=== PATIENT | male | born 1940 | race Caucasian/White ===

== ENCOUNTER 2016-09-26 13:42 | Emergency (ER) | payer MEDICARE, OTHER ==
[~2016-09-26 13:42] MED LIST: /PANT40TA; /WARF25TA; AMLO10TA; ASPI325T; ASPI81TA63 PO; ATOR1TAB21 PO; ATORVASTATIN PO; AUGM250S13 PO; BENA25TA4 PO; BISO10TA PEG; CEFA1TAB; CEPH25SS PO; CHIL1CHW5 PEG; CHLORHEXIDINE; CHLORHEXIDINE GLUCON; DIGO0.12 PO; DUCOLAX; ELIQ5TAB PO; HYDR25TA6; HYDROCHLOROTHIAZIDE; LASI40TA PO; LOSA50TA20 PO; MAGO400T PO; NEUR100C; PLAV75TA2; POTA20LI2 PO; PRIN10TA; TOPR100T; TYLE325T5 PO; TYLENOL #3; VALT500T; ZEBE5TAB PO; ZOCO20TA; ZOCO40TA
--- NOTE | 2016-09-26 15:09 | EDDOCDS ---
Physician Documentation [facility] Name: Ruddy Parekh Age: 76 yrs Sex: Male : 1940 Arrival Date: 09/26/2016 Time: 13:42 Bed I9 / Private MD: Disposition: 09/26/16 15:00 Discharged to Home/Self Care. Impression: Feeding difficulties - G tube replaced. - Condition is Stable. - Medication Reconciliation, Local Pharmacy Hours form. - Follow up: Private Physician; When: 1 - 2 days. - Problem is new. - Symptoms have improved. - Notes: diagnosis - feeding tube replaced. follow up with your primary care physician. return if worsening symptoms Historical: - Allergies: no known allergies; - Home Meds: 1. Eliquis 5 mg oral tab 2 times per day 2. aspirin 81 mg Oral tab 1 tab once daily 3. Jevity 1.5 Xander 0.06 gram-1.5 kcal/mL oral liqd 6x's day 4. atorvastatin 20 mg oral tab 1 tab once daily 5. bisoprolol fumarate 10 mg oral tab 1 tab once daily 6. digoxin 125 mcg Oral tab 1 tab once daily 7. losartan 25 mg oral tab 1 tab once daily - PMHx: Stroke; Hypertension; Hypercholesterolemia; Atrial Fib; cancer, neck; - PSHx: Carotid surgery; Tonsillectomy; Splenectomy; Appendectomy; feeding tube placement; - Social history: Smoking status: Patient states former smoker of tobacco. No barriers to communication noted, The patient speaks fluent Cuban. - Family history: Not pertinent. - : The pt / caregiver states he / she is on anticoagulants: Eliquis Home medication list is obtained from patients' pharmacy. - Exposure Risk Screening:: None identified. Vital Signs: 09/26 13:43 BP 203 / 112 LA Sitting (auto/reg); Pulse 80; Resp 18; Temp 98.8(O); Pulse Ox 97% ; bnb Weight 63.5 kg / 139.99 lbs; Height 5 ft. 6 in. (167.64 cm); Pain 0/10; 13:55 BP 180 / 102 LA Sitting (man/reg); jjr 13:43 Body Mass Index 22.60 (63.50 kg, 167.64 cm) bnb MDM: 14:48 Financial registration complete. [facility] Signatures: Hannah Gao MD MD ml Barney, Michael B RN RN mlb1 Sherry HolguinRN RN ck1 Linda Funk RN RN Alicia Sam jls1 The chart was reviewed and I authenticate all verbal orders and agree with the evaluation and treatment provided.Corrections: (The following items were deleted from the chart) 14:10 13:58 Home Meds: Kinjody coffeen; gurinder jjr 14:10 13:58 PMHx: cancer, tongue; carmelojr jjpedro MTDD
--- NOTE | 2016-09-26 15:09 | EDDOCDS ---
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 Adult Sepsis Screening: The patient does not have new or worsening altered mentation. Patient's respiratory rate is less than 22. Systolic blood pressure is greater than 100. Patient has a qSOFA score of 0- Negative Sepsis Screen. Suicide/Homicide risk assessment- the patient denies having any suicidal and/or homicidal ideations and does not present with any other emotional, behavioral or mental health complaints. 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 Transition of care: patient was not received from another setting of care. 13:55 Acuity: MANDY Level 4 jjr 13:55 Method Of Arrival: Walkin/Carried/Asstd jjr Triage Assessment: 13:58 General: Appears in no apparent distress. Pain: Denies pain. jjr Historical: - Allergies: no known allergies; - Home Meds: 1. Eliquis 5 mg oral tab 2 times per day 2. aspirin 81 mg Oral tab 1 tab once daily 3. Jevity 1.5 Xander 0.06 gram-1.5 kcal/mL oral liqd 6x's day 4. atorvastatin 20 mg oral tab 1 tab once daily 5. bisoprolol fumarate 10 mg oral tab 1 tab once daily 6. digoxin 125 mcg Oral tab 1 tab once daily 7. losartan 25 mg oral tab 1 tab once daily - PMHx: Stroke; Hypertension; Hypercholesterolemia; Atrial Fib; cancer, neck; - PSHx: Carotid surgery; Tonsillectomy; Splenectomy; Appendectomy; feeding tube placement; - Social history: Smoking status: Patient states former smoker of tobacco. No barriers to communication noted, The patient speaks fluent Persian. - Family history: Not pertinent. - : The pt / caregiver states he / she is on anticoagulants: Eliquis Home medication list is obtained from patients' pharmacy. - Exposure Risk Screening:: None identified. Screenin:22 Screening information is obtained from the patient. Fall risk: No risks identified. ck1 Assistance ADL's: requires no assistance with activities of daily living. Abuse/DV Screen: The patient / caregiver reports he/she is: not in a situation that causes fear, pain or injury. Nutritional screening: No deficits noted. Advance Directives: Currently, there is no health care proxy. home support is adequate. Assessment: 14:52 General: Appears in no apparent distress, Behavior is appropriate for age, cooperative. mlb1 Pain: Denies pain. GI: PEG tube replace by Dr. Cary tolerated well. Derm: No deficits noted. Vital Signs: 13:43 BP 203 / 112 LA Sitting (auto/reg); Pulse 80; Resp 18; Temp 98.8(O); Pulse Ox 97% ; bnb Weight 63.5 kg; Height 5 ft. 6 in. (167.64 cm); Pain 0/10; 13:55 BP 180 / 102 LA Sitting (man/reg); jjr 13:43 Body Mass Index 22.60 (63.50 kg, 167.64 cm) b Vitals: 13:43 Log In Time: September 26, 2016 at 13:40. bnb 13:43 RN notified that patient meets Red Flag criteria. [facility] ED Course: 13:43 Patient visited by Kelsie Mcarthur PCA. bnb 13:43 Patient moved to Waiting bnb 13:56 Triage Initiated jjr 14:00 Patient moved to Pre RCE jjr 14:11 Patient moved to I9 / 22 jjr 14:12 Hannah Gao MD is Attending Physician. ml 14:12 Patient visited by Hannah Gao MD. ml 14:22 The patient / caregiver is instructed regarding the plan of care and ED course. ck1 14:53 No IV's were initiated during this patient's visit. No procedures done that require mlb1 assistance. Order Results: There are currently no results for this order. Outcome: 15:00 Discharge ordered by Provider. ml 15:06 Discharge Assessment: Patient awake, alert and oriented x 3. No cognitive and/or mlb1 functional deficits noted. Patient verbalized understanding of disposition instructions. patient administered narcotics - no. The following High Risk Discharge criteria are identified: None. Discharged to Pt left prior to receiving discharge instruction. Instructions given verbally by MD prior to being printed. Condition: good. No special radiology studies were completed. Property sent home with patient. 15:07 Patient left the ED. mlb1 Signatures: Hannah Gao MD MD ml Oliverio Polanco RN RN mlb1 Sherry HolguinRN RN ck1 Linda Funk RN RN jjr Kelsie Mcarthur, LEO TUBE CUTTER OPERATOR bnb Corrections: (The following items were deleted from the chart) 14:10 13:58 Home Meds: Lewis burgosn; jjpedro jjr 14:10 13:58 PMHx: cancer, tongue; jjr jjr MTDD
--- NOTE | 2016-09-28 16:08 | EDDOCDS ---
Physician Documentation [facility] Name: Ruddy Parekh Age: 76 yrs Sex: Male : 1940 Arrival Date: 09/26/2016 Time: 13:42 Bed I9 / Private MD: Disposition: 09/26/16 15:00 Discharged to Home/Self Care. Impression: Feeding difficulties - G tube replaced. - Condition is Stable. - Medication Reconciliation, Local Pharmacy Hours form. - Follow up: Private Physician; When: 1 - 2 days. - Problem is new. - Symptoms have improved. - Notes: diagnosis - feeding tube replaced. follow up with your primary care physician. return if worsening symptoms Historical: - Allergies: no known allergies; - Home Meds: 1. Eliquis 5 mg oral tab 2 times per day 2. aspirin 81 mg Oral tab 1 tab once daily 3. Jevity 1.5 Xander 0.06 gram-1.5 kcal/mL oral liqd 6x's day 4. atorvastatin 20 mg oral tab 1 tab once daily 5. bisoprolol fumarate 10 mg oral tab 1 tab once daily 6. digoxin 125 mcg Oral tab 1 tab once daily 7. losartan 25 mg oral tab 1 tab once daily - PMHx: Stroke; Hypertension; Hypercholesterolemia; Atrial Fib; cancer, neck; - PSHx: Carotid surgery; Tonsillectomy; Splenectomy; Appendectomy; feeding tube placement; - Social history: Smoking status: Patient states former smoker of tobacco. No barriers to communication noted, The patient speaks fluent Slovak. - Family history: Not pertinent. - : The pt / caregiver states he / she is on anticoagulants: Eliquis Home medication list is obtained from patients' pharmacy. - Exposure Risk Screening:: None identified. Vital Signs: 09/26 13:43 BP 203 / 112 LA Sitting (auto/reg); Pulse 80; Resp 18; Temp 98.8(O); Pulse Ox 97% ; bnb Weight 63.5 kg / 139.99 lbs; Height 5 ft. 6 in. (167.64 cm); Pain 0/10; 13:55 BP 180 / 102 LA Sitting (man/reg); jjr 13:43 Body Mass Index 22.60 (63.50 kg, 167.64 cm) bnb MDM: 14:48 Financial registration complete. jls1 15:16 [facility] Payment Agreement was scanned into [employer] and attached to record. jl 19:50 T-Sheet-- Draft Copy was scanned into [employer] and attached to record. klr Signatures: Hannah Gao MD MD ml Barney, Michael B RN RN mlb1 Sherry Holguin RN RN ck1 Linda Funk RN RN jjAlicia Brooks jls1 Melodie Bowen The chart was reviewed and I authenticate all verbal orders and agree with the evaluation and treatment provided.Corrections: (The following items were deleted from the chart) 14:10 13:58 Home Meds: Kinjody coffeen; gurinder jjr 14:10 13:58 PMHx: cancer, tongue; jjpedro jjpedro Attachments: 15:16 [facility] Payment Agreement [facility] 19:50 T-Sheet-- Draft Copy klr Chart Complete MTDD
--- NOTE | 2016-09-28 16:08 | EDDOCDS ---
Physician Documentation [facility] Name: Ruddy Parekh Age: 76 yrs Sex: Male : 1940 Arrival Date: 09/26/2016 Time: 13:42 Bed I9 / Private MD: Disposition: 09/26/16 15:00 Discharged to Home/Self Care. Impression: Feeding difficulties - G tube replaced. - Condition is Stable. - Medication Reconciliation, Local Pharmacy Hours form. - Follow up: Private Physician; When: 1 - 2 days. - Problem is new. - Symptoms have improved. - Notes: diagnosis - feeding tube replaced. follow up with your primary care physician. return if worsening symptoms Historical: - Allergies: no known allergies; - Home Meds: 1. Eliquis 5 mg oral tab 2 times per day 2. aspirin 81 mg Oral tab 1 tab once daily 3. Jevity 1.5 Xander 0.06 gram-1.5 kcal/mL oral liqd 6x's day 4. atorvastatin 20 mg oral tab 1 tab once daily 5. bisoprolol fumarate 10 mg oral tab 1 tab once daily 6. digoxin 125 mcg Oral tab 1 tab once daily 7. losartan 25 mg oral tab 1 tab once daily - PMHx: Stroke; Hypertension; Hypercholesterolemia; Atrial Fib; cancer, neck; - PSHx: Carotid surgery; Tonsillectomy; Splenectomy; Appendectomy; feeding tube placement; - Social history: Smoking status: Patient states former smoker of tobacco. No barriers to communication noted, The patient speaks fluent Tanzanian. - Family history: Not pertinent. - : The pt / caregiver states he / she is on anticoagulants: Eliquis Home medication list is obtained from patients' pharmacy. - Exposure Risk Screening:: None identified. Vital Signs: 09/26 13:43 BP 203 / 112 LA Sitting (auto/reg); Pulse 80; Resp 18; Temp 98.8(O); Pulse Ox 97% ; bnb Weight 63.5 kg / 139.99 lbs; Height 5 ft. 6 in. (167.64 cm); Pain 0/10; 13:55 BP 180 / 102 LA Sitting (man/reg); jjr 13:43 Body Mass Index 22.60 (63.50 kg, 167.64 cm) bnb MDM: 14:48 Financial registration complete. jls1 15:16 [facility] Payment Agreement was scanned into [employer] and attached to record. jl 19:50 T-Sheet-- Draft Copy was scanned into [employer] and attached to record. klr Signatures: Hannah Gao MD MD ml Barney, Michael B RN RN mlb1 Sherry Holguin RN RN ck1 Linda Funk RN RN jjAlicia Brooks jls1 Melodie Bowen The chart was reviewed and I authenticate all verbal orders and agree with the evaluation and treatment provided.Corrections: (The following items were deleted from the chart) 14:10 13:58 Home Meds: Kinjody coffeen; gurinder jjr 14:10 13:58 PMHx: cancer, tongue; jjpedro jjpedro Attachments: 15:16 [facility] Payment Agreement [facility] 19:50 T-Sheet-- Draft Copy klr Chart Complete MTDD
--- NOTE | 2016-09-28 16:08 | EDDOCDS ---
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 Adult Sepsis Screening: The patient does not have new or worsening altered mentation. Patient's respiratory rate is less than 22. Systolic blood pressure is greater than 100. Patient has a qSOFA score of 0- Negative Sepsis Screen. Suicide/Homicide risk assessment- the patient denies having any suicidal and/or homicidal ideations and does not present with any other emotional, behavioral or mental health complaints. Status: Patient is not a service worker helper or dependent. Transition of care: patient was not received from another setting of care. 13:55 Acuity: MANDY Level 4 jjr 13:55 Method Of Arrival: Walkin/Carried/Asstd jjr Triage Assessment: 13:58 General: Appears in no apparent distress. Pain: Denies pain. jjr Historical: - Allergies: no known allergies; - Home Meds: 1. Eliquis 5 mg oral tab 2 times per day 2. aspirin 81 mg Oral tab 1 tab once daily 3. Jevity 1.5 Xander 0.06 gram-1.5 kcal/mL oral liqd 6x's day 4. atorvastatin 20 mg oral tab 1 tab once daily 5. bisoprolol fumarate 10 mg oral tab 1 tab once daily 6. digoxin 125 mcg Oral tab 1 tab once daily 7. losartan 25 mg oral tab 1 tab once daily - PMHx: Stroke; Hypertension; Hypercholesterolemia; Atrial Fib; cancer, neck; - PSHx: Carotid surgery; Tonsillectomy; Splenectomy; Appendectomy; feeding tube placement; - Social history: Smoking status: Patient states former smoker of tobacco. No barriers to communication noted, The patient speaks fluent Bermudian. - Family history: Not pertinent. - : The pt / caregiver states he / she is on anticoagulants: Eliquis Home medication list is obtained from patients' pharmacy. - Exposure Risk Screening:: None identified. Screenin:22 Screening information is obtained from the patient. Fall risk: No risks identified. ck1 Assistance ADL's: requires no assistance with activities of daily living. Abuse/DV Screen: The patient / caregiver reports he/she is: not in a situation that causes fear, pain or injury. Nutritional screening: No deficits noted. Advance Directives: Currently, there is no health care proxy. home support is adequate. Assessment: 14:52 General: Appears in no apparent distress, Behavior is appropriate for age, cooperative. mlb1 Pain: Denies pain. GI: PEG tube replace by Dr. Cary tolerated well. Derm: No deficits noted. Vital Signs: 13:43 BP 203 / 112 LA Sitting (auto/reg); Pulse 80; Resp 18; Temp 98.8(O); Pulse Ox 97% ; bnb Weight 63.5 kg; Height 5 ft. 6 in. (167.64 cm); Pain 0/10; 13:55 BP 180 / 102 LA Sitting (man/reg); jjr 13:43 Body Mass Index 22.60 (63.50 kg, 167.64 cm) b Vitals: 13:43 Log In Time: September 26, 2016 at 13:40. bnb 13:43 RN notified that patient meets Red Flag criteria. b ED Course: 13:43 Patient visited by Kelsie Mcarthur PCA. bnb 13:43 Patient moved to Waiting bnb 13:56 Triage Initiated jjr 14:00 Patient moved to Pre RCE jjr 14:11 Patient moved to I9 / 22 jjr 14:12 Hannah Gao MD is Attending Physician. ml 14:12 Patient visited by Hannah Gao MD. ml 14:22 The patient / caregiver is instructed regarding the plan of care and ED course. ck1 14:53 No IV's were initiated during this patient's visit. No procedures done that require mlb1 assistance. 15:16 [facility] Payment Agreement was scanned into [employer] and attached to record. jls1 19:50 T-Sheet-- Draft Copy was scanned into [employer] and attached to record. klr Order Results: There are currently no results for this order. Outcome: 15:00 Discharge ordered by Provider. ml 15:06 Discharge Assessment: Patient awake, alert and oriented x 3. No cognitive and/or mlb1 functional deficits noted. Patient verbalized understanding of disposition instructions. patient administered narcotics - no. The following High Risk Discharge criteria are identified: None. Discharged to Pt left prior to receiving discharge instruction. Instructions given verbally by MD prior to being printed. Condition: good. No special radiology studies were completed. Property sent home with patient. 15:07 Patient left the ED. mlb1 Signatures: Hannah Gao MD MD ml Oliverio Polanco RN RN mlb1 Sherry Holguin RN RN ck1 Linda Funk RN RN Alicia Sam jls1 Melodie Bowen Brittney, LEO HOTEL OPERATION MANAGER bnb Corrections: (The following items were deleted from the chart) 14:10 13:58 Home Meds: Lewis brandon; gurinder jjr 14:10 13:58 PMHx: cancer, tongue; gurinder jjr Chart Complete MTDD
== END 2016-09-26 15:07 | disposition home or self-care (01) ==
LOC: M ED 13:42
DX: R63.3 Feeding difficulties (principal); Z96.89 Presence of other specified functional implants; I63.9 Cerebral infarction, unspecified; I10 Essential (primary) hypertension; E78.00 Pure hypercholesterolemia, unspecified; I48.91 Unspecified atrial fibrillation; Z85.9 Personal history of malignant neoplasm, unspecified; Z87.891 Personal history of nicotine dependence; Z79.01 Long term (current) use of anticoagulants; Z79.82 Long term (current) use of aspirin; Z79.899 Other long term (current) drug therapy

== ENCOUNTER 2017-01-22 10:53 | Emergency (ER) | payer MEDICARE, OTHER ==
[~2017-01-22] VITALS: Ht 167.6 cm; Wt 64.4 kg
[2017-01-22] MEDS ORDERED: NYST50SS SS (11:06)
[2017-01-22] MEDS ORDERED: ALBUTEROL SULFATE 2.5 MG/0.5 ML INH NEB SOLN NEB ONE (12:00)
--- NOTE | 2017-01-22 12:03 | REP ---
PA and lateral chest: There are parous is 01/10/2015. Lung cesar are clear. Cardiac size is borderline enlarged, unchanged. The magalis, mediastinum, and bony thorax are unremarkable. There are surgical clips in the soft tissues of the neck on the left, unchanged. Impression: No acute cardiopulmonary findings. Chronic borderline cardiac size. Signed by Todd Herrera MD 01/22/2017 11:55 A
[2017-01-22] MEDS ORDERED: AVEL400T PEG (12:46)
[2017-01-22] MEDS ORDERED: ALBU17IN2 INH (12:47)
[2017-01-22 12:58] VITALS: BP 148/78
== END 2017-01-22 13:01 | disposition home or self-care (01) ==
LOC: M ED 11:24
DX: J20.9 Acute bronchitis, unspecified (principal); J45.901 Unspecified asthma with (acute) exacerbation; I25.10 Atherosclerotic heart disease of native coronary artery without angina pectoris; I10 Essential (primary) hypertension; E78.00 Pure hypercholesterolemia, unspecified; Z86.73 Personal history of transient ischemic attack (TIA), and cerebral infarction without residual deficits; Z95.5 Presence of coronary angioplasty implant and graft; Z90.89 Acquired absence of other organs; Z85.810 Personal history of malignant neoplasm of tongue; Z79.01 Long term (current) use of anticoagulants; Z79.899 Other long term (current) drug therapy; Z87.891 Personal history of nicotine dependence; Z93.1 Gastrostomy status

== ENCOUNTER 2017-05-24 09:18 | Inpatient (IN) | payer MEDICARE, OTHER ==
[~2017-05-24] VITALS: Ht 167.6 cm; Wt 62.6 kg
[~2017-05-24 09:18] MED LIST changes: +ALBU17IN2 INH; +ATOR1TAB21 PEG; -ATOR1TAB21 PO; +AVEL400T PEG; +BISOPROLOL FUMARATE 10 MG TAB PEG SCH; -CHIL1CHW5 PEG; +CHIL81CH2 PEG; +DIGO0.12 PEG; -DIGO0.12 PO; +NYST50SS SS
[2017-05-24] MEDS ORDERED: JEVILIQ10 PEG (09:32)
[2017-05-24] MEDS ORDERED: methylPREDNISolone INJ 125 MG/2 ML VIAL (J2930) IV ONE (09:45)
[2017-05-24] MEDS: IPRATROPIUM 0.5MG/ALBUTEROL 2.5MG INH SOL UD 3ML (DUONEB)(J7620) NEB PRN ×3 (09:46→10:04)
[2017-05-24 10:03] LABS: BASO # 0.1 10^3/uL (0.0-0.2); BASO % 0.2 % (0.0-1.0); IMMATURE GRANULOCYTE % 0.8 % (0-0); LYMPH # 0.9 10^3/uL (1.5-4.5); LYMPH % 3.1 % (24.0-44.0); MEAN CORPUSCULAR HGB CONC 33.5 g/dl (32.0-36.5); MEAN CORPUSCULAR VOLUME 98.3 fl (80.0-96.0); MONO % 3.4 % (0.0-5.0); NEUTROPHILS % 92.5 % (36.0-66.0); PLATELET COUNT, AUTOMATED 225 10^3/uL (150-450); RED CELL DISTRIBUTION WIDTH 13.2 % (11.5-14.5); WHITE BLOOD COUNT 29.9 10^3/uL (4.0-10.0)
[2017-05-24 10:12] LABS: ANION GAP 11 MEQ/L (8-16); BLOOD UREA NITROGEN 19 MG/DL (7-18); CALCIUM LEVEL 9.5 MG/DL (8.8-10.2); CARBON DIOXIDE LEVEL 25 MEQ/L (21-32); CHLORIDE LEVEL 102 MEQ/L (98-107); CREATININE FOR GFR 1.12 MG/DL (0.70-1.30); GLOMERULAR FILTRATION RATE > 60.0 (>42); GLUCOSE, FASTING 174 MG/DL (83-110); SODIUM LEVEL 138 MEQ/L (136-145)
[2017-05-24 10:13] LABS: NEUTROPHILS # 27.7 10^3/uL (1.8-7.7)
[2017-05-24 10:22] LABS: DIGOXIN LEVEL 0.7 NG/ML (0.5-2.0)
[2017-05-24 10:36] VITALS: O2SAT 92
[2017-05-24] MEDS ORDERED: FUROSEMIDE 40 MG/4 ML VIAL (J1940) IV ONE (10:45)
--- NOTE | 2017-05-24 10:52 | REP ---
Chest x-ray: Two views. History: Dyspnea and cough. Comparison chest x-ray January 22, 2017. Findings: The lungs are symmetrically aerated and free of infiltrate. Pleural angles are sharp. Heart size is normal. There are surgical clips in the supraclavicular soft tissues on the left again noted. The aorta is calcific. There are degenerative changes in the thoracic spine. Impression: No active disease. Signed by Drew Zacarias MD 05/24/2017 05:27 P
[2017-05-24] MEDS ORDERED: ONDANSETRON 4 MG TAB (S0181) PO PRN (11:30)
[2017-05-24] MEDS ORDERED: ACETAMINOPHEN TAB 650MG DOSE (2X325MG) PO PRN (11:30)
[2017-05-24] MEDS ORDERED: ONDANSETRON 4MG/2ML VIAL (J2405) IV PRN (11:30)
[2017-05-24] MEDS ORDERED: PERCOCET 5MG/325MG TAB PO PRN (11:30)
[2017-05-24] MEDS ORDERED: LOSA25TA8 PEG (11:40)
[2017-05-24] MEDS ORDERED: BISO10TA PEG (11:40)
[2017-05-24] MEDS ORDERED: LevoFLOXacin IV 750 MG in APPROPRIATE DILUENT 1 EA IV SCH (12:00)
[2017-05-24] MEDS ORDERED: CLINDAMYCIN 300 MG in APPROPRIATE DILUENT 1 EA IV SCH (12:00)
[2017-05-24] MEDS ORDERED: IPRATROPIUM 0.5MG/ALBUTEROL 2.5MG INH SOL UD 3ML (DUONEB)(J7620) NEB SCH (14:00)
[2017-05-24 15:00] VITALS: BP 132/68
--- NOTE | 2017-05-24 15:17 | REP ---
CT study of the chest without contrast: History: Cough. History of carcinoma the neck. Possible aspiration. Leukocytosis. Comparison chest CT study: April 28, 2015. Comparison is made with chest x-ray from today. CT findings: The lungs show no evidence of infiltrate. No pulmonary nodule or mass lesion is observed. There is fairly extensive vascular calcification. Fluid is seen throughout the thoracic esophagus without esophageal dilation consistent with reflux. Fluid filled stomach is noted. Gastrostomy tube is noted in place within the stomach. There is a faint calcification in the dependent portion the gallbladder consistent with cholelithiasis. Left renal cyst is noted. There is a left hepatic cyst. No hilar mass lesion is seen. There is subcarinal lymph node enlargement. This is unchanged from the comparison CT study in 2014. Stable precarinal lymph nodes are seen. No adrenal lesion is observed. Impression: No evidence of infiltrate, pleural effusion or pulmonary edema. Vascular calcification noted. Left renal and the left lobe hepatic cysts. Evidence of gastroesophageal reflux. G tube in place. Signed by Drew Zacarias MD 05/24/2017 05:28 P
--- NOTE | 2017-05-24 17:13 | HPEPDOC ---
[facility] Medical History & Physical Date of Admission May 24, 2017 History and Physical HISTORY AND PHYSICAL Date of admission: 05/24/2017 PCP: Dr. Bri Buenrostro Chief complaint: Cough with associated chest pain HPI: 77-year-old male with hypertension, hyperlipidemia, history of CVA 2, atrial fibrillation, head and neck cancer status post surgical excision as well as chemotherapy and radiation, chronic dysphasia secondary to cancer treatment with PEG tube feeds who presented to the emergency department with cough and associated chest pain. He states that he started coughing more than usual approximately 2-3 days ago, and was even up all night from the cough. Yesterday , he started having chest pain that occurred when he coughed, and he was concerned that maybe he was having a heart attack, so he came to the emergency department. He states that the chest pain only occurs when he coughs. He also states that because he was coughing so much, he vomited last night and today. He denies any fevers, and states that he does not usually use oxygen at home. In the emergency department, there is concern that he was fluid overloaded, so he received a dose of Lasix. There is also concern that he was having a COPD exacerbation, although, the patient tells me that he has never been diagnosed with COPD. He received Solu-Medrol in the emergency department, but the patient denies any other recent steroids. He tells me that he knows he is not supposed to lay flat, but he does anyways. Past medical history: hypertension, hyperlipidemia, history of CVA 2, atrial fibrillation, head and neck cancer status post surgical excision as well as chemotherapy and radiation, chronic dysphasia secondary to cancer treatment with PEG tube feeds Past surgical history: PEG tube placement, left tonsillectomy, splenectomy, appendectomy, left carotid surgery secondary to neck cancer excision, cardiac stent Family history: Alcoholism and Alzheimer's Social history: The patient states that he quit smoking approximately 35 years ago. He states that he puts vodka in his PEG tube on occasion, but this does not even occur on a regular weekly basis. He denies any current or prior drug use. Allergies: Contrast media, iodine Review of systems: General: Negative for fever and chills Eyes: Negative for vision changes and ocular discharge ENT: Positive for sore throat, negative for nose bleed Cardiovascular: Positive for chest pain, negative for palpitations Respiratory: Positive for cough and shortness of breath GI: Negative for nausea, diarrhea, constipation, positive for vomiting Musculoskeletal: Negative for neck and back pain Skin: Negative for rash Neuro: Negative for headache, dizziness, numbness, tingling Psych: Negative for depression and suicidal ideation Endocrine: Positive for polyuria : Negative for dysuria Heme: Positive for streaks of blood in his sputum Home meds: See below Physical exam: Vital signs: Vital Sign - Last 24 Hours 05/24/17 05/24/17 05/24/17 05/24/17 09:18 09:37 09:44 09:48 Temp 97.8 Pulse 110 92 Resp 16 B/P (MAP) 179/87 (117) 143/96 (112) Pulse Ox 96 93 O2 Delivery Room Air Room Air 05/24/17 05/24/17 05/24/17 05/24/17 10:03 10:18 10:30 10:33 Pulse 126 146 138 B/P (MAP) 200/102 (134) Pulse Ox 100 98 95 05/24/17 05/24/17 05/24/17 05/24/17 10:36 10:48 10:52 11:03 Pulse 128 126 B/P (MAP) 148/76 (100) Pulse Ox 92 95 94 O2 Delivery Nasal Cannula O2 Flow Rate 2.0 05/24/17 05/24/17 05/24/17 05/24/17 11:12 11:18 11:18 11:33 Pulse 122 122 B/P (MAP) 123/77 (92) 154/73 (100) Pulse Ox 95 05/24/17 05/24/17 05/24/17 05/24/17 11:48 12:03 12:18 12:33 Pulse 116 112 110 B/P (MAP) 163/110 (127) 114/70 (85) Pulse Ox 93 93 93 05/24/17 05/24/17 05/24/17 05/24/17 12:48 13:03 13:18 13:33 Pulse 110 110 120 B/P (MAP) 131/75 (93) 133/66 (88) Pulse Ox 94 94 98 O2 Flow Rate 2.0 05/24/17 05/24/17 05/24/17 05/24/17 13:48 13:50 14:03 14:18 Temp 98.2 Pulse 116 112 114 Resp 18 B/P (MAP) 92/54 (67) 100/59 (73) Pulse Ox 93 95 93 05/24/17 05/24/17 05/24/17 14:33 15:00 15:00 Temp 99.0 Pulse 114 100 Resp 18 B/P (MAP) 132/68 (89) Pulse Ox 93 96 O2 Delivery Nasal Cannula Nasal Cannula O2 Flow Rate 2.0 2.0 Gen.: awake, alert, no acute distress Eyes: Extraocular movements intact, normal sclera ENT: Moist mucous membranes Cardiovascular: Irregularly irregular Lungs: clear to auscultation bilaterally, no rales, rhonchi, or wheeze Abdomen: Soft, NT/ND, normal BS Extremities: No peripheral edema Neuro: alert and oriented 3, at baseline the patient has a hoarse voice, no focal deficits Psych: Normal mood with congruent affect Labs and radiology: See below WBC 29.9 Initial troponin negative Pro BNP greater than 9000 Digoxin level in BMP within normal limits Chest x-ray negative for acute findings UA negative for infection Blood cultures pending CT of the chest negative for acute findings EKG shows rate-controlled A. fib Assessment and plan: 77-year-old male with hypertension, hyperlipidemia, history of CVA 2, atrial fibrillation, head and neck cancer status post surgical excision as well as chemotherapy and radiation, chronic dysphagnpoia secondary to cancer treatment with PEG tube feeds who presented to the emergency department with cough and associated chest pain. He is admitted with concern for aspiration pneumonia. 1. Chest pain: I suspect this is secondary to his cough as it only occurs when he coughs. Initial EKG does not show acute infarct or ischemia and initial troponin is negative. We'll continue to trend troponins and monitor him on telemetry. 2. Aspiration pneumonia: The patient is afebrile, but he has a significantly elevated white count of 29.9. Although his chest imaging is currently negative for acute findings, I suspect that when he vomited last night and this morning, he potentially aspirated, and it is simply too soon for us to be able to see any changes on his chest imaging. At this time, we will presumptively treat him for aspiration pneumonia with Unasyn. We will check a sputum culture and follow up his blood cultures. He is nothing by mouth, and we will request a speech swallow evaluation. He also is not evidently on any PPIs chronically, so we will start a PPI, as well as some Reglan. Given his significantly elevated white count, and no clear source of infection at this time, we will also check a UA and urine culture. 3. Elevated proBNP: At this time, the patient clinically does not appear volume overloaded, and his chest imaging does not show evidence of overload. He did receive 1 dose of Lasix in the emergency department. At this time, we will hold off on any further Lasix, but we will check an echocardiogram. We'll also follow I's and O's and daily weights. 4. Chronic atrial fibrillation: Patient is currently rate controlled. We will monitor him on telemetry and continue his home digoxin, beta flores, and eliquis. 5. Hypertension: Continue home beta flores and ARB. 6. History of CVA 2, hyperlipidemia: Continue home aspirin, statin, and blood pressure control. 7. Chronic dysphagia: Continue home tube feeds; Per the patient, he uses Jevity 1.5 one can 5 times a day. He is unsure of how much free water flush he does after each feed, but a prior dietary note mentions that he should do 100 mL, which we will continue here. 8. Possible reactive airway: In the emergency department, they initially thought the patient had COPD, and even gave him steroids as they felt he was wheezing. The patient states he has never been diagnosed with COPD. Although he may have some component of reactive airway, I suspect that this is secondary to his chronic dysphagia and likely GERD, which is causing him to cough. We will continue with some steroids, but we will wean them quickly. The patient will also have breathing treatments as needed. DVT prophylaxis: home eliquis Dispo: admit as inpatient to the service of Dr. Vasquez CODE STATUS: DNR/DNI as per the patient's expressed wishes Vital Signs Vital Signs Date Time Temp Pulse Resp B/P (MAP) Pulse Ox O2 Delivery O2 Flow Rate FiO2 05/24/17 15:00 99.0 100 18 132/68 (89) 96 Nasal Cannula 2.0 Laboratory Data Labs 24H Laboratory Tests 2 05/24/17 09:35: Immature Granulocyte % (Auto) 0.8H, White Blood Count 29.9H, Red Blood Count 4.73, Hemoglobin 15.6, Hematocrit 46.5, Mean Corpuscular Volume 98.3H, Mean Corpuscular Hemoglobin 33.0, Mean Corpuscular Hemoglobin Concent 33.5, Red Cell Distribution Width 13.2, Platelet Count 225, Neutrophils (%) (Auto) 92.5H, Lymphocytes (%) (Auto) 3.1L, Monocytes (%) (Auto) 3.4, Eosinophils (%) (Auto) 0.0, Basophils (%) (Auto) 0.2, Neutrophils # (Auto) 27.7H, Lymphocytes # (Auto) 0.9L, Monocytes # (Auto) 1.0H, Eosinophils # (Auto) 0.0, Basophils # (Auto) 0.1 , Immature Granulocyte # (Auto) 0.2H, Nucleated Red Blood Cells % (auto) 0.0, Anion Gap 11, Glomerular Filtration Rate > 60.0, Blood Urea Nitrogen 19H, Creatinine 1.12, Sodium Level 138, Potassium Level 4.0, Chloride Level 102, Carbon Dioxide Level 25, Calcium Level 9.5, Total Creatine Kinase 124, Creatine Kinase MB 2.8, Creatine Kinase MB Relative Index 2.25, Troponin I 0.03, NT-Pro-B -Type Natriuretic Peptide 9237H, Digoxin Level 0.7 05/24/17 11:38: Urine Appearance CLEAR, Urine Color YELLOW, Urine pH 5.0, Urine Specific [place] 1.012, Urine Protein 1+H, Urine Glucose (UA) 1+H, Urine Ketones TRACEH, Urine Urobilinogen 0.2, Urine Bilirubin NEGATIVE, Urine Leukocyte Esterase NEGATIVE, Urine Blood NEGATIVE, Urine Nitrite NEGATIVE, Urine WBC (Auto) 1, Urine RBC (Auto) 4H, Urine Hyaline Casts (Auto) 0, Urine Bacteria (Auto) 1+H, Urine Squamous Epithelial Cells 0, Urine Mucus (Auto) SMALL, Urine Sperm (Auto) 05/24/17 15:59: Total Creatine Kinase 197, Creatine Kinase MB 4.5H, Creatine Kinase MB Relative Index 2.28, Troponin I 0.06# CBC/BMP Laboratory Tests 05/24/17 09:35 Red Blood Count 4.73, Mean Corpuscular Volume 98.3 H, Mean Corpuscular Hemoglobin 33.0, Mean Corpuscular Hemoglobin Concent 33.5, Red Cell Distribution Width 13.2, Neutrophils (%) (Auto) 92.5 H, Lymphocytes (%) (Auto) 3.1 L, Monocytes (%) (Auto) 3.4, Eosinophils (%) (Auto) 0.0, Basophils (%) (Auto ) 0.2, Neutrophils # (Auto) 27.7 H, Lymphocytes # (Auto) 0.9 L, Monocytes # ( Auto) 1.0 H, Eosinophils # (Auto) 0.0, Basophils # (Auto) 0.1, Calcium Level 9.5 , Total Creatine Kinase 124 Microbiology Microbiology 05/24/17 Blood Culture, Received Pending 05/24/17 Blood Culture, Received Pending 05/24/17 Urine Culture, Received Pending Home Medications Scheduled (Jevity 1.5 Xander) 1 Liq Liq, 1 LIQ PEG 6XD Apixaban Base (Eliquis) 5 Mg Tab, 5 MG PO BID Aspirin (Childrens Aspirin) 81 Mg Chew, 81 MG PEG DAILY Atorvastatin Calcium (Atorvastatin Calcium) 20 Mg Tab, 20 MG PEG QHS Bisoprolol Fumarate (Zebeta) 10 Mg Tab, 10 MG PEG DAILY Digoxin (Digoxin) 0.125 Mg Tab, 0.125 MG PEG DAILY Losartan Potassium (Losartan Potassium) 25 Mg Tab, 25 MG PEG DAILY Scheduled PRN Albuterol Sulfate (Proventil Hfa) 167 Puff/6.7 Gm Aers, 2 PUFFS INH Q4HP PRN for WHEEZING Allergies Coded Allergies: Contrast Media (Verified Allergy, Mild, RASH, 06/17/14) Iodine (Verified Allergy, Unknown, 06/17/14) LEE VASQUEZ May 24, 2017 17:13
[2017-05-24] MEDS ORDERED: methylPREDNISolone INJ 40 MG/1 ML VIAL (J2920) IV SCH (18:00)
[2017-05-24] MEDS: methylPREDNISolone INJ 40 MG/1 ML VIAL (J2920) IV SCH (18:02)
[2017-05-24] MEDS: AMPICILLIN SOD/SULBACTAM SOD 1.5 GM in D5W 50 ML IV SCH ×2 (18:03→23:43)
[2017-05-24] MEDS: METOCLOPRAMIDE HCL LIQUID 10 MG/10 ML UDC PEG SCH ×2 (18:19→22:16)
[2017-05-24] MEDS: LOSARTAN 25 MG TAB PEG SCH (18:20)
[2017-05-24] MEDS: DIGOXIN 0.125 MG TAB PEG SCH (18:20)
[2017-05-24] MEDS: PANTOPRAZOLE SODIUM 40 MG in D5W 50 ML IV SCH ×2 (19:42→23:42)
[2017-05-24 20:00] VITALS: BP 140/77
--- NOTE | 2017-05-24 20:33 | ECGEPIP ---
Stationary ECG Study [facility] - ED Test Date: 2017-05-24 Pat Name: AALIYAH LAYTON Department: Room: - Gender: M Scheduling Assistant: yaya : [id number] Requested By: Leo Nation Order Number: [id number] Reading MD: Dyan Hopkins Measurements Intervals [place] Rate: 91 P: CT: 0 QRS: 27 QRSD: 90 T: -10 QT: 363 QTc: 447 Interpretive Statements ATRIAL FIBRILLATION NONSPECIFIC ST & T-WAVE ABNORMALITY ABNORMAL RHYTHM ECG DECREASED RATE 03/05/15 Electronically Signed On 05-24-2017 20:33:13 EDT by Dyan Hopkins
[2017-05-24] MEDS: ATORVASTATIN 20 MG TAB PEG SCH (21:00)
[2017-05-24] MEDS ORDERED: LANSOPRAZOLE SUSPENSION 30 MG/10 ML ORAL SYRINGE (FIRST-LANSOPRAZOLE) PO SCH (21:00)
[2017-05-24 23:38] VITALS: BP 116/56
[2017-05-25] VITALS (10 sets, daily range): BP systolic 112–160; BP diastolic 64–96
[2017-05-25] MEDS: IPRATROPIUM 0.5MG/ALBUTEROL 2.5MG INH SOL UD 3ML (DUONEB)(J7620) NEB PRN ×2 (00:04→03:50)
[2017-05-25] MEDS: methylPREDNISolone INJ 40 MG/1 ML VIAL (J2920) IV SCH ×3 (02:44→21:03)
[2017-05-25] MEDS: METOCLOPRAMIDE HCL LIQUID 10 MG/10 ML UDC PEG SCH ×3 (02:53→17:55)
[2017-05-25] MEDS ORDERED: METOPROLOL 5 MG/5 ML VIAL IV STA (04:38)
[2017-05-25] MEDS: PANTOPRAZOLE SODIUM 40 MG in D5W 50 ML IV SCH ×3 (05:01→17:08)
[2017-05-25] MEDS: AMPICILLIN SOD/SULBACTAM SOD 1.5 GM in D5W 50 ML IV SCH ×3 (05:01→17:55)
[2017-05-25 06:33] LABS: BASO % 0.1 % (0.0-1.0); IMMATURE GRANULOCYTE % 1.3 % (0-0); LYMPH # 0.9 10^3/uL (1.5-4.5); LYMPH % 2.9 % (24.0-44.0); MEAN CORPUSCULAR HEMOGLOBIN 33.5 pg (27.0-33.0); MEAN CORPUSCULAR HGB CONC 34.7 g/dl (32.0-36.5); MEAN CORPUSCULAR VOLUME 96.5 fl (80.0-96.0); MONO # 0.6 10^3/uL (0.0-0.8); MONO % 2.1 % (0.0-5.0); PLATELET COUNT, AUTOMATED 214 10^3/uL (150-450); RED CELL DISTRIBUTION WIDTH 13.5 % (11.5-14.5); WHITE BLOOD COUNT 29.9 10^3/uL (4.0-10.0)
[2017-05-25 06:48] LABS: NEUTROPHILS # 27.9 10^3/uL (1.8-7.7)
[2017-05-25 06:56] LABS: ANION GAP 7 MEQ/L (8-16); CALCIUM LEVEL 9.1 MG/DL (8.8-10.2); CARBON DIOXIDE LEVEL 27 MEQ/L (21-32); CHLORIDE LEVEL 103 MEQ/L (98-107); CREATININE FOR GFR 0.98 MG/DL (0.70-1.30); GLOMERULAR FILTRATION RATE > 60.0 (>42); GLUCOSE, FASTING 156 MG/DL (83-110); MAGNESIUM LEVEL 2.2 MG/DL (1.8-2.4); POTASSIUM SERUM 3.5 MEQ/L (3.5-5.1); SODIUM LEVEL 137 MEQ/L (136-145)
[2017-05-25 07:16] LABS: BLOOD UREA NITROGEN 39 MG/DL (7-18)
[2017-05-25 07:24] LABS: NEUTROPHILS % 93.6 % (36.0-66.0)
[2017-05-25] MEDS ORDERED: ASPIRIN 81 MG CHEW TABLET PEG SCH (09:00)
[2017-05-25] MEDS: DIGOXIN 0.125 MG TAB PEG SCH (10:09)
[2017-05-25] MEDS: BISOPROLOL FUMARATE 10 MG TAB PEG SCH ×2 (10:10→21:03)
[2017-05-25] MEDS: LOSARTAN 25 MG TAB PEG SCH (10:11)
[2017-05-25] MEDS: NS 1,000 ML IV SCH (15:37)
--- NOTE | 2017-05-25 15:41 | IPNPDOC ---
Date Seen The patient was seen on 05/25/17. Progress Note Hospitalist Progress Note Subjective: Patient states that his breathing is better Objective: Physical Exam: Vitals: Vital Sign - Last 24 Hours 05/24/17 05/24/17 05/24/17 05/24/17 18:20 18:20 18:21 19:59 Pulse 100 100 B/P (MAP) 132/68 132/68 O2 Delivery Nasal Cannula O2 Flow Rate 2.0 05/24/17 05/24/17 05/25/17 05/25/17 20:00 23:38 04:00 04:33 Temp 98.0 98.3 98.1 Pulse 105 102 113 140 Resp 18 18 20 B/P (MAP) 140/77 (98) 116/56 (76) 160/90 (113) 156/74 (101) Pulse Ox 93 92 92 O2 Delivery Nasal Cannula Nasal Cannula Nasal Cannula O2 Flow Rate 2.0 2.0 2.0 05/25/17 05/25/17 05/25/17 05/25/17 05:01 05:07 05:09 05:11 Pulse 139 118 B/P (MAP) 130/70 124/70 (88) 116/68 (84) 112/70 (84) 05/25/17 05/25/17 05/25/17 05/25/17 05:54 08:00 10:09 10:10 Temp 98.1 Pulse 115 103 103 103 Resp 18 B/P (MAP) 118/72 (87) 123/64 (83) 123/64 Pulse Ox 92 90 O2 Delivery Nasal Cannula Nasal Cannula O2 Flow Rate 2.0 2.0 05/25/17 05/25/17 10:11 12:00 Temp 98.0 Pulse 96 Resp 18 B/P (MAP) 123/64 125/68 (87) Pulse Ox 92 O2 Delivery Nasal Cannula O2 Flow Rate 2.0 General: Awake, alert, no acute distress HEENT: Normocephalic, atraumatic, extraocular movements intact CV: Irregularly irregular Lungs: Scattered rhonchi but moving good air Abd: Soft, nontender, nondistended Extremities: No edema Neuro: Alert and oriented 3, hoarse voice Psych: Normal mood and affect Labs and Imaging: Laboratory Tests 05/25/17 06:12 Red Blood Count 4.33, Mean Corpuscular Volume 96.5 H, Mean Corpuscular Hemoglobin 33.5 H, Mean Corpuscular Hemoglobin Concent 34.7, Red Cell Distribution Width 13.5, Neutrophils (%) (Auto) 93.6 H, Lymphocytes (%) (Auto) 2.9 L, Monocytes (%) (Auto) 2.1, Eosinophils (%) (Auto) 0.0, Basophils (%) (Auto ) 0.1, Neutrophils # (Auto) 27.9 H, Lymphocytes # (Auto) 0.9 L, Monocytes # ( Auto) 0.6, Eosinophils # (Auto) 0.0, Basophils # (Auto) 0.0, Calcium Level 9.1 Assessment and Plan: 77-year-old male with hypertension, hyperlipidemia, history of CVA 2, atrial fibrillation, head and neck cancer status post surgical excision as well as chemotherapy and radiation, chronic dysphagnpoia secondary to cancer treatment with PEG tube feeds who presented to the emergency department with cough and associated chest pain. He is admitted with concern for aspiration pneumonia. Overnight, there was concern for coffee grounds coming out of his PEG. 1. Chest pain: I suspect this is secondary to his cough as it only occurs when he coughs. Initial EKG does not show acute infarct or ischemia and serial troponins are negative. 2. Aspiration pneumonia: The patient is afebrile, but he has a significantly elevated white count of 29.9. Although his chest imaging is currently negative for acute findings, I suspect that when he vomited the night prior to and the morning of admission, he potentially aspirated, and it is simply too soon for us to be able to see any changes on his chest imaging. At this time, we are presumptively treating him for aspiration pneumonia with Unasyn. We will follow up a sputum culture and follow up his blood cultures. He is nothing by mouth. He also is not evidently on any PPIs chronically, so we started a PPI, as well as some Reglan. Given his significantly elevated white count, and no definitive source of infection at this time, we checked a UA, which was unremarkable for infection. We will get a manual diff with his CBC tomorrow. 3. Elevated proBNP: At this time, the patient clinically does not appear volume overloaded, and his chest imaging does not show evidence of overload. He did receive 1 dose of Lasix in the emergency department. At this time, we will hold off on any further Lasix, but we will follow up an echocardiogram. We'll also follow I's and O's and daily weights. 4. Chronic atrial fibrillation: Patient became tachycardic overnight and required one dose of IV metoprolol. We will monitor him on telemetry and continue his home digoxin. His home beta flores has been doubled from 10mg daily to 10mg BID. Home eliquis is on hold given possible GI bleed. 5. Hypertension: Continue home beta flores and ARB. 6. History of CVA 2, hyperlipidemia: Continue home statin and blood pressure control. Home ASA is on hold given possible GI bleed. 7. Chronic dysphagia: Given possible GI bleed, currently holding home tube feeds ; Per the patient, he uses Jevity 1.5 one can 5 times a day. He is unsure of how much free water flush he does after each feed, but a prior dietary note mentions that he should do 100 mL, which we will continue here. 8. Possible reactive airway: In the emergency department, they initially thought the patient had COPD, and even gave him steroids as they felt he was wheezing. The patient states he has never been diagnosed with COPD. Although he may have some component of reactive airway, I suspect that this is secondary to his chronic dysphagia and likely GERD, which is causing him to cough. We will continue with some steroids, but we are weaning them quickly. The patient will also have breathing treatments as needed. 9. Coffee grounds from PEG: Patient and nursing report that last night there was a discharge from his PEG looked like coffee grounds. At that time, his tube feeds were stopped, and he was started on an PPI drip. We attempted to collect some of this to send for occult blood, but the staff was unable to obtain any. We are still attempting to obtain some today. In the meantime, the patient will be on IV fluids and we are holding his home aspirin and eliquis. His hemoglobin was 15.6 yesterday, it is 14.5 today. He has had no further discharge like this. We will follow-up his hemoglobin tomorrow morning, and if there is no further concern for GI bleed, then we will resume his home feeds and home meds. DVT prophylaxis: SCDs Dispo: pending potential GI bleed, as well as adequate treatment of aspiration pneumonia and improvement in leukocytosis VS, I&O, [facility] Vital Signs/I&O Vital Signs Date Time Temp Pulse Resp B/P (MAP) Pulse Ox O2 Delivery O2 Flow Rate FiO2 05/25/17 12:00 98.0 96 18 125/68 (87) 92 Nasal Cannula 2.0 I&O- Last 24 Hours up to 6 AM 05/26/17 06:00 Intake Total 260 ml Output Total 0 ml Balance 260 ml Laboratory Data 24H LABS Laboratory Tests 2 05/24/17 15:59: Total Creatine Kinase 197, Creatine Kinase MB 4.5H, Creatine Kinase MB Relative Index 2.28, Troponin I 0.06# 05/25/17 00:16: Total Creatine Kinase 307, Creatine Kinase MB 6.9H, Creatine Kinase MB Relative Index 2.24, Troponin I 0.06 05/25/17 04:17: Bedside Glucose (Misc Panel) 138H 05/25/17 06:12: Immature Granulocyte % (Auto) 1.3H, White Blood Count 29.9H, Red Blood Count 4.33, Hemoglobin 14.5, Hematocrit 41.8L, Mean Corpuscular Volume 96.5H, Mean Corpuscular Hemoglobin 33.5H, Mean Corpuscular Hemoglobin Concent 34.7, Red Cell Distribution Width 13.5, Platelet Count 214, Neutrophils (%) (Auto) 93.6H, Lymphocytes (%) (Auto) 2.9L, Monocytes (%) (Auto) 2.1, Eosinophils (%) (Auto) 0.0, Basophils (%) (Auto) 0.1, Neutrophils # (Auto) 27.9H, Lymphocytes # (Auto) 0.9L, Monocytes # (Auto) 0.6, Eosinophils # (Auto) 0.0, Basophils # (Auto) 0.0, Immature Granulocyte # (Auto) 0.4H, Nucleated Red Blood Cells % (auto) 0.0, Anion Gap 7L, Glomerular Filtration Rate > 60.0, Blood Urea Nitrogen 39#H, Creatinine 0.98, Sodium Level 137, Potassium Level 3.5, Chloride Level 103, Carbon Dioxide Level 27, Calcium Level 9.1, Magnesium Level 2.2 05/25/17 08:02: Total Creatine Kinase 332H, Creatine Kinase MB 9.2H, Creatine Kinase MB Relative Index 2.77, Troponin I 0.06 CBC/BMP Laboratory Tests 05/25/17 06:12 Red Blood Count 4.33, Mean Corpuscular Volume 96.5 H, Mean Corpuscular Hemoglobin 33.5 H, Mean Corpuscular Hemoglobin Concent 34.7, Red Cell Distribution Width 13.5, Neutrophils (%) (Auto) 93.6 H, Lymphocytes (%) (Auto) 2.9 L, Monocytes (%) (Auto) 2.1, Eosinophils (%) (Auto) 0.0, Basophils (%) (Auto ) 0.1, Neutrophils # (Auto) 27.9 H, Lymphocytes # (Auto) 0.9 L, Monocytes # ( Auto) 0.6, Eosinophils # (Auto) 0.0, Basophils # (Auto) 0.0, Calcium Level 9.1 Microbiology Microbiology 05/24/17 Blood Culture - Preliminary, Resulted No growth after 24 hours . All specim... 05/24/17 Blood Culture - Preliminary, Resulted No growth after 24 hours . All specim... 05/24/17 Urine Culture - Final, Complete LEE HERNADEZ May 25, 2017 15:41
[2017-05-25] MEDS: ATORVASTATIN 20 MG TAB PEG SCH (21:00)
[2017-05-26] VITALS: BP_SYST 158; BP_SYST 172; BP_DIAS 74; BP_DIAS 99
[2017-05-26] MEDS: NS 1,000 ML IV SCH (00:45)
[2017-05-26] MEDS: METOCLOPRAMIDE HCL LIQUID 10 MG/10 ML UDC PEG SCH ×5 (01:05→23:35)
[2017-05-26] MEDS: AMPICILLIN SOD/SULBACTAM SOD 1.5 GM in D5W 50 ML IV SCH ×5 (01:06→23:36)
[2017-05-26] MEDS: PANTOPRAZOLE SODIUM 40 MG in D5W 50 ML IV SCH ×4 (01:06→12:12)
[2017-05-26 04:00] VITALS: BP 141/92
[2017-05-26 06:03] LABS: MEAN CORPUSCULAR HEMOGLOBIN 33.2 pg (27.0-33.0); MEAN CORPUSCULAR HGB CONC 34.1 g/dl (32.0-36.5); MEAN CORPUSCULAR VOLUME 97.2 fl (80.0-96.0); RED CELL DISTRIBUTION WIDTH 13.5 % (11.5-14.5); WHITE BLOOD COUNT 29.3 10^3/uL (4.0-10.0)
[2017-05-26 06:26] LABS: ANION GAP 7 MEQ/L (8-16); BLOOD UREA NITROGEN 30 MG/DL (7-18); CALCIUM LEVEL 8.6 MG/DL (8.8-10.2); CARBON DIOXIDE LEVEL 26 MEQ/L (21-32); CHLORIDE LEVEL 108 MEQ/L (98-107); CREATININE FOR GFR 0.68 MG/DL (0.70-1.30); GLOMERULAR FILTRATION RATE > 60.0 (>42); GLUCOSE, FASTING 125 MG/DL (83-110); MAGNESIUM LEVEL 2.5 MG/DL (1.8-2.4); POTASSIUM SERUM 3.9 MEQ/L (3.5-5.1); SODIUM LEVEL 141 MEQ/L (136-145)
[2017-05-26 07:59] LABS: BANDS 1 % (< 11)
[2017-05-26 08:00] VITALS: BP 158/79
[2017-05-26 08:00] LABS: ANISOCYTOSIS 1+
[2017-05-26] MEDS: BISOPROLOL FUMARATE 10 MG TAB PEG SCH ×2 (09:03→21:45)
[2017-05-26] MEDS: DIGOXIN 0.125 MG TAB PEG SCH (09:03)
[2017-05-26] MEDS: methylPREDNISolone INJ 40 MG/1 ML VIAL (J2920) IV SCH (09:04)
[2017-05-26] MEDS: LOSARTAN 25 MG TAB PEG SCH (09:04)
[2017-05-26 12:00] VITALS: BP 145/92
[2017-05-26 13:19] LABS: REASON FOR REVIEW COMPREHENSIVE REVIEW
--- NOTE | 2017-05-26 13:46 | REP ---
CT NECK WITHOUT CONTRAST: HISTORY: Hoarseness. The naso-, shayan-, and hypopharynx, larynx and subglottic trachea are normal in appearance. The salivary glands are normal in size and density. The thyroid gland is atrophic. The thyroid gland is normal in density. Small lymph nodes less than 1 cm in size are present in the internal jugular chains, posterior triangles, and submandibular areas. Atherosclerotic calcification is present at the carotid bifurcations. Surgical clips are present in the left carotid space and lateral to the right thyroid lobe. Degenerative change is present in the cervical spine. The lung apices are clear. The visualized sinuses are clear. IMPRESSION: There is no neck mass or adenopathy. Signed by Roscoe Puente MD 05/26/2017 01:50 P
[2017-05-26 16:00] VITALS: BP 136/72
--- NOTE | 2017-05-26 16:16 | IPNPDOC ---
Date Seen The patient was seen on 05/26/17. Progress Note Hospitalist Progress Note Subjective: Patient states that his breathing is better; neither he nor nursing has seen any coffee grounds from his PEG Objective: Physical Exam: Vitals: Vital Sign - Last 24 Hours 05/25/17 05/25/17 05/25/17 05/26/17 20:00 20:00 21:03 00:00 Temp 97.8 97.6 Pulse 93 80 106 Resp 18 18 B/P (MAP) 143/96 (112) 143/96 158/99 (118) Pulse Ox 98 93 O2 Delivery Nasal Cannula Room Air Nasal Cannula O2 Flow Rate 2.0 2.0 05/26/17 05/26/17 05/26/17 05/26/17 00:00 03:54 04:00 08:00 Temp 97.7 97.7 Pulse 77 101 Resp 18 18 B/P (MAP) 141/92 (108) 158/79 (105) Pulse Ox 93 96 O2 Delivery Room Air Room Air Nasal Cannula Nasal Cannula O2 Flow Rate 2.0 05/26/17 05/26/17 05/26/17 05/26/17 09:03 09:03 09:04 09:05 Pulse 101 101 B/P (MAP) 158/79 158/79 O2 Delivery Room Air 05/26/17 12:00 Temp 98.7 Pulse 71 Resp 18 B/P (MAP) 145/92 (109) Pulse Ox 96 O2 Delivery Nasal Cannula O2 Flow Rate 2.0 General: Awake, alert, no acute distress HEENT: Normocephalic, atraumatic, extraocular movements intact CV: Irregularly irregular Lungs: Scattered rhonchi but moving good air Abd: Soft, nontender, nondistended Extremities: No edema Neuro: Alert and oriented 3, hoarse voice Psych: Normal mood and affect Labs and Imaging: Laboratory Tests 05/26/17 05:47 Calcium Level 8.6 L Assessment and Plan: 77-year-old male with hypertension, hyperlipidemia, history of CVA 2, atrial fibrillation, head and neck cancer status post surgical excision as well as chemotherapy and radiation, chronic dysphagnpoia secondary to cancer treatment with PEG tube feeds who presented to the emergency department with cough and associated chest pain. He is admitted with concern for aspiration pneumonia. On HD#1, there was concern for coffee grounds coming out of his PEG. 1. Chest pain: I suspect this is secondary to his cough as it only occurs when he coughs. Initial EKG does not show acute infarct or ischemia and serial troponins are negative. 2. Aspiration pneumonia: The patient is afebrile, but he has a significantly elevated white count of 29.9. Although his initial chest imaging was negative for acute findings, I suspect that when he vomited the night prior to and the morning of admission, he potentially aspirated, and it was simply too soon for us to be able to see any changes on his chest imaging. At this time, we are presumptively treating him for aspiration pneumonia with Unasyn. Sputum culture was of poor quality, and blood cultures are negative. He is nothing by mouth. He also is not evidently on any PPIs chronically, so we started a PPI, as well as some Reglan. Given his significantly elevated white count, and no definitive source of infection at this time, we checked a UA and Ucx, which was unremarkable for infection. 3. Elevated proBNP: At this time, the patient clinically does not appear volume overloaded, and his chest imaging does not show evidence of overload. He did receive 1 dose of Lasix in the emergency department. At this time, we will hold off on any further Lasix, but we will follow up an echocardiogram. We'll also follow I's and O's and daily weights. 4. Chronic atrial fibrillation: On HD#1, Patient became tachycardic overnight and required one dose of IV metoprolol. We will monitor him on telemetry and continue his home digoxin. His home beta flores has been doubled from 10mg daily to 10mg BID and rate seems better controlled. Restart home eliquis. 5. Hypertension: Continue home beta flores and ARB. 6. History of CVA 2, hyperlipidemia: Continue home statin and blood pressure control. Restart home ASA. 7. Chronic dysphagia: Resume home tube feeds; Per the patient, he uses Jevity 1.5 one can 5 times a day. He is unsure of how much free water flush he does after each feed, but a prior dietary note mentions that he should do 100 mL, which we will continue here. 8. Possible reactive airway: In the emergency department, they initially thought the patient had COPD, and even gave him steroids as they felt he was wheezing. The patient states he has never been diagnosed with COPD. Although he may have some component of reactive airway, I suspect that this is secondary to his chronic dysphagia and likely GERD, which is causing him to cough. His lungs are sounding much better, so we will stop steroids today. The patient will also have breathing treatments as needed. 9. Coffee grounds from PEG: Patient and nursing reported on HD #1 that there was a discharge from his PEG looked like coffee grounds. At that time, his tube feeds were stopped, and he was started on an PPI drip. We attempted to collect some of this to send for occult blood, but the staff was unable to obtain any, and it has not happened again in the subsequent 36H. His Hgb has been stable. At this time, we will resume his home TFs, as well as home eliquis and ASA. We will stop the IVF and PPI drip. 10. Leukocytosis: WBC remains persistently at 29. We will get a peripheral smear. Given his history of cancer, and his lack of clear infection here, with persistent leukocytosis despite tx from aspiration PNA, we will reimage his neck and ask ENT to perform laryngoscope. CT chest was not concerning for new or metastatic malignancy. Patient also reports that his hoarseness has been worsening; TRAIN BRAKE OPERATOR to work with him on his voice. DVT prophylaxis: SCDs and eliquis Dispo: pending work up by ENT and improvement in leukocytosis VS, I&O, 24H, [facility] Vital Signs/I&O Vital Signs Date Time Temp Pulse Resp B/P (MAP) Pulse Ox O2 Delivery O2 Flow Rate FiO2 05/26/17 12:00 98.7 71 18 145/92 (109) 96 Nasal Cannula 2.0 I&O- Last 24 Hours up to 6 AM 05/27/17 06:00 Intake Total 410 ml Output Total 275 ml Balance 135 ml Laboratory Data 24H LABS Laboratory Tests 2 05/26/17 05:47: Neutrophils 90H, Band Neutrophils 1, Lymphocytes (Manual) 6L, Monocytes (Manual ) 3, Platelet Estimate NORMAL, Anisocytosis 1+, Anion Gap 7L, Glomerular Filtration Rate > 60.0, Blood Urea Nitrogen 30H, Creatinine 0.68L, Sodium Level 141, Potassium Level 3.9, Chloride Level 108H, Carbon Dioxide Level 26, Calcium Level 8.6L, Magnesium Level 2.5H 05/26/17 12:49: Differential Slide Review Report, Differential Pathologist's Review COMPREHENSIVE REVIEW, Peripheral Blood Smear Path Consult PERIPHERAL SMEAR CBC/BMP Laboratory Tests 05/26/17 05:47 Calcium Level 8.6 L Microbiology Microbiology 05/24/17 Blood Culture - Preliminary, Resulted No Growth after 48 hours. All Specime... 05/24/17 Blood Culture - Preliminary, Resulted No Growth after 48 hours. All Specime... 05/25/17 Gram Stain - Final, Complete 05/25/17 Sputum Culture - Final, Complete 05/24/17 Urine Culture - Final, Complete LEE HERNADEZ May 26, 2017 16:16
[2017-05-26 21:00] VITALS: BP 180/100
[2017-05-26] MEDS: APIXABAN 5 MG TAB (ELIQUIS) PO SCH (21:00)
[2017-05-26] MEDS: ATORVASTATIN 20 MG TAB PEG SCH (21:39)
[2017-05-26] MEDS: LANSOPRAZOLE SUSPENSION 30 MG/10 ML ORAL SYRINGE (FIRST-LANSOPRAZOLE) PEG SCH (21:39)
--- NOTE | 2017-05-26 23:16 | ECHO ---
DATE OF PROCEDURE: 05/26/2017 AGE: 77 GENDER: Male HEIGHT: 66 inches WEIGHT: 132 pounds BODY SURFACE AREA: 1.68 m2 PATIENT LOCATION: Inpatient, PCU, room 3226 REFERRING PHYSICIAN: Dr. Veronique Vasquez INDICATION: Heart failure. 2D MEASUREMENTS: RV: 4.4 cm LV: 4.8 cm Septum: 1.2 cm Posterior wall: 1.2 cm Aortic root: 2.9 cm LA: 4.7 cm LVEF: 75% DOPPLER MEASUREMENTS: AV: 1.6 m/s LVOT: 0.75 m/s LVOT diameter: 2.1 cm MV-E: 85 Early mitral deceleration time: 132 ms E prime: 10.6, E/E prime ratio: 8 PV: 0.8 m/s Pulmonary artery acceleration time: 88 ms RSVP: 41 mmHg IVC: 1.8 cm COMMENTS: Underlying atrial fibrillation with controlled ventricular response. No intraventricular conduction disturbance. Moderately prominently dilated left atrium, but normal left ventricular size. At least mildly dilated right ventricle and moderately dilated right atrium. Left ventricle (LV) wall thickness was borderline increased symmetrically. On real-time imaging from the parasternal and apical projections left ventricular wall motion was symmetrical and hyperkinetic. Right ventricular free wall motion appeared to be normal. Mild thickening of the mitral annulus, but normal leaflet thickness and excursion with no posterior systolic buckling. Three equal size aortic cusps with asymmetrically thickened and slight reduction of noncoronary cusp motion, but the other two cusps move normally. Normal aortic root size. No apparent intracardiac mass. Minuscule posterior pericardial effusion. Color flow Doppler study taken from the parasternal and apical projections showed mild mitral, moderate tricuspid, but no aortic insufficiency. Guided continuous wave Doppler of his aortic valve showed a normal peak systolic velocity against significant LV outflow tract obstruction. Pulsed and continuous wave Doppler of his LV inflow tract taken from the apical four-chamber projection showed normal diastolic filling velocities against mitral stenosis. There was only early diastolic/passive filling as we would expect with atrial fibrillation. Using pulsed and tissue Doppler of his mitral annulus his current estimated mean left atrial pressure was within normal limits at 10 mmHg. Pulsed and continuous wave Doppler of his pulmonary trunk showed a normal peak systolic velocity against RV outflow tract obstruction. His pulmonary artery acceleration time was abbreviated consistent with an elevated pulmonary vascular resistance. Guided continuous wave Doppler of his tricuspid valve allowed our estimation of his right ventricular systolic pressure (moderately increased). His inferior vena cava was of normal size with normal respiratory collapse against an elevated central venous pressure at this time. CONCLUSIONS: Borderline left ventricle hypertrophy with hyperkinetic wall motion. Moderately dilated left atrium with current estimated mean left atrial pressure within normal limits. At least mildly dilated right ventricle with preserved systolic function yet Doppler evidence of at least moderate pulmonary hypertension. Moderately dilated right atrium, but normal IVC size and collapse against an elevated central venous pressure at this time. Asymmetrical aortic valvular sclerosis without stenosis or insufficiency. Mild mitral annular calcification with mild insufficiency.
[2017-05-27] VITALS (7 sets, daily range): BP systolic 148–176; BP diastolic 52–95
[2017-05-27] MEDS: METOCLOPRAMIDE HCL LIQUID 10 MG/10 ML UDC PEG SCH ×4 (06:04→23:41)
[2017-05-27] MEDS: AMPICILLIN SOD/SULBACTAM SOD 1.5 GM in D5W 50 ML IV SCH ×4 (06:04→23:42)
[2017-05-27 06:06] LABS: BASO % 0.1 % (0.0-1.0); IMMATURE GRANULOCYTE % 0.7 % (0-0); LYMPH # 0.9 10^3/uL (1.5-4.5); LYMPH % 3.8 % (24.0-44.0); MEAN CORPUSCULAR HGB CONC 33.9 g/dl (32.0-36.5); MEAN CORPUSCULAR VOLUME 97.4 fl (80.0-96.0); MONO # 1.5 10^3/uL (0.0-0.8); MONO % 6.5 % (0.0-5.0); NEUTROPHILS # 20.6 10^3/uL (1.8-7.7); NEUTROPHILS % 88.9 % (36.0-66.0); PLATELET COUNT, AUTOMATED 224 10^3/uL (150-450); RED CELL DISTRIBUTION WIDTH 13.4 % (11.5-14.5); WHITE BLOOD COUNT 23.2 10^3/uL (4.0-10.0)
[2017-05-27 06:12] LABS: ANION GAP 5 MEQ/L (8-16); BLOOD UREA NITROGEN 28 MG/DL (7-18); CALCIUM LEVEL 8.3 MG/DL (8.8-10.2); CARBON DIOXIDE LEVEL 28 MEQ/L (21-32); CHLORIDE LEVEL 110 MEQ/L (98-107); CREATININE FOR GFR 0.62 MG/DL (0.70-1.30); GLOMERULAR FILTRATION RATE > 60.0 (>42); GLUCOSE, FASTING 118 MG/DL (83-110); MAGNESIUM LEVEL 2.4 MG/DL (1.8-2.4); POTASSIUM SERUM 3.9 MEQ/L (3.5-5.1); SODIUM LEVEL 143 MEQ/L (136-145)
[2017-05-27] MEDS: DIGOXIN 0.125 MG TAB PEG SCH (09:21)
[2017-05-27] MEDS: APIXABAN 5 MG TAB (ELIQUIS) PO SCH ×2 (09:21→21:45)
[2017-05-27] MEDS: LOSARTAN 25 MG TAB PEG SCH (09:21)
[2017-05-27] MEDS: LANSOPRAZOLE SUSPENSION 30 MG/10 ML ORAL SYRINGE (FIRST-LANSOPRAZOLE) PEG SCH ×2 (09:22→21:45)
[2017-05-27] MEDS: ASPIRIN 81 MG ENTERIC TAB PO SCH (09:22)
[2017-05-27] MEDS: BISOPROLOL FUMARATE 10 MG TAB PEG SCH ×2 (09:22→21:45)
--- NOTE | 2017-05-27 15:31 | IPNPDOC ---
Date Seen The patient was seen on 05/27/17. Progress Note Hospitalist Progress Note Subjective: Patient overall feels well; no concern for coffee grounds from his PEG but he did start having diarrhea this AM Objective: Physical Exam: Vitals: Vital Sign - Last 24 Hours 05/26/17 05/26/17 05/26/17 05/26/17 16:00 20:00 20:00 21:00 Temp 98.7 99.1 Pulse 94 125 Resp 18 20 B/P (MAP) 136/72 (93) 180/100 (126) Pulse Ox 91 95 O2 Delivery Nasal Cannula Room Air Nasal Cannula O2 Flow Rate 2.0 2.0 05/26/17 05/27/17 05/27/17 05/27/17 21:45 00:00 00:05 00:30 Temp 98.5 Pulse 85 82 Resp 20 B/P (MAP) 180/100 153/64 (93) 155/95 (115) Pulse Ox 91 O2 Delivery Room Air Room Air 05/27/17 05/27/17 05/27/17 05/27/17 04:00 04:00 08:00 09:00 Temp 97.7 98.7 Pulse 82 79 Resp 18 18 B/P (MAP) 163/88 (113) 176/89 (118) Pulse Ox 97 95 O2 Delivery Room Air Room Air Room Air Room Air 05/27/17 05/27/17 05/27/17 05/27/17 09:21 09:21 09:22 12:00 Temp 96.8 Pulse 98 98 75 Resp 18 B/P (MAP) 180/80 180/80 168/52 (90) Pulse Ox 96 O2 Delivery Room Air 05/27/17 12:41 O2 Delivery Room Air General: Awake, alert, no acute distress HEENT: Normocephalic, atraumatic, extraocular movements intact CV: Irregularly irregular Lungs: Scattered rhonchi but moving good air Abd: Soft, nontender, nondistended Extremities: No edema Neuro: Alert and oriented 3, hoarse voice Psych: Normal mood and affect Labs and Imaging: Laboratory Tests 05/27/17 05:21 Red Blood Count 4.55, Mean Corpuscular Volume 97.4 H, Mean Corpuscular Hemoglobin 33.0, Mean Corpuscular Hemoglobin Concent 33.9, Red Cell Distribution Width 13.4, Neutrophils (%) (Auto) 88.9 H, Lymphocytes (%) (Auto) 3.8 L, Monocytes (%) (Auto) 6.5 H, Eosinophils (%) (Auto) 0.0, Basophils (%) ( Auto) 0.1, Neutrophils # (Auto) 20.6 H, Lymphocytes # (Auto) 0.9 L, Monocytes # (Auto) 1.5 H, Eosinophils # (Auto) 0.0, Basophils # (Auto) 0.0, Calcium Level 8.3 L Assessment and Plan: 77-year-old male with hypertension, hyperlipidemia, history of CVA 2, atrial fibrillation, head and neck cancer status post surgical excision as well as chemotherapy and radiation, chronic dysphagnpoia secondary to cancer treatment with PEG tube feeds who presented to the emergency department with cough and associated chest pain. He is admitted with concern for aspiration pneumonia. On HD#1, there was concern for coffee grounds coming out of his PEG. 1. Chest pain: I suspect this is secondary to his cough as it only occurs when he coughs. Initial EKG does not show acute infarct or ischemia and serial troponins are negative. 2. Aspiration pneumonia: The patient is afebrile, but he has a significantly elevated white count of 29.9. Although his initial chest imaging was negative for acute findings, I suspect that when he vomited the night prior to and the morning of admission, he potentially aspirated, and it was simply too soon for us to be able to see any changes on his chest imaging. At this time, we are presumptively treating him for aspiration pneumonia with Unasyn. Sputum culture was of poor quality, and blood cultures are negative. He is nothing by mouth. He also is not evidently on any PPIs chronically, so we started a PPI, as well as some Reglan. Given his significantly elevated white count, and no definitive source of infection at this time, we checked a UA and Ucx, which was unremarkable for infection. His WBC today is somewhat improved, which is encouraging. If ENT does not find evidence of cancer recurrence, we will reimage his chest. 3. Elevated proBNP: At this time, the patient clinically does not appear volume overloaded, and his chest imaging does not show evidence of overload. He did receive 1 dose of Lasix in the emergency department. At this time, we will hold off on any further Lasix. We'll also follow I's and O's and daily weights. Echocardiogram shows mod pHTN, but no evidence of systolic or diastolic failure. 4. Chronic atrial fibrillation: On HD#1, Patient became tachycardic overnight and required one dose of IV metoprolol. We will monitor him on telemetry and continue his home digoxin. His home beta flores has been doubled from 10mg daily to 10mg BID and rate seems better controlled. Continue home eliquis. 5. Hypertension: Continue home beta flores and ARB. 6. History of CVA 2, hyperlipidemia: Continue home statin, ASA, and blood pressure control. 7. Chronic dysphagia: Continue home tube feeds; Per the patient, he uses Jevity 1.5 one can 5 times a day. He is unsure of how much free water flush he does after each feed, but a prior dietary note mentions that he should do 100 mL, which we will continue here. 8. Possible reactive airway: In the emergency department, they initially thought the patient had COPD, and even gave him steroids as they felt he was wheezing. The patient states he has never been diagnosed with COPD. Although he may have some component of reactive airway, I suspect that this is secondary to his chronic dysphagia and likely GERD, which is causing him to cough. As his lungs were much improved, I stopped steroids on /12. The patient will also have breathing treatments as needed. 9. Coffee grounds from PEG: Patient and nursing reported on HD #1 that there was a discharge from his PEG looked like coffee grounds. At that time, his tube feeds were stopped, and he was started on an PPI drip. We attempted to collect some of this to send for occult blood, but the staff was unable to obtain any, and it has not happened again. His Hgb has been stable. At this time, we have resumed his home TFs, as well as home eliquis and ASA. 10. Leukocytosis: WBC is slightly improved at 23 today. Peripheral smear was most consistent with a reactive process. Given his history of cancer, and his lack of clear infection here, with persistent leukocytosis despite tx from aspiration PNA, we reimaged his neck, which showed no mass or LAD, and have asked ENT to perform laryngoscope. CT chest was not concerning for new or metastatic malignancy. Patient also reports that his hoarseness has been worsening; CUT OFF OPERATOR SCORER to work with him on his voice. 11. Diarrhea: Check GI panel. DVT prophylaxis: SCDs and eliquis Dispo: pending work up by ENT and improvement in leukocytosis VS, I&O, 24H, [facility] Vital Signs/I&O Vital Signs Date Time Temp Pulse Resp B/P (MAP) Pulse Ox O2 Delivery O2 Flow Rate FiO2 05/27/17 12:41 Room Air 05/27/17 12:00 96.8 75 18 168/52 (90) 96 05/26/17 20:00 2.0 Laboratory Data 24H LABS Laboratory Tests 2 05/27/17 05:21: Immature Granulocyte % (Auto) 0.7H, White Blood Count 23.2H, Red Blood Count 4.55, Hemoglobin 15.0, Hematocrit 44.3, Mean Corpuscular Volume 97.4H, Mean Corpuscular Hemoglobin 33.0, Mean Corpuscular Hemoglobin Concent 33.9, Red Cell Distribution Width 13.4, Platelet Count 224, Neutrophils (%) (Auto) 88.9H, Lymphocytes (%) (Auto) 3.8L, Monocytes (%) (Auto) 6.5H, Eosinophils (%) (Auto) 0.0, Basophils (%) (Auto) 0.1, Neutrophils # (Auto) 20.6H, Lymphocytes # (Auto) 0.9L, Monocytes # (Auto) 1.5H, Eosinophils # (Auto) 0.0, Basophils # (Auto) 0.0 , Immature Granulocyte # (Auto) 0.2H, Nucleated Red Blood Cells % (auto) 0.0, Anion Gap 5L, Glomerular Filtration Rate > 60.0, Blood Urea Nitrogen 28H, Creatinine 0.62L, Sodium Level 143, Potassium Level 3.9, Chloride Level 110H, Carbon Dioxide Level 28, Calcium Level 8.3L, Magnesium Level 2.4 CBC/BMP Laboratory Tests 05/27/17 05:21 Red Blood Count 4.55, Mean Corpuscular Volume 97.4 H, Mean Corpuscular Hemoglobin 33.0, Mean Corpuscular Hemoglobin Concent 33.9, Red Cell Distribution Width 13.4, Neutrophils (%) (Auto) 88.9 H, Lymphocytes (%) (Auto) 3.8 L, Monocytes (%) (Auto) 6.5 H, Eosinophils (%) (Auto) 0.0, Basophils (%) ( Auto) 0.1, Neutrophils # (Auto) 20.6 H, Lymphocytes # (Auto) 0.9 L, Monocytes # (Auto) 1.5 H, Eosinophils # (Auto) 0.0, Basophils # (Auto) 0.0, Calcium Level 8.3 L Microbiology Microbiology 05/24/17 Blood Culture - Preliminary, Resulted No Growth after 72 hours. All specime... 05/24/17 Blood Culture - Preliminary, Resulted No Growth after 72 hours. All specime... 05/25/17 Gram Stain - Final, Complete 05/25/17 Sputum Culture - Final, Complete 05/24/17 Urine Culture - Final, Complete LEE HERNADEZ May 27, 2017 15:31
[2017-05-27] MEDS: IPRATROPIUM 0.5MG/ALBUTEROL 2.5MG INH SOL UD 3ML (DUONEB)(J7620) NEB PRN (21:45)
[2017-05-27] MEDS: ATORVASTATIN 20 MG TAB PEG SCH (21:45)
[2017-05-28] VITALS: BP 156/72
[2017-05-28 04:00] VITALS: BP 158/85
[2017-05-28 04:44] LABS: MEAN CORPUSCULAR HEMOGLOBIN 33.4 pg (27.0-33.0); MEAN CORPUSCULAR HGB CONC 34.1 g/dl (32.0-36.5); MEAN CORPUSCULAR VOLUME 97.9 fl (80.0-96.0); PLATELET COUNT, AUTOMATED 224 10^3/uL (150-450); RED CELL DISTRIBUTION WIDTH 13.3 % (11.5-14.5)
[2017-05-28 04:45] LABS: ADD MANUAL DIFFER YES; DIFF SLIDE NUMBER 28
[2017-05-28 05:02] LABS: ANION GAP 8 MEQ/L (8-16); BLOOD UREA NITROGEN 20 MG/DL (7-18); CALCIUM LEVEL 8.3 MG/DL (8.8-10.2); CARBON DIOXIDE LEVEL 28 MEQ/L (21-32); CHLORIDE LEVEL 106 MEQ/L (98-107); CREATININE FOR GFR 0.65 MG/DL (0.70-1.30); GLOMERULAR FILTRATION RATE > 60.0 (>42); GLUCOSE, FASTING 105 MG/DL (83-110); MAGNESIUM LEVEL 2.3 MG/DL (1.8-2.4); POTASSIUM SERUM 3.6 MEQ/L (3.5-5.1); SODIUM LEVEL 142 MEQ/L (136-145)
[2017-05-28] MEDS: AMPICILLIN SOD/SULBACTAM SOD 1.5 GM in D5W 50 ML IV SCH (05:52)
[2017-05-28] MEDS: METOCLOPRAMIDE HCL LIQUID 10 MG/10 ML UDC PEG SCH ×5 (05:52→23:55)
[2017-05-28 07:44] VITALS: BP 126/81
[2017-05-28] MEDS: BISOPROLOL FUMARATE 10 MG TAB PEG SCH ×2 (08:38→20:59)
[2017-05-28] MEDS: DIGOXIN 0.125 MG TAB PEG SCH (08:38)
[2017-05-28] MEDS: LANSOPRAZOLE SUSPENSION 30 MG/10 ML ORAL SYRINGE (FIRST-LANSOPRAZOLE) PEG SCH ×2 (08:38→20:59)
[2017-05-28] MEDS: ASPIRIN 81 MG ENTERIC TAB PO SCH (08:38)
[2017-05-28] MEDS: APIXABAN 5 MG TAB (ELIQUIS) PO SCH ×2 (08:38→20:58)
[2017-05-28] MEDS: LOSARTAN 25 MG TAB PEG SCH (08:39)
[2017-05-28] MEDS: AUGMENTIN 875 MG TAB PO SCH ×2 (10:59→20:58)
[2017-05-28 12:00] VITALS: BP 127/66
--- NOTE | 2017-05-28 14:45 | IPNPDOC ---
Date Seen The patient was seen on 05/28/17. Progress Note Hospitalist Progress Note Subjective: Patient overall feels well; no concern for coffee grounds from his PEG; still having diarrhea Objective: Physical Exam: Vitals: Vital Sign - Last 24 Hours 05/27/17 05/27/17 05/27/17 05/27/17 15:30 15:56 19:44 20:00 Temp 98.7 98.7 Pulse 76 110 Resp 18 16 B/P (MAP) 158/66 (96) 148/85 (106) Pulse Ox 95 95 O2 Delivery Room Air Room Air Room Air 05/27/17 05/28/17 05/28/17 05/28/17 21:45 00:00 00:00 04:00 Temp 99.2 97.8 Pulse 110 108 71 Resp 18 19 B/P (MAP) 148/85 156/72 (100) 158/85 (109) Pulse Ox 91 91 O2 Delivery Room Air Room Air 05/28/17 05/28/17 05/28/17 05/28/17 04:00 07:44 08:00 08:38 Temp 98.1 Pulse 89 89 Resp 18 B/P (MAP) 126/81 (96) Pulse Ox 92 O2 Delivery Nasal Cannula Room Air Nasal Cannula O2 Flow Rate 1.0 1.0 05/28/17 05/28/17 08:38 12:00 Temp 98.8 Pulse 89 92 Resp 18 B/P (MAP) 126/81 127/66 (86) Pulse Ox 92 O2 Delivery Room Air General: Awake, alert, no acute distress HEENT: Normocephalic, atraumatic, extraocular movements intact CV: Irregularly irregular Lungs: Scattered rhonchi but moving good air Abd: Soft, nontender, nondistended Extremities: No edema Neuro: Alert and oriented 3, hoarse voice Psych: Normal mood and affect Labs and Imaging: Laboratory Tests 05/28/17 03:56 Red Blood Count 4.82, Mean Corpuscular Volume 97.9 H, Mean Corpuscular Hemoglobin 33.4 H, Mean Corpuscular Hemoglobin Concent 34.1, Red Cell Distribution Width 13.3, Monocytes # (Auto) , Calcium Level 8.3 L Assessment and Plan: 77-year-old male with hypertension, hyperlipidemia, history of CVA 2, atrial fibrillation, head and neck cancer status post surgical excision as well as chemotherapy and radiation, chronic dysphagia secondary to cancer treatment with PEG tube feeds who presented to the emergency department with cough and associated chest pain. He is admitted with concern for aspiration pneumonia. On HD#1, there was concern for coffee grounds coming out of his PEG. 1. Chest pain: I suspect this is secondary to his cough as it only occurs when he coughs. Initial EKG does not show acute infarct or ischemia and serial troponins are negative. 2. Aspiration pneumonia: The patient is afebrile, but he arrived with a significantly elevated white count of 29.9. Although his initial chest imaging was negative for acute findings, I suspect that when he vomited the night prior to and the morning of admission, he potentially aspirated, and it was simply too soon for us to be able to see any changes on his chest imaging. At this time , we are presumptively treating him for aspiration pneumonia with Unasyn; since WBC is trending down, we will change to PO augmentin at this time. Sputum culture was of poor quality, and blood and urine cultures are negative. He is nothing by mouth. He also is not evidently on any PPIs chronically, so we started a PPI, as well as some Reglan. 3. Elevated proBNP: At this time, the patient clinically does not appear volume overloaded, and his chest imaging does not show evidence of overload. He did receive 1 dose of Lasix in the emergency department. At this time, we will hold off on any further Lasix. We'll also follow I's and O's and daily weights. Echocardiogram shows mod pHTN, but no evidence of systolic or diastolic failure. 4. Chronic atrial fibrillation: On HD#1, Patient became tachycardic overnight and required one dose of IV metoprolol. We will monitor him on telemetry and continue his home digoxin. His home beta flores has been doubled from 10mg daily to 10mg BID and rate seems better controlled. Continue home eliquis. 5. Hypertension: Continue home beta florse and ARB. 6. History of CVA 2, hyperlipidemia: Continue home statin, ASA, and blood pressure control. 7. Chronic dysphagia: Continue home tube feeds; Per the patient, he uses Jevity 1.5 one can 5 times a day. He is unsure of how much free water flush he does after each feed, but a prior dietary note mentions that he should do 100 mL, which we will continue here. 8. Possible reactive airway: In the emergency department, they initially thought the patient had COPD, and even gave him steroids as they felt he was wheezing. The patient states he has never been diagnosed with COPD. Although he may have some component of reactive airway, I suspect that this is secondary to his chronic dysphagia and likely GERD, which is causing him to cough. As his lungs were much improved, I stopped steroids on 05/26. The patient will also have breathing treatments as needed. 9. Coffee grounds from PEG: Patient and nursing reported on HD #1 that there was a discharge from his PEG looked like coffee grounds. At that time, his tube feeds were stopped, and he was started on an PPI drip. We attempted to collect some of this to send for occult blood, but the staff was unable to obtain any, and it has not happened again. His Hgb has been stable. At this time, we have resumed his home TFs, as well as home eliquis and ASA. 10. Leukocytosis: WBC continues to slowly improve to 20 today, and the patient has remained afebrile. Peripheral smear was most consistent with a reactive process. Given his history of cancer, and his lack of clear source of infection here, with initially persistent leukocytosis despite tx from aspiration PNA, we reimaged his neck, which showed no mass or LAD, and have asked ENT to perform laryngoscope. Per patient, ENT told him the scope looked fine, but I am still awaiting the accounting representative. CT chest was not concerning for new or metastatic malignancy. Patient also reports that his hoarseness has been worsening; OUTDOOR ADVENTURE INSTRUCTOR to work with him on his voice. At this point, the WBC has started to slowly improve, and it appears that he may have just taken a while to respond to abx for aspiration pneumonia. 11. Diarrhea: GI panel negative; start imodium. DVT prophylaxis: SCDs and eliquis Dispo: pending continued improvement in leukocytosis after changing to PO antibiotics VS, I&O, 24H, [place] Vital Signs/I&O Vital Signs Date Time Temp Pulse Resp B/P (MAP) Pulse Ox O2 Delivery O2 Flow Rate FiO2 05/28/17 12:00 98.8 92 18 127/66 (86) 92 Room Air 05/28/17 08:00 1.0 I&O- Last 24 Hours up to 6 AM 05/29/17 05:59 Intake Total 50 ml Output Total 125 ml Balance -75 ml Laboratory Data 24H LABS Laboratory Tests 2 05/28/17 03:56: White Blood Count 20.0H, Red Blood Count 4.82, Hemoglobin 16.1, Hematocrit 47.2 , Mean Corpuscular Volume 97.9H, Mean Corpuscular Hemoglobin 33.4H, Mean Corpuscular Hemoglobin Concent 34.1, Red Cell Distribution Width 13.3, Platelet Count 224, Monocytes # (Auto) , Nucleated Red Blood Cells % (auto) 0.0, Neutrophils 86H, Lymphocytes (Manual) 7L, Monocytes (Manual) 7, Platelet Estimate NORMAL, Anion Gap 8, Glomerular Filtration Rate > 60.0, Blood Urea Nitrogen 20H, Creatinine 0.65L, Sodium Level 142, Potassium Level 3.6, Chloride Level 106, Carbon Dioxide Level 28, Calcium Level 8.3L, Magnesium Level 2.3 CBC/BMP Laboratory Tests 05/28/17 03:56 Red Blood Count 4.82, Mean Corpuscular Volume 97.9 H, Mean Corpuscular Hemoglobin 33.4 H, Mean Corpuscular Hemoglobin Concent 34.1, Red Cell Distribution Width 13.3, Monocytes # (Auto) , Calcium Level 8.3 L Microbiology Microbiology 05/24/17 Blood Culture - Preliminary, Resulted No Growth after 72 hours. All specime... 05/24/17 Blood Culture - Preliminary, Resulted No Growth after 72 hours. All specime... 05/27/17 Gastrointestinal Tract Panel (PCR) - Final, Complete 05/25/17 Gram Stain - Final, Complete 05/25/17 Sputum Culture - Final, Complete 05/24/17 Urine Culture - Final, Complete LEE HERNADEZ May 28, 2017 14:45
[2017-05-28 15:37] VITALS: BP 127/69
[2017-05-28 20:00] VITALS: BP 162/79
[2017-05-28] MEDS: ATORVASTATIN 20 MG TAB PEG SCH (20:59)
[2017-05-29] VITALS: BP 160/82
[2017-05-29] MEDS ORDERED: SLF 3 ML SYR IV PRN (03:45)
[2017-05-29 04:00] VITALS: BP 164/86
[2017-05-29 04:32] LABS: BASO # 0.1 10^3/uL (0.0-0.2); BASO % 0.3 % (0.0-1.0); EOS # 0.1 10^3/uL (0.0-0.50); EOS % 0.4 % (0.0-3.0); IMMATURE GRANULOCYTE % 1.1 % (0-0); LYMPH # 1.3 10^3/uL (1.5-4.5); LYMPH % 8.3 % (24.0-44.0); MEAN CORPUSCULAR HEMOGLOBIN 32.6 pg (27.0-33.0); MEAN CORPUSCULAR HGB CONC 33.6 g/dl (32.0-36.5); MEAN CORPUSCULAR VOLUME 97.2 fl (80.0-96.0); MONO # 1.2 10^3/uL (0.0-0.8); MONO % 7.6 % (0.0-5.0); NEUTROPHILS # 13.1 10^3/uL (1.8-7.7); NEUTROPHILS % 82.3 % (36.0-66.0); PLATELET COUNT, AUTOMATED 215 10^3/uL (150-450); RED CELL DISTRIBUTION WIDTH 13.3 % (11.5-14.5); WHITE BLOOD COUNT 15.9 10^3/uL (4.0-10.0)
[2017-05-29 04:48] LABS: ANION GAP 7 MEQ/L (8-16); BLOOD UREA NITROGEN 19 MG/DL (7-18); CALCIUM LEVEL 7.8 MG/DL (8.8-10.2); CARBON DIOXIDE LEVEL 30 MEQ/L (21-32); CHLORIDE LEVEL 106 MEQ/L (98-107); CREATININE FOR GFR 0.68 MG/DL (0.70-1.30); GLOMERULAR FILTRATION RATE > 60.0 (>42); GLUCOSE, FASTING 100 MG/DL (83-110); MAGNESIUM LEVEL 2.4 MG/DL (1.8-2.4); POTASSIUM SERUM 3.5 MEQ/L (3.5-5.1); SODIUM LEVEL 143 MEQ/L (136-145)
[2017-05-29] MEDS: SLF 3 ML SYR IV SCH ×2 (06:16→14:00)
[2017-05-29] MEDS: METOCLOPRAMIDE HCL LIQUID 10 MG/10 ML UDC PEG SCH ×2 (06:16→11:32)
[2017-05-29 07:42] VITALS: BP 145/78
[2017-05-29 08:56] VITALS: BP 145/78
[2017-05-29] MEDS: AUGMENTIN 875 MG TAB PO SCH (08:56)
[2017-05-29] MEDS: BISOPROLOL FUMARATE 10 MG TAB PEG SCH (08:56)
[2017-05-29] MEDS: LOPERAMIDE 2 MG CAP PO PRN ×2 (08:56→11:32)
[2017-05-29] MEDS: APIXABAN 5 MG TAB (ELIQUIS) PO SCH (08:57)
[2017-05-29] MEDS: LANSOPRAZOLE SUSPENSION 30 MG/10 ML ORAL SYRINGE (FIRST-LANSOPRAZOLE) PEG SCH (08:57)
[2017-05-29] MEDS: DIGOXIN 0.125 MG TAB PEG SCH (08:57)
[2017-05-29] MEDS: ASPIRIN 81 MG ENTERIC TAB PO SCH (08:57)
[2017-05-29] MEDS: LOSARTAN 25 MG TAB PEG SCH (08:57)
[2017-05-29 11:35] VITALS: BP 157/95
[2017-05-29 11:36] VITALS: BP 168/83
[2017-05-29] MEDS ORDERED: LOPE2CA PO (14:42)
[2017-05-29] MEDS ORDERED: METO10ELUD PEG (14:42)
[2017-05-29] MEDS ORDERED: FIRS3SUS PEG (14:42)
[2017-05-29] MEDS ORDERED: AMOX875T2 PO (14:42)
[2017-05-29] MEDS ORDERED: BISO10TA PEG (14:42)
--- NOTE | 2017-05-29 14:55 | DS.PDOC ---
Discharge Summary General Date of Admission May 24, 2017 at 11:17 Date of Discharge 05/29/2017 Discharge Summary DISCHARGE SUMMARY DATE OF ADMISSION: 05/24/2017 DATE OF DISCHARGE: 05/29/2017 PRIMARY CARE PHYSICIAN: Dr. Bri Buenrostro DISCHARGE DIAGNOS(E)S: Aspiration pneumonia Noncardiac chest pain Moderate pulmonary hypertension Coffee grounds discharge from PEG Leukocytosis HPI & HOSPITAL COURSE: 77-year-old male with hypertension, hyperlipidemia, history of CVA 2, atrial fibrillation, head and neck cancer status post surgical excision as well as chemotherapy and radiation, chronic dysphagia secondary to cancer treatment with PEG tube feeds who presented to the emergency department with cough and associated chest pain. He is admitted with concern for aspiration pneumonia. On HD#1, there was concern for coffee grounds coming out of his PEG. 1. Chest pain: I suspect this is secondary to his cough as it only occurs when he coughs. Initial EKG does not show acute infarct or ischemia and serial troponins are negative. 2. Aspiration pneumonia: The patient is afebrile, but he arrived with a significantly elevated white count of 29.9. Although his initial chest imaging was negative for acute findings, I suspect that when he vomited the night prior to and the morning of admission, he potentially aspirated, and it was simply too soon for us to be able to see any changes on his chest imaging. At this time , we have presumptively treated him for aspiration pneumonia, first with Unasyn , now transitioned to augmentin. Sputum culture was of poor quality, and blood and urine cultures are negative. He is nothing by mouth. He also is not evidently on any PPIs chronically, so we started a PPI, as well as some Reglan, as chest imaging showed evidence of reflux. 3. Elevated proBNP: At this time, the patient clinically does not appear volume overloaded, and his chest imaging does not show evidence of overload. He did receive 1 dose of Lasix in the emergency department. At this time, we will hold off on any further Lasix. We'll also follow I's and O's and daily weights. Echocardiogram shows mod pHTN, but no evidence of systolic or diastolic failure. 4. Chronic atrial fibrillation: On HD#1, Patient became tachycardic overnight and required one dose of IV metoprolol. We will monitor him on telemetry and continue his home digoxin. His home beta flores has been doubled from 10mg daily to 10mg BID and rate seems better controlled. Continue home eliquis. 5. Hypertension: Continue home beta flores and ARB. 6. History of CVA 2, hyperlipidemia: Continue home statin, ASA, and blood pressure control. 7. Chronic dysphagia: Continue home tube feeds; Per the patient, he uses Jevity 1.5 one can 5 times a day. He is unsure of how much free water flush he does after each feed, but a prior dietary note mentions that he should do 100 mL, which we will continue here. 8. Possible reactive airway: In the emergency department, they initially thought the patient had COPD, and even gave him steroids as they felt he was wheezing. The patient states he has never been diagnosed with COPD. Although he may have some component of reactive airway, I suspect that this is secondary to his chronic dysphagia and likely GERD, which is causing him to cough. As his lungs were much improved, I stopped steroids on 05/26. The patient will also have breathing treatments as needed. 9. Coffee grounds from PEG: Patient and nursing reported on HD #1 that there was a discharge from his PEG looked like coffee grounds. At that time, his tube feeds were stopped, and he was started on an PPI drip. We attempted to collect some of this to send for occult blood, but the staff was unable to obtain any, and it has not happened again. His Hgb has been stable. At this time, we have resumed his home TFs, as well as home eliquis and ASA. 10. Leukocytosis: WBC continues to slowly improve to 15.9 today, and the patient has remained afebrile. Peripheral smear was most consistent with a reactive process. Given his history of cancer, and his lack of clear source of infection here, with initially persistent leukocytosis despite tx from aspiration PNA, we reimaged his neck, which showed no mass or LAD, and have asked ENT to perform laryngoscope, which per verbal report from Dr. Johnson, did not show evidence of disease. CT chest was not concerning for new or metastatic malignancy. Patient also reports that his hoarseness has been worsening; ASSISTANT PROGRAM DIRECTOR worked with him on his voice. At this point, the WBC has started to slowly improve, and it appears that he may have just taken a while to respond to abx for aspiration pneumonia. 11. Diarrhea: GI panel negative; continue imodium. The patient is very anxious to go home, and although I expressed my concern to him that the diarrhea leaves him vulnerable to dehydration, he feels confident that he can handle his hydration at home with his tube feeds and free water flushes. He was just started on Imodium this morning, which we'll continue when he leaves. He has been given strict instructions about returning if the diarrhea continues. DVT prophylaxis: SCDs and eliquis PHYSICAL EXAMINATION ON DISCHARGE: VITAL SIGNS: Vital Signs Date Time Temp Pulse Resp B/P (MAP) Pulse Ox O2 Delivery O2 Flow Rate FiO2 05/29/17 11:36 168/83 (111) 05/29/17 11:35 97.6 88 18 93 Room Air 05/28/17 08:00 1.0 General: Awake, alert, no acute distress HEENT: Normocephalic, atraumatic, extraocular movements intact CV: Irregularly irregular Lungs: CTAB Abd: Soft, nontender, nondistended Extremities: No edema Neuro: Alert and oriented 3, hoarse voice Psych: Normal mood and affect DISPOSITION: Home DISCHARGE INSTRUCTIONS: PCP Dr. Buenrostro within 1 week. Continue home tube feeds with 1 can of Jevity 1.5 five times a day, followed by 100 mL free water flush with each feed. If diarrhea persists, please return to ED for assessment of possible dehydration. If symptoms return, or if you experience worsening of your symptoms, please call your doctor or return to the emergency department. ITEMS THAT NEED OUTPATIENT FOLLOWUP: Continued resolution of diarrhea and leukocytosis Patient was seen and examined by me on the day of discharge, and I spent a total time of greater than 30 minutes on this discharge. Vital Signs/I&Os Vital Signs Date Time Temp Pulse Resp B/P (MAP) Pulse Ox O2 Delivery O2 Flow Rate FiO2 05/29/17 11:36 168/83 (111) 05/29/17 11:35 97.6 88 18 93 Room Air 05/28/17 08:00 1.0 I&O- Last 24 Hours up to 6 AM 05/30/17 06:00 Intake Total 60 ml Output Total 425 ml Balance -365 ml Laboratory Data Labs 24H Laboratory Tests 2 05/29/17 03:56: Immature Granulocyte % (Auto) 1.1H, White Blood Count 15.9H, Red Blood Count 4.66, Hemoglobin 15.2, Hematocrit 45.3, Mean Corpuscular Volume 97.2H, Mean Corpuscular Hemoglobin 32.6, Mean Corpuscular Hemoglobin Concent 33.6, Red Cell Distribution Width 13.3, Platelet Count 215, Neutrophils (%) (Auto) 82.3H, Lymphocytes (%) (Auto) 8.3L, Monocytes (%) (Auto) 7.6H, Eosinophils (%) (Auto) 0.4, Basophils (%) (Auto) 0.3, Neutrophils # (Auto) 13.1H, Lymphocytes # (Auto) 1.3L, Monocytes # (Auto) 1.2H, Eosinophils # (Auto) 0.1, Basophils # (Auto) 0.1 , Immature Granulocyte # (Auto) 0.2H, Nucleated Red Blood Cells % (auto) 0.0, Anion Gap 7L, Glomerular Filtration Rate > 60.0, Blood Urea Nitrogen 19H, Creatinine 0.68L, Sodium Level 143, Potassium Level 3.5, Chloride Level 106, Carbon Dioxide Level 30, Calcium Level 7.8L, Magnesium Level 2.4 CBC/BMP Laboratory Tests 05/29/17 03:56 Red Blood Count 4.66, Mean Corpuscular Volume 97.2 H, Mean Corpuscular Hemoglobin 32.6, Mean Corpuscular Hemoglobin Concent 33.6, Red Cell Distribution Width 13.3, Neutrophils (%) (Auto) 82.3 H, Lymphocytes (%) (Auto) 8.3 L, Monocytes (%) (Auto) 7.6 H, Eosinophils (%) (Auto) 0.4, Basophils (%) ( Auto) 0.3, Neutrophils # (Auto) 13.1 H, Lymphocytes # (Auto) 1.3 L, Monocytes # (Auto) 1.2 H, Eosinophils # (Auto) 0.1, Basophils # (Auto) 0.1, Calcium Level 7.8 L Microbiology Microbiology 05/24/17 Blood Culture - Final, Complete NO GROWTH AFTER 5 DAYS 05/24/17 Blood Culture - Final, Complete NO GROWTH AFTER 5 DAYS 05/27/17 Gastrointestinal Tract Panel (PCR) - Final, Complete 05/25/17 Gram Stain - Final, Complete 05/25/17 Sputum Culture - Final, Complete 05/24/17 Urine Culture - Final, Complete Discharge Medications Scheduled (Jevity 1.5 Xander) 1 Liq Liq, 1 LIQ PEG 6XD, (Reported) (First-Lansoprazole) 3 Mg/Ml Kathleen, 30 MG PEG BID Amoxicillin/Clavulanate Potas (Amoxicillin/Clavulanate P 875-125 mg) 1 Tab Tab, 875 MG PO BID Apixaban Base (Eliquis) 5 Mg Tab, 5 MG PO BID, (Reported) Aspirin (Childrens Aspirin) 81 Mg Chew, 81 MG PEG DAILY Atorvastatin Calcium (Atorvastatin Calcium) 20 Mg Tab, 20 MG PEG QHS, (Reported) Bisoprolol Fumarate (Zebeta) 10 Mg Tab, 10 MG PEG BID Digoxin (Digoxin) 0.125 Mg Tab, 0.125 MG PEG DAILY, (Reported) Losartan Potassium (Losartan Potassium) 25 Mg Tab, 25 MG PEG DAILY, (Reported) Metoclopramide HCl (Metoclopramide HCl) 10 Mg/10 Ml Soln, 5 MG PEG Q6H Scheduled PRN Albuterol Sulfate (Proventil Hfa) 167 Puff/6.7 Gm Aers, 2 PUFFS INH Q4HP PRN for WHEEZING Loperamide HCl (Loperamide HCl) 2 Mg Cap, 2 MG PO ASDIRECTED PRN for DIARRHEA Take one after each loose stool Allergies Coded Allergies: Contrast Media (Verified Allergy, Mild, RASH, 06/17/14) Iodine (Verified Allergy, Unknown, 06/17/14) LEE HERNADEZ May 29, 2017 14:55
== END 2017-05-29 16:42 | disposition home or self-care (01) | DRG 179 ==
LOC: M ED 09:18 → M ED INP 11:17 → M PCU 14:58
PROVIDERS: ADMIT Hospitalist; ATTEND Hospitalist
DX: J69.0 Pneumonitis due to inhalation of food and vomit (principal); I10 Essential (primary) hypertension; E78.5 Hyperlipidemia, unspecified; Z66 Do not resuscitate; I48.2 Chronic atrial fibrillation; Z92.21 Personal history of antineoplastic chemotherapy; Z92.3 Personal history of irradiation; Z85.828 Personal history of other malignant neoplasm of skin; Z93.1 Gastrostomy status; Z95.9 Presence of cardiac and vascular implant and graft, unspecified; Z87.891 Personal history of nicotine dependence; Z91.041 Radiographic dye allergy status; Z86.73 Personal history of transient ischemic attack (TIA), and cerebral infarction without residual deficits; Z91.048 Other nonmedicinal substance allergy status; Z79.01 Long term (current) use of anticoagulants; Z79.82 Long term (current) use of aspirin; Z79.899 Other long term (current) drug therapy

== ENCOUNTER 2017-09-16 11:14 | Inpatient (IN) | payer MEDICARE, OTHER ==
[2017-09-16 12:17] LABS: BASO # 0.1 10^3/uL (0.0-0.2); BASO % 0.5 % (0.0-1.0); HEMATOCRIT 47.7 % (42.0-52.0); IMMATURE GRANULOCYTE # 0.1 10^3/uL (0-0); IMMATURE GRANULOCYTE % 0.5 % (0-0); LYMPH # 0.6 10^3/uL (1.5-4.5); LYMPH % 5.9 % (24.0-44.0); MEAN CORPUSCULAR HEMOGLOBIN 32.3 pg (27.0-33.0); MEAN CORPUSCULAR HGB CONC 33.5 g/dl (32.0-36.5); MEAN CORPUSCULAR VOLUME 96.4 fl (80.0-96.0); MONO # 1.1 10^3/uL (0.0-0.8); NEUTROPHILS # 8.7 10^3/uL (1.8-7.7); NEUTROPHILS % 83.1 % (36.0-66.0); PLATELET COUNT, AUTOMATED 210 10^3/uL (150-450); RED BLOOD COUNT 4.95 10^6/uL (4.30-6.10); WHITE BLOOD COUNT 10.5 10^3/uL (4.0-10.0)
[2017-09-16 12:44] LABS: INR 1.42; PROTHROMBIN TIME 17.7 SECONDS (12.4-14.5)
[2017-09-16 12:58] LABS: ALBUMIN 3.6 GM/DL (3.2-5.2); ALBUMIN/GLOBULIN RATIO 0.77 (1.00-1.93); ALKALINE PHOSPHATASE 63 U/L (45-117); ALT/SGPT 32 U/L (12-78); AST/SGOT 44 U/L (7-37); BILIRUBIN,DIRECT 0.2 MG/DL (0.0-0.2); BILIRUBIN,TOTAL 0.5 MG/DL (0.2-1.0); NT-PRO BNP 5445 PG/ML (<450); TOTAL PROTEIN 8.3 GM/DL (6.4-8.2)
[2017-09-16 13:03] LABS: LACTIC ACID SEPSIS PROTOCOL 2.3 MMOL/L (0.4-2.0)
[2017-09-16 13:06] LABS: ANION GAP 7 MEQ/L (8-16); BLOOD UREA NITROGEN 20 MG/DL (7-18); CALCIUM LEVEL 8.5 MG/DL (8.8-10.2); CARBON DIOXIDE LEVEL 29 MEQ/L (21-32); CHLORIDE LEVEL 101 MEQ/L (98-107); CK-MB VALUE MASS 1.8 NG/ML (0.0-3.6); CPK CREATINE PHOSPHOKINASE 151 U/L (39-308); GLOMERULAR FILTRATION RATE > 60.0 (>42); GLUCOSE, FASTING 111 MG/DL (70-100); MB/CK RELATIVE INDEX 1.19 (< OR =4); SODIUM LEVEL 137 MEQ/L (136-145); TROPONIN I 0.04 NG/ML (< 0.10)
[2017-09-16] MEDS: IPRATROPIUM 0.5MG/ALBUTEROL 2.5MG INH SOL UD 3ML (DUONEB)(J7620) NEB (13:23)
[2017-09-16] MEDS: methylPREDNISolone INJ 125 MG/2 ML VIAL (J2930) IV (13:30)
[2017-09-16] MEDS: FUROSEMIDE 40 MG/4 ML VIAL (J1940) IV (13:30)
[2017-09-16] MEDS ORDERED: ALBUTEROL 90 MCG/ACT 8GM HFA INHALER INH (16:30)
[2017-09-16] MEDS ORDERED: BISACODYL 5 MG TAB PEG (16:30)
[2017-09-16 17:26] LABS: FREE T4 1.21 NG/DL (0.76-1.46)
[2017-09-16 17:26] LABS: FREE T3 1.7 PG/ML (2.2-4.0)
[2017-09-16] MEDS ORDERED: SLF 3 ML SYR IV (18:15)
[2017-09-16] MEDS ORDERED: guaiFENesin DM LIQ 10ML UD PO (20:45)
[2017-09-16] MEDS ORDERED: guaiFENesin ER 600 MG TAB PO (21:00)
[2017-09-16] MEDS ORDERED: BENZONATATE 100 MG CAP PO (21:00)
[2017-09-16] MEDS: APIXABAN 5 MG TAB (ELIQUIS) PEG (21:09)
[2017-09-16] MEDS: OSELTAMIVIR PHOSPHATE 30MG CAPSULE PO (21:09)
[2017-09-16] MEDS: ATORVASTATIN 20 MG TAB PEG (21:09)
[2017-09-16] MEDS: SLF 3 ML SYR IV (21:10)
[2017-09-17 04:37] LABS: BASO % 0.1 % (0.0-1.0); HEMATOCRIT 44.3 % (42.0-52.0); HEMOGLOBIN 15.1 g/dl (14.0-18.0); IMMATURE GRANULOCYTE % 0.2 % (0-0); LYMPH # 0.6 10^3/uL (1.5-4.5); MEAN CORPUSCULAR HEMOGLOBIN 32.1 pg (27.0-33.0); MEAN CORPUSCULAR HGB CONC 34.1 g/dl (32.0-36.5); MEAN CORPUSCULAR VOLUME 94.3 fl (80.0-96.0); MONO # 0.8 10^3/uL (0.0-0.8); NEUTROPHILS # 8.7 10^3/uL (1.8-7.7); NEUTROPHILS % 85.7 % (36.0-66.0); PLATELET COUNT, AUTOMATED 196 10^3/uL (150-450); RED CELL DISTRIBUTION WIDTH 12.9 % (11.5-14.5); WHITE BLOOD COUNT 10.1 10^3/uL (4.0-10.0)
[2017-09-17 05:02] LABS: ANION GAP 9 MEQ/L (8-16); BLOOD UREA NITROGEN 28 MG/DL (7-18); CALCIUM LEVEL 8.3 MG/DL (8.8-10.2); CARBON DIOXIDE LEVEL 27 MEQ/L (21-32); CHLORIDE LEVEL 103 MEQ/L (98-107); CREATININE FOR GFR 0.77 MG/DL (0.70-1.30); GLOMERULAR FILTRATION RATE > 60.0 (>42); GLUCOSE, FASTING 150 MG/DL (70-100); POTASSIUM SERUM 3.5 MEQ/L (3.5-5.1); SODIUM LEVEL 139 MEQ/L (136-145)
[2017-09-17] MEDS: LEVOTHYROXINE 25MCG TABLET (0.025MG) PEG (06:36)
[2017-09-17] MEDS: SLF 3 ML SYR IV ×3 (06:37→21:38)
[2017-09-17] MEDS: LOSARTAN 25 MG TAB PEG (08:46)
[2017-09-17] MEDS: APIXABAN 5 MG TAB (ELIQUIS) PEG ×2 (08:47→21:27)
[2017-09-17] MEDS: OSELTAMIVIR PHOSPHATE 30MG CAPSULE PO ×2 (08:47→21:26)
[2017-09-17] MEDS: BISOPROLOL FUMARATE 10 MG TAB PEG (08:47)
[2017-09-17] MEDS: DIGOXIN 0.125 MG TAB PEG (08:47)
[2017-09-17] MEDS: ASPIRIN 81 MG CHEW TABLET PEG (08:55)
[2017-09-17] MEDS ORDERED: ASPIRIN 81 MG ENTERIC TAB PEG (09:00)
[2017-09-17 11:15] LABS: DIGOXIN LEVEL 0.6 NG/ML (0.5-2.0)
[2017-09-17] MEDS: DIGOXIN 0.125 MG TAB PO (11:37)
[2017-09-17] MEDS: ATORVASTATIN 20 MG TAB PEG (21:26)
[2017-09-18 04:13] LABS: BASO % 0.1 % (0.0-1.0); HEMATOCRIT 48.6 % (42.0-52.0); HEMOGLOBIN 16.4 g/dl (14.0-18.0); IMMATURE GRANULOCYTE # 0.1 10^3/uL (0-0); IMMATURE GRANULOCYTE % 0.5 % (0-0); LYMPH # 1.4 10^3/uL (1.5-4.5); LYMPH % 8.3 % (24.0-44.0); MEAN CORPUSCULAR HEMOGLOBIN 32.3 pg (27.0-33.0); MEAN CORPUSCULAR HGB CONC 33.7 g/dl (32.0-36.5); MEAN CORPUSCULAR VOLUME 95.9 fl (80.0-96.0); MONO # 1.2 10^3/uL (0.0-0.8); MONO % 7.1 % (0.0-5.0); NEUTROPHILS # 14.2 10^3/uL (1.8-7.7); PLATELET COUNT, AUTOMATED 222 10^3/uL (150-450); RED BLOOD COUNT 5.07 10^6/uL (4.30-6.10); RED CELL DISTRIBUTION WIDTH 13.2 % (11.5-14.5); WHITE BLOOD COUNT 16.9 10^3/uL (4.0-10.0)
[2017-09-18 04:26] LABS: ANION GAP 6 MEQ/L (8-16); BLOOD UREA NITROGEN 24 MG/DL (7-18); CARBON DIOXIDE LEVEL 34 MEQ/L (21-32); CHLORIDE LEVEL 100 MEQ/L (98-107); CREATININE FOR GFR 0.86 MG/DL (0.70-1.30); GLOMERULAR FILTRATION RATE > 60.0 (>42); GLUCOSE, FASTING 118 MG/DL (70-100); POTASSIUM SERUM 3.9 MEQ/L (3.5-5.1); SODIUM LEVEL 140 MEQ/L (136-145)
[2017-09-18] MEDS: LEVOTHYROXINE 25MCG TABLET (0.025MG) PEG (05:55)
[2017-09-18] MEDS: SLF 3 ML SYR IV ×3 (05:56→22:06)
[2017-09-18 07:52] LABS: MAGNESIUM LEVEL 2.3 MG/DL (1.8-2.4)
[2017-09-18] MEDS: BISOPROLOL FUMARATE 10 MG TAB PEG (09:00)
[2017-09-18] MEDS: DIGOXIN 0.25 MG TAB PEG (09:00)
[2017-09-18] MEDS: LOSARTAN 25 MG TAB PEG (09:00)
[2017-09-18] MEDS: APIXABAN 5 MG TAB (ELIQUIS) PEG ×2 (09:00→22:05)
[2017-09-18] MEDS: OSELTAMIVIR PHOSPHATE 30MG CAPSULE PO ×2 (09:00→22:06)
[2017-09-18] MEDS: CEFTRIAXONE SOD 1 GM in APPROPRIATE DILUENT 1 EA IV ×2 (09:00→22:07)
[2017-09-18] MEDS: ASPIRIN 81 MG CHEW TABLET PEG (09:00)
[2017-09-18] MEDS: ATORVASTATIN 20 MG TAB PEG (22:06)
[2017-09-19] MEDS: ACETAMINOPHEN 325 MG/10.15 ML UDC PEG (01:06)
[2017-09-19 05:26] LABS: BASO % 0.1 % (0.0-1.0); HEMATOCRIT 43.6 % (42.0-52.0); HEMOGLOBIN 14.9 g/dl (14.0-18.0); IMMATURE GRANULOCYTE # 0.1 10^3/uL (0-0); IMMATURE GRANULOCYTE % 0.4 % (0-0); LYMPH # 1.4 10^3/uL (1.5-4.5); LYMPH % 10.2 % (24.0-44.0); MEAN CORPUSCULAR HEMOGLOBIN 31.8 pg (27.0-33.0); MEAN CORPUSCULAR HGB CONC 34.2 g/dl (32.0-36.5); MEAN CORPUSCULAR VOLUME 93.2 fl (80.0-96.0); MONO # 0.9 10^3/uL (0.0-0.8); MONO % 6.2 % (0.0-5.0); NEUTROPHILS # 11.4 10^3/uL (1.8-7.7); NEUTROPHILS % 83.1 % (36.0-66.0); PLATELET COUNT, AUTOMATED 197 10^3/uL (150-450); RED BLOOD COUNT 4.68 10^6/uL (4.30-6.10); RED CELL DISTRIBUTION WIDTH 13.1 % (11.5-14.5); WHITE BLOOD COUNT 13.7 10^3/uL (4.0-10.0)
[2017-09-19 05:50] LABS: ANION GAP 7 MEQ/L (8-16); BLOOD UREA NITROGEN 23 MG/DL (7-18); CALCIUM LEVEL 8.6 MG/DL (8.8-10.2); CARBON DIOXIDE LEVEL 30 MEQ/L (21-32); CHLORIDE LEVEL 105 MEQ/L (98-107); CREATININE FOR GFR 0.64 MG/DL (0.70-1.30); GLOMERULAR FILTRATION RATE > 60.0 (>42); GLUCOSE, FASTING 123 MG/DL (70-100); POTASSIUM SERUM 3.5 MEQ/L (3.5-5.1); SODIUM LEVEL 142 MEQ/L (136-145)
[2017-09-19] MEDS: SLF 3 ML SYR IV ×3 (05:55→21:33)
[2017-09-19] MEDS: LEVOTHYROXINE 25MCG TABLET (0.025MG) PEG (05:55)
[2017-09-19] MEDS: APIXABAN 5 MG TAB (ELIQUIS) PEG ×2 (07:48→21:33)
[2017-09-19] MEDS: ASPIRIN 81 MG CHEW TABLET PEG (07:48)
[2017-09-19] MEDS: DIGOXIN 0.25 MG TAB PEG (07:49)
[2017-09-19] MEDS: LOSARTAN 25 MG TAB PEG (07:49)
[2017-09-19] MEDS: OSELTAMIVIR PHOSPHATE 30MG CAPSULE PO ×2 (07:50→21:33)
[2017-09-19] MEDS: BISOPROLOL FUMARATE 10 MG TAB PEG (07:50)
[2017-09-19] MEDS: CEFTRIAXONE SOD 1 GM in APPROPRIATE DILUENT 1 EA IV ×2 (09:37→21:33)
[2017-09-19] MEDS: ATORVASTATIN 20 MG TAB PEG (21:33)
[2017-09-20 05:18] LABS: BASO % 0.1 % (0.0-1.0); HEMATOCRIT 43.5 % (42.0-52.0); HEMOGLOBIN 14.8 g/dl (14.0-18.0); IMMATURE GRANULOCYTE # 0.1 10^3/uL (0-0); IMMATURE GRANULOCYTE % 0.5 % (0-0); LYMPH # 1.2 10^3/uL (1.5-4.5); LYMPH % 8.1 % (24.0-44.0); MEAN CORPUSCULAR HEMOGLOBIN 32.1 pg (27.0-33.0); MEAN CORPUSCULAR VOLUME 94.4 fl (80.0-96.0); MONO # 0.8 10^3/uL (0.0-0.8); MONO % 5.6 % (0.0-5.0); NEUTROPHILS # 12.6 10^3/uL (1.8-7.7); NEUTROPHILS % 85.7 % (36.0-66.0); PLATELET COUNT, AUTOMATED 203 10^3/uL (150-450); RED BLOOD COUNT 4.61 10^6/uL (4.30-6.10); WHITE BLOOD COUNT 14.7 10^3/uL (4.0-10.0)
[2017-09-20] MEDS: SLF 3 ML SYR IV ×3 (05:33→21:38)
[2017-09-20] MEDS: LEVOTHYROXINE 25MCG TABLET (0.025MG) PEG (05:33)
[2017-09-20 05:45] LABS: ANION GAP 9 MEQ/L (8-16); BLOOD UREA NITROGEN 21 MG/DL (7-18); CALCIUM LEVEL 8.7 MG/DL (8.8-10.2); CARBON DIOXIDE LEVEL 31 MEQ/L (21-32); CHLORIDE LEVEL 103 MEQ/L (98-107); CREATININE FOR GFR 0.55 MG/DL (0.70-1.30); GLOMERULAR FILTRATION RATE > 60.0 (>42); GLUCOSE, FASTING 124 MG/DL (70-100); POTASSIUM SERUM 3.4 MEQ/L (3.5-5.1); SODIUM LEVEL 143 MEQ/L (136-145)
[2017-09-20] MEDS ORDERED: POTASSIUM CHLORIDE 10 MEQ SR TABLET PO (08:45)
[2017-09-20] MEDS: ASPIRIN 81 MG CHEW TABLET PEG (09:10)
[2017-09-20] MEDS: BISOPROLOL FUMARATE 10 MG TAB PEG (09:11)
[2017-09-20] MEDS: DIGOXIN 0.25 MG TAB PEG (09:11)
[2017-09-20] MEDS: CEFTRIAXONE SOD 1 GM in APPROPRIATE DILUENT 1 EA IV (09:12)
[2017-09-20] MEDS: APIXABAN 5 MG TAB (ELIQUIS) PEG ×2 (09:12→21:38)
[2017-09-20] MEDS: LOSARTAN 25 MG TAB PEG (09:12)
[2017-09-20] MEDS: OSELTAMIVIR PHOSPHATE 30MG CAPSULE PO (09:13)
[2017-09-20] MEDS: POTASSIUM CHLORIDE 10% LIQ 20 MEQ/15 ML UDC PO (11:46)
[2017-09-20] MEDS: LOSARTAN 25 MG TAB PO (15:30)
[2017-09-20] MEDS: LevoFLOXacin 500 MG TABLET PO (15:30)
[2017-09-20] MEDS ORDERED: LOSARTAN 50 MG TAB PEG (21:00)
[2017-09-20] MEDS: ATORVASTATIN 20 MG TAB PEG (21:38)
[2017-09-21 05:21] LABS: HEMATOCRIT 43.2 % (42.0-52.0); HEMOGLOBIN 14.7 g/dl (14.0-18.0); MEAN CORPUSCULAR HEMOGLOBIN 32.1 pg (27.0-33.0); MEAN CORPUSCULAR VOLUME 94.3 fl (80.0-96.0); PLATELET COUNT, AUTOMATED 257 10^3/uL (150-450); RED BLOOD COUNT 4.58 10^6/uL (4.30-6.10); RED CELL DISTRIBUTION WIDTH 12.8 % (11.5-14.5); WHITE BLOOD COUNT 9.7 10^3/uL (4.0-10.0)
[2017-09-21 05:23] LABS: POSITIVE MORPH POS FLAG
[2017-09-21 05:24] LABS: ADD MANUAL DIFFER YES; DIFF SLIDE NUMBER 21
[2017-09-21 05:51] LABS: ANION GAP 6 MEQ/L (8-16); BLOOD UREA NITROGEN 22 MG/DL (7-18); CALCIUM LEVEL 8.9 MG/DL (8.8-10.2); CARBON DIOXIDE LEVEL 30 MEQ/L (21-32); CHLORIDE LEVEL 104 MEQ/L (98-107); CREATININE FOR GFR 0.52 MG/DL (0.70-1.30); GLOMERULAR FILTRATION RATE > 60.0 (>42); GLUCOSE, FASTING 97 MG/DL (70-100); POTASSIUM SERUM 3.9 MEQ/L (3.5-5.1); SODIUM LEVEL 140 MEQ/L (136-145)
[2017-09-21 06:17] LABS: ATYPICAL LYMPH 3 % (0-5); EOSINOPHILS 1 % (0-5); LYMPHOCYTES 20 % (16-52); MONOCYTES 6 % (0-8); NEUTROPHILS 70 % (35-75)
[2017-09-21 06:18] LABS: PLATELET ESTIMATE NORMAL (NORMAL)
[2017-09-21 06:22] LABS: HOWELL-JOLLY BODIES 1+
[2017-09-21] MEDS: LEVOTHYROXINE 25MCG TABLET (0.025MG) PEG (06:27)
[2017-09-21] MEDS: SLF 3 ML SYR IV ×3 (06:30→20:00)
[2017-09-21] MEDS: LevoFLOXacin 500 MG TABLET PO (06:30)
[2017-09-21] MEDS: APIXABAN 5 MG TAB (ELIQUIS) PEG ×2 (07:59→20:00)
[2017-09-21] MEDS: BISOPROLOL FUMARATE 10 MG TAB PEG (07:59)
[2017-09-21] MEDS: DIGOXIN 0.125 MG TAB PEG (07:59)
[2017-09-21] MEDS: ASPIRIN 81 MG CHEW TABLET PEG (07:59)
[2017-09-21] MEDS: LOSARTAN 50 MG TAB PEG (08:00)
[2017-09-21] MEDS ORDERED: LOSARTAN 25 MG TAB PEG (09:00)
[2017-09-21] MEDS: predniSONE 10 MG TAB PO (12:02)
[2017-09-21] MEDS: IPRATROPIUM 0.5MG/ALBUTEROL 2.5MG INH SOL UD 3ML (DUONEB)(J7620) NEB ×3 (13:08→20:56)
[2017-09-21] MEDS: ATORVASTATIN 20 MG TAB PEG (20:00)
[2017-09-22] MEDS: IPRATROPIUM 0.5MG/ALBUTEROL 2.5MG INH SOL UD 3ML (DUONEB)(J7620) NEB ×4 (03:23→11:59)
[2017-09-22 05:31] LABS: BASO % 0.2 % (0.0-1.0); HEMATOCRIT 41.9 % (42.0-52.0); HEMOGLOBIN 14.3 g/dl (14.0-18.0); IMMATURE GRANULOCYTE % 0.5 % (0-3.0); LYMPH # 1.4 10^3/uL (1.5-4.5); LYMPH % 13.9 % (24.0-44.0); MEAN CORPUSCULAR HEMOGLOBIN 31.8 pg (27.0-33.0); MEAN CORPUSCULAR HGB CONC 34.1 g/dl (32.0-36.5); MEAN CORPUSCULAR VOLUME 93.1 fl (80.0-96.0); MONO # 0.7 10^3/uL (0.0-0.8); MONO % 6.7 % (0.0-5.0); NEUTROPHILS % 78.7 % (36.0-66.0); PLATELET COUNT, AUTOMATED 319 10^3/uL (150-450); RED CELL DISTRIBUTION WIDTH 12.6 % (11.5-14.5); WHITE BLOOD COUNT 10.1 10^3/uL (4.0-10.0)
[2017-09-22] MEDS: SLF 3 ML SYR IV (05:49)
[2017-09-22] MEDS: LEVOTHYROXINE 25MCG TABLET (0.025MG) PEG (05:49)
[2017-09-22] MEDS: LevoFLOXacin 500 MG TABLET PO (05:49)
[2017-09-22 05:50] LABS: ANION GAP 7 MEQ/L (8-16); BLOOD UREA NITROGEN 21 MG/DL (7-18); CALCIUM LEVEL 8.8 MG/DL (8.8-10.2); CARBON DIOXIDE LEVEL 28 MEQ/L (21-32); CHLORIDE LEVEL 106 MEQ/L (98-107); CREATININE FOR GFR 0.63 MG/DL (0.70-1.30); GLOMERULAR FILTRATION RATE > 60.0 (>42); GLUCOSE, FASTING 103 MG/DL (70-100); POTASSIUM SERUM 4.3 MEQ/L (3.5-5.1); SODIUM LEVEL 141 MEQ/L (136-145)
[2017-09-22] MEDS: BISOPROLOL FUMARATE 10 MG TAB PEG (09:33)
[2017-09-22] MEDS: predniSONE 10 MG TAB PO (09:33)
[2017-09-22] MEDS: ASPIRIN 81 MG CHEW TABLET PEG (09:33)
[2017-09-22] MEDS: APIXABAN 5 MG TAB (ELIQUIS) PEG (09:34)
[2017-09-22] MEDS: DIGOXIN 0.125 MG TAB PEG (09:34)
[2017-09-22] MEDS: LOSARTAN 50 MG TAB PEG (09:34)
== END 2017-09-22 13:35 | disposition home or self-care (01) | DRG 194 ==
LOC: M ED 11:14 → M ED INP 16:06 → M PCU 17:56
DX: J10.1 Influenza due to other identified influenza virus with other respiratory manifestations (principal); I50.32 Chronic diastolic (congestive) heart failure; E87.2 Acidosis; E03.9 Hypothyroidism, unspecified; B96.1 Klebsiella pneumoniae [K. pneumoniae] as the cause of diseases classified elsewhere; E78.5 Hyperlipidemia, unspecified; I48.91 Unspecified atrial fibrillation; I11.0 Hypertensive heart disease with heart failure; Z92.21 Personal history of antineoplastic chemotherapy; Z92.3 Personal history of irradiation; Z86.73 Personal history of transient ischemic attack (TIA), and cerebral infarction without residual deficits; Z93.1 Gastrostomy status; Z79.01 Long term (current) use of anticoagulants; Z91.048 Other nonmedicinal substance allergy status; Z91.041 Radiographic dye allergy status; Z79.899 Other long term (current) drug therapy; Z95.9 Presence of cardiac and vascular implant and graft, unspecified; Z87.891 Personal history of nicotine dependence

== ENCOUNTER 2017-12-14 10:46 | Emergency (ER) | payer MEDICARE, OTHER ==
[2017-12-14] MEDS: ACETAMINOPHEN TAB 650MG DOSE (2X325MG) PO (11:45)
== END 2017-12-14 12:59 | disposition home or self-care (01) ==
LOC: M ED 10:46
DX: M19.011 Primary osteoarthritis, right shoulder (principal); W19.XXXA Unspecified fall, initial encounter; Y92.099 Unspecified place in other non-institutional residence as the place of occurrence of the external cause; Y93.9 Activity, unspecified; Y99.9 Unspecified external cause status; I50.9 Heart failure, unspecified; I10 Essential (primary) hypertension; E78.00 Pure hypercholesterolemia, unspecified; J44.9 Chronic obstructive pulmonary disease, unspecified; Z93.1 Gastrostomy status; Z87.891 Personal history of nicotine dependence; Z79.82 Long term (current) use of aspirin; Z79.899 Other long term (current) drug therapy; Z91.041 Radiographic dye allergy status; Z91.89 Other specified personal risk factors, not elsewhere classified
CPT/HCPCS: 73030

== ENCOUNTER 2018-10-24 09:10 | Inpatient (IN) | payer MEDICARE, OTHER ==
[~2018-10-24] VITALS: Ht 167.6 cm; Wt 62.3 kg
[~2018-10-24 09:10] MED LIST changes: +AMOX875T2 PO; +ASPI1TAB PEG; +BISO10TA6 PEG; -BISOPROLOL FUMARATE 10 MG TAB PEG SCH; +COZA50TA PEG; +ELIQ5TAB PEG; -ELIQ5TAB PO; +FIRS3SUS PEG; +JEVILIQ10 PEG; -LASI40TA PO; +LASI40TA9 PO; +LEVA1TAB2 PO; +LEVO25TA34 PEG; +LOPE2CA PO; +LOSA25TA14 PEG; -LOSA50TA20 PO; +LOSA50TA88 PO; +METO10ELUD PEG; +PRED10TA2 PO; +VENTAER INH
[2018-10-24] MEDS ORDERED: SYNT50TA PEG (09:47)
--- NOTE | 2018-10-24 10:30 | REP ---
Chest one-view HISTORY: Cough Comparison: 09/16/2017 Patchy density is present in the left lower lobe consistent with atelectasis or infiltrate. The right lung is clear. There is blunting of the left costophrenic angle due to pleural thickening or small pleural effusion. The heart is normal in size. The pulmonary vasculature is normal in appearance. Impression: 1. Left lower lobe atelectasis or infiltrate. 2. There is blunting of the left costophrenic angle due to pleural thickening or small pleural effusion. Electronically Signed by Roscoe Puente MD 10/24/2018 10:21 A
[2018-10-24 10:44] LABS: VENOUS HCO3 35.4 MEQ/L (23.0-27.0); VENOUS O2 SATURATION 74.8 % (60.0-80.0); VENOUS PARTIAL PRESSURE CO2 58.8 mmHg (38.0-50.0); VENOUS PARTIAL PRESSURE O2 40.6 mmHg (30.0-50.0); VENOUS PH 7.397 UNITS (7.330-7.430); VENOUS STANDARD HCO3 31.1 MEQ/L; VENOUS TOTAL CO2 37.2 MEQ/L (24.0-28.0)
[2018-10-24 10:47] LABS: BASO % 0.3 % (0.0-1.0); EOS # 0.1 10^3/uL (0.0-0.50); EOS % 0.4 % (0.0-3.0); HEMATOCRIT 50.3 % (42.0-52.0); HEMOGLOBIN 16.1 g/dl (13.5-17.5); LYMPH # 1.4 10^3/uL (1.5-4.5); LYMPH % 11.7 % (24.0-44.0); MEAN CORPUSCULAR HEMOGLOBIN 33.1 pg (27.0-33.0); MEAN CORPUSCULAR VOLUME 103.5 fl (80.0-96.0); MONO # 0.6 10^3/uL (0.0-0.8); MONO % 4.8 % (0.0-5.0); NEUTROPHILS # 9.7 10^3/uL (1.8-7.7); NEUTROPHILS % 82.4 % (36.0-66.0); PLATELET COUNT, AUTOMATED 278 10^3/uL (150-450); RED BLOOD COUNT 4.86 10^6/uL (4.30-6.10); WHITE BLOOD COUNT 11.8 10^3/uL (4.0-10.0)
--- NOTE | 2018-10-24 10:52 | REP ---
Soft tissue neck three used to lateral and single AP: The epiglottis is not hypertrophied. The prevertebral soft tissues are normal. There is no tonsillar enlargement. The subglottic trachea is unremarkable. There are multiple surgical clips in the soft tissues of the neck on the left. There is degenerative disc disease in the cervical spine C5-6 and C6-7. Impression: Essentially negative soft tissue neck. 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 Surgical clips in the soft tissues on the left. Electronically Signed by Todd Herrera MD 10/24/2018 10:44 A
[2018-10-24 11:04] LABS: INR 1.25; PROTHROMBIN TIME 15.9 SECONDS (12.1-14.4)
[2018-10-24] MEDS ORDERED: BISOPROLOL FUMARATE 10 MG TAB PO ONE (11:15)
[2018-10-24 11:23] LABS: ALBUMIN 2.7 GM/DL (3.2-5.2); ALT/SGPT 52 U/L (12-78); BILIRUBIN,DIRECT 0.2 MG/DL (0.0-0.2); BILIRUBIN,TOTAL 0.7 MG/DL (0.2-1.0); BLOOD UREA NITROGEN 29 MG/DL (7-18); CALCIUM LEVEL 9.5 MG/DL (8.8-10.2); CARBON DIOXIDE LEVEL 32 MEQ/L (21-32); CHLORIDE LEVEL 115 MEQ/L (98-107); CPK CREATINE PHOSPHOKINASE 77 U/L (39-308); GLOMERULAR FILTRATION RATE > 60.0 (>35); GLUCOSE, FASTING 99 MG/DL (70-100); POTASSIUM SERUM 4.3 MEQ/L (3.5-5.1); SODIUM LEVEL 153 MEQ/L (136-145); TOTAL PROTEIN 7.5 GM/DL (6.4-8.2); TROPONIN I 0.09 NG/ML (< 0.10)
[2018-10-24 11:27] LABS: DIGOXIN LEVEL 1.1 NG/ML (0.5-2.0); MB/CK RELATIVE INDEX 5.45 (< OR =4); NT-PRO BNP 1776 PG/ML (<450)
[2018-10-24] MEDS ORDERED: BISOPROLOL FUMARATE 5 MG TAB PO ONE (11:45)
[2018-10-24] MEDS ORDERED: PIPERACILLIN/TAZOBACTAM SOD 3.375 GM in D5W MINI-BAG PLUS 50 ML IV ONE (12:30)
--- NOTE | 2018-10-24 12:46 | REP ---
CT CHEST WITHOUT CONTRAST: 10/24/2018. COMPARISON: 05/24/2017 CT; AP portable chest today. CLINICAL HISTORY: Cough, dyspnea, stridor, history of carcinoma of the neck. Possible aspiration. Leukocytosis. FINDINGS: Noncontrast techniques were utilized. There is a small left pleural effusion and consolidative opacity with air bronchograms in the left lower lobe posterior and medial basal segments more than lateral basal segment. Debris is seen in the left mainstem bronchus just beyond the vida which does not have the appearance of a solid mass within the bronchus. There is no bronchial occlusion. Lower lobe segmental bronchi are patent. The left upper lobe and entire right lung are without infiltrate. There is no right effusion. No definite nodule although what can be hidden in the infiltrates in the right base. Heart not grossly enlarged. Left atrium is mildly prominent. There are coronary calcifications, calcifications in the aortic valve plane and at the aortic root as well as at the arch and descending aorta. No aneurysm. No mediastinal or hilar pathologic sized adenopathy. The bone windows show sternum, manubrium, visualized portions of clavicles, scapulae, humeri and ribs all intact and without acute fracture. Degenerative changes in the spine with mild thoracic kyphosis but no acute compression deformity of destructive lesion. Posterior elements intact. Upper abdomen shows that portion of liver intact with a cyst in the lateral segment left hepatic lobe up to 2 cm. No biliary dilatation. There are a few calcified gallstones in the dependent gallbladder, subcentimeter in size. The spleen is absent. Pancreas shows no mass or ductal dilatation in its visualized segments. No stones, fluid collection or peripancreatic adenopathy. Upper abdominal aorta has atherosclerotic calcifications without aneurysm and there is no evidence for hiatal hernia. There is a cyst off the medial aspect interpolar region of the left kidney up to 3.6 cm. No mass or hydronephrosis. Calcified arteries in the hilum on both sides. No adrenal lesion. Small bowel loops and colon grossly unremarkable. There is a gastrostomy feeding tube in the left upper quadrant as on the previous study. No gross hiatal hernia. IMPRESSION: 1. Findings suggest aspiration with dense consolidation of infiltrate in the left lower lobe with air bronchograms and with some debris in the left mainstem bronchus but without mass or adenopathy causing compression of the hilus or lower lobe bronchi on that side. 2. Gastrostomy feeding tube in the left upper quadrant unchanged. No gross hiatal hernia. 3. Lung cesar are otherwise grossly clear. No effusion or cadence edema. 4. Some left atrial enlargement, calcified aorta without aneurysm and coronary artery calcifications as before. Electronically Signed by Tom Cartwright MD 10/24/2018 08:39 P
--- NOTE | 2018-10-24 12:51 | REP ---
CT NECK WITHOUT CONTRAST: HISTORY: Stridor. COMPARISON: 05/26/2017 The naso-, shayan- and hypopharynx, larynx and subglottic trachea are normal in appearance. The parotid and right submandibular glands are normal in size and density. The left submandibular gland is not seen. The thyroid gland is atrophic. The thyroid gland is normal in density. Small lymph nodes less than 1 cm in size are present in the internal jugular chains, posterior triangles, and submandibular areas. Atherosclerotic calcification is present at the carotid bifurcations. Surgical clips are present in the left carotid space and lateral to the left thyroid lobe. Degenerative change is present in the cervical spine. The lung apices are clear. The visualized sinuses are clear. IMPRESSION: There is no neck mass or adenopathy. Electronically Signed by Roscoe Puente MD 10/24/2018 01:48 P
[2018-10-24] MEDS ORDERED: DIGO0.12 PEG (13:18)
--- NOTE | 2018-10-24 14:47 | ECGEPIP ---
Stationary ECG Study [facility] - ED Test Date: 2018-10-24 Pat Name: AALIYAH LAYTON Department: Room: - Gender: M [employer]: : [id number] Requested By: Dyan Hopkins Order Number: [id number] Reading MD: Dyan Hopkins Measurements Intervals Anthon Rate: 132 P: CO: 0 QRS: 7 QRSD: 89 T: 255 QT: 275 QTc: 408 Interpretive Statements ATRIAL FIBRILLATION WITH RAPID VENTRICULAR RESPONSE WITH ABERRANT CONDUCTION OR ANDI VENTRICULAR PREMATURE COMPLEXES ST DEVIATION AND MODERATE T-WAVE ABNORMALITY, CONSIDER LATERAL ISCHEMIA ST DEVIATION AND MODERATE T-WAVE ABNORMALITY, CONSIDER INFERIOR ISCHEMIA INCREASED RATE/ST CHANGES 09/16/17 Electronically Signed On 10-24-2018 14:47:13 EDT by Dyan Hopkins
[2018-10-24] MEDS: NS 0.45% 1,000 ML IV SCH (15:15)
--- NOTE | 2018-10-24 16:18 | HPE ---
DATE OF ADMISSION: 10/24/2018 An 78-year-old male with a past medical history of hypertension, hyperlipidemia, hypothyroidism, history of atrial fibrillation - on Eliquis, history of neck cancer, status post surgical excision with chemo and radiation therapy, with subsequent percutaneous endoscopic gastrostomy (PEG) placement and currently nothing by mouth status, presents to the emergency room with 3 days of cough with productive white sputum that is blood tinged. The patient has also a mild subjective feeling of fever, aches, chills, so he came to the emergency room (ER) for evaluation. He felt that he likely has an aspiration pneumonia, which he has had in the past. He does admit to trying to drink some water when he should not have, everything should have been administered via the PEG. Patient had a CT chest done by the ER attending, which showed aspiration with dense consolidation, infiltrate of the left lower lobe. The patient has been started on intravenous (IV) Zosyn and will be admitted for further management. He was also found to be hypernatremic and has been started on half normal saline at 125 mL an hour. PAST MEDICAL HISTORY: Neck cancer, status post surgical excision. Status post chemo and radiation therapy with subsequent PEG placement. History of CVA times two. Atrial fibrillation - on Eliquis. Hypertension. Hyperlipidemia. Hypothyroidism. ALLERGIES: He has drug allergies to [employer]. FAMILY HISTORY: Noncontributory. SOCIAL HISTORY: The patient is a former smoker, smoked two packs of cigarettes a day for 30 years, quit approximately 38 years ago. Denies alcohol or illicit drugs. MEDICATIONS: He takes at home are as follows: - albuterol as needed - apixaban 5 mg via PEG twice a day - aspirin 81 mg via PEG daily - atorvastatin 20 mg via PEG in the evening - digoxin 0.125 mcg via PEG daily - Jevity 1.5 Xander one can four times a day via PEG - Synthroid 50 mcg via PEG daily REVIEW OF SYSTEMS: Negative all ten major systems except what has been mentioned in the history of the present illness. Vital Signs: Blood pressure 147/68, heart rate 74, regular, respiratory rate is 19, temperature 97.3, oxygen saturation is 96% on one liter of nasal cannula. Head is atraumatic, normocephalic. Neck supple. No jugular venous distention (JVD). Lungs have scattered rhonchi. S1, S2 audible, No murmurs appreciated. Abdomen: Soft, positive bowel sounds. No pedal edema. Skin: Intact. Neurologic Examination: Patient awake, alert, oriented times three. LABORATORY: WBC 11.8, hemoglobin 16.1, hematocrit 50.3, platelets are 278,000. Sodium 153, potassium 4.3, chloride 115, CO2 is 32, anion gap 6, BUN 29, creatinine 0.8, lactic acid 1.9, glucose is 99. VBG: pH is 7.397. IMPRESSION: 1. Aspiration pneumonia. 2. Hypernatremia. PLAN: Patient to be admitted to medical-surgical floor. Will continue the patient on IV Zosyn 3.375 IV every 6 hours. Will get sputum cultures if possible and will continue nebulizer treatments necessary. As far as hypernatremia is concerned, will continue the patient on half normal saline 125 mL an hour, monitor sodium trends. Continue all his preadmission medications and will continue his care on the medical-surgical floor.
[2018-10-24] MEDS: PIPERACILLIN/TAZOBACTAM SOD 3.375 GM in D5W MINI-BAG PLUS 50 ML IV SCH (19:00)
[2018-10-24 20:15] VITALS: BP 153/79
[2018-10-24 22:00] VITALS: BP 149/71
[2018-10-25] MEDS: ATORVASTATIN 20 MG TAB PEG SCH ×2 (00:27→22:44)
[2018-10-25] MEDS: APIXABAN 5 MG TAB (ELIQUIS) PEG SCH ×3 (00:27→22:44)
[2018-10-25] MEDS: NS 0.45% 1,000 ML IV SCH ×4 (00:27→22:45)
[2018-10-25] MEDS: PIPERACILLIN/TAZOBACTAM SOD 3.375 GM in D5W MINI-BAG PLUS 50 ML IV SCH ×4 (01:20→18:33)
[2018-10-25 06:00] VITALS: BP 153/85
[2018-10-25 06:23] LABS: BASO % 0.4 % (0.0-1.0); EOS # 0.1 10^3/uL (0.0-0.50); EOS % 1.1 % (0.0-3.0); HEMATOCRIT 43.6 % (42.0-52.0); LYMPH # 1.6 10^3/uL (1.5-4.5); LYMPH % 14.1 % (24.0-44.0); MEAN CORPUSCULAR HEMOGLOBIN 33.1 pg (27.0-33.0); MEAN CORPUSCULAR HGB CONC 31.7 g/dl (32.0-36.5); MEAN CORPUSCULAR VOLUME 104.6 fl (80.0-96.0); MONO # 0.6 10^3/uL (0.0-0.8); MONO % 5.3 % (0.0-5.0); NEUTROPHILS # 8.8 10^3/uL (1.8-7.7); NEUTROPHILS % 78.6 % (36.0-66.0); PLATELET COUNT, AUTOMATED 358 10^3/uL (150-450); RED BLOOD COUNT 4.17 10^6/uL (4.30-6.10); WHITE BLOOD COUNT 11.2 10^3/uL (4.0-10.0)
[2018-10-25 06:30] LABS: HEMOGLOBIN 13.8 g/dl (13.5-17.5)
[2018-10-25] MEDS: LEVOTHYROXINE 50MCG TABLET (0.05MG) PEG SCH (06:30)
[2018-10-25 06:53] LABS: BLOOD UREA NITROGEN 32 MG/DL (7-18); CALCIUM LEVEL 8.5 MG/DL (8.8-10.2); CARBON DIOXIDE LEVEL 32 MEQ/L (21-32); CHLORIDE LEVEL 114 MEQ/L (98-107); CREATININE FOR GFR 0.96 MG/DL (0.70-1.30); GLOMERULAR FILTRATION RATE > 60.0 (>35); GLUCOSE, FASTING 140 MG/DL (70-100); POTASSIUM SERUM 3.6 MEQ/L (3.5-5.1); SODIUM LEVEL 150 MEQ/L (136-145)
[2018-10-25] MEDS: DIGOXIN INJ 0.5 MG/2 ML AMP (J1160) IV SCH (09:26)
[2018-10-25] MEDS: BISOPROLOL FUMARATE 10 MG TAB PEG SCH (09:27)
[2018-10-25] MEDS: ASPIRIN 81 MG CHEW TABLET PEG SCH (12:00)
[2018-10-25 14:00] VITALS: BP 118/71
--- NOTE | 2018-10-25 21:23 | IPN ---
DATE: 10/25/2018 SUBJECTIVE: Patient is seen and examined in the room today. Patient continues to complain of oral secretions. Denies any fever or chills. OBJECTIVE: VITAL SIGNS: Temperature is 98.1, pulse 70, respirations 19, blood pressure 152/85, pulse ox 98% with 2 liters nasal cannula. GENERAL: Patient is alert, awake. HEENT: Very dry oral mucosa. Poor dentition. Normocephalic. CARDIOVASCULAR: Positive S1, S2, regular rate. LUNGS: Clear to auscultation bilaterally. ABDOMEN: PEG in place. Soft. Bowel sounds present. EXTREMITIES: No edema. LABORATORY DATA: WBC 11.2, hemoglobin is 13.8, hematocrit is 43.6, platelet count is 356. Sodium 150, potassium 3.6, chloride is 114, carbon dioxide 32. BUN 32, creatinine 0.96. GFR greater than 60, fasting glucose 140. Calcium 8.5. IMPRESSION: 1. Aspiration pneumonia. CT of the chest was performed demonstrating findings suggestive of aspiration with dense consolidation of infiltrate in the left lower lobe and with some debris in the left mainstem bronchus. Patient is on Zosyn. 2. History of neck cancer. Status post surgical excision and chemoradiation therapy. Patient currently has a PEG tube. Continue with PEG tube feeding. 3. History of cerebrovascular accident (CVA). On aspirin and Lipitor. 4. Atrial fibrillation. On Zebeta, on digoxin, on Eliquis. 5. Hypertension. Blood pressure in satisfactory range. Continue Zebeta. 6. Hypothyroidism. On Synthroid. 7. Deep venous thrombosis (DVT) prophylaxis. On Eliquis. MTDD
[2018-10-25 22:00] VITALS: BP 123/67
[2018-10-26] MEDS: PIPERACILLIN/TAZOBACTAM SOD 3.375 GM in D5W MINI-BAG PLUS 50 ML IV SCH ×4 (00:05→18:03)
[2018-10-26 06:00] VITALS: BP 174/86
[2018-10-26 06:24] LABS: HEMATOCRIT 40.8 % (42.0-52.0); HEMOGLOBIN 13.3 g/dl (13.5-17.5); MEAN CORPUSCULAR HEMOGLOBIN 33.3 pg (27.0-33.0); MEAN CORPUSCULAR HGB CONC 32.6 g/dl (32.0-36.5); PLATELET COUNT, AUTOMATED 344 10^3/uL (150-450); WHITE BLOOD COUNT 13.2 10^3/uL (4.0-10.0)
[2018-10-26] MEDS: LEVOTHYROXINE 50MCG TABLET (0.05MG) PEG SCH (06:26)
[2018-10-26 06:51] LABS: BLOOD UREA NITROGEN 25 MG/DL (7-18); CALCIUM LEVEL 8.5 MG/DL (8.8-10.2); CARBON DIOXIDE LEVEL 30 MEQ/L (21-32); CHLORIDE LEVEL 112 MEQ/L (98-107); CREATININE FOR GFR 0.78 MG/DL (0.70-1.30); GLOMERULAR FILTRATION RATE > 60.0 (>35); GLUCOSE, FASTING 80 MG/DL (70-100); MAGNESIUM LEVEL 2.3 MG/DL (1.8-2.4); POTASSIUM SERUM 4.8 MEQ/L (3.5-5.1); SODIUM LEVEL 146 MEQ/L (136-145)
[2018-10-26] MEDS: ASPIRIN 81 MG CHEW TABLET PEG SCH (10:53)
[2018-10-26] MEDS: DIGOXIN INJ 0.5 MG/2 ML AMP (J1160) IV SCH (10:56)
[2018-10-26] MEDS: BISOPROLOL FUMARATE 10 MG TAB PEG SCH (10:56)
[2018-10-26] MEDS: APIXABAN 5 MG TAB (ELIQUIS) PEG SCH ×2 (10:56→22:23)
[2018-10-26] MEDS: NS 0.45% 1,000 ML IV SCH ×2 (10:57→15:15)
[2018-10-26 11:11] LABS: C REACTIVE PROTEIN QUANTITATIV 1.46 MG/DL (0.00-0.30); FREE T4 0.96 NG/DL (0.76-1.46)
[2018-10-26 14:00] VITALS: BP 154/81
--- NOTE | 2018-10-26 18:54 | IPNPDOC ---
Text Note Date of Service The patient was seen on 10/26/18. NOTE SUBJECTIVE: Patient is seen and examined in the room today. Patient feels his breathing is improving. Denies any fever or chills. OBJECTIVE: VITAL SIGNS: Listed below. GENERAL: Patient is alert, awake. HEENT: Very dry oral mucosa. Poor dentition. Normocephalic. CARDIOVASCULAR: Positive S1, S2, regular rate. LUNGS: Clear to auscultation bilaterally. ABDOMEN: PEG in place. Soft. Bowel sounds present. EXTREMITIES: No edema. LABORATORY DATA: Listed below. IMPRESSION: #. Aspiration pneumonia. - CT of the chest was performed demonstrating findings suggestive of aspiration with dense consolidation of infiltrate in the left lower lobe and with some debris in the left mainstem bronchus. - Patient is on Zosyn. Titrating oxygen as tolerated. #. History of neck cancer. - Status post surgical excision and chemoradiation therapy. Patient currently has a PEG tube. Continue with PEG tube feeding. #. History of cerebrovascular accident (CVA). On aspirin and Lipitor. #. Atrial fibrillation. On Zebeta, on digoxin, on Eliquis. #. Hypertension. Blood pressure in satisfactory range. Continue Zebeta. #. Hypothyroidism. On Synthroid. #. Deep venous thrombosis (DVT) prophylaxis. On Eliquis. VS,Fishbone, I+O VS, Fishbone, I+O Laboratory Tests 10/26/18 05:53 Red Blood Count 4.00 L, Mean Corpuscular Volume 102.0 H, Mean Corpuscular Hemoglobin 33.3 H, Mean Corpuscular Hemoglobin Concent 32.6, Red Cell Distribution Width 13.2, Calcium Level 8.5 L Vital Signs Date Time Temp Pulse Resp B/P (MAP) Pulse Ox O2 Delivery O2 Flow Rate FiO2 10/26/18 15:33 2.0 10/26/18 14:00 97.5 69 21 154/81 (105) 96 10/24/18 19:51 Nasal Cannula 10/24/18 10:00 98 I&O- Last 24 Hours up to 6 AM 10/26/18 06:00 Intake Total 4010 ml Output Total 475 ml Balance 3535 ml TEX WOMACK DO Oct 26, 2018 18:54
[2018-10-26] MEDS ORDERED: SALIVA SUBSTITUTE(MOUTHKOTE) BTL MT PRN (19:00)
[2018-10-26 22:00] VITALS: BP 163/62
[2018-10-26] MEDS: ATORVASTATIN 20 MG TAB PEG SCH (22:23)
[2018-10-27] MEDS: NS 0.45% 1,000 ML IV SCH (01:04)
[2018-10-27] MEDS: PIPERACILLIN/TAZOBACTAM SOD 3.375 GM in D5W MINI-BAG PLUS 50 ML IV SCH ×4 (01:04→21:52)
[2018-10-27 06:00] VITALS: BP 120/84
[2018-10-27] MEDS: LEVOTHYROXINE 50MCG TABLET (0.05MG) PEG SCH (06:08)
[2018-10-27 06:21] LABS: HEMATOCRIT 34.5 % (42.0-52.0); HEMOGLOBIN 11.6 g/dl (13.5-17.5); MEAN CORPUSCULAR HEMOGLOBIN 33.3 pg (27.0-33.0); MEAN CORPUSCULAR HGB CONC 33.6 g/dl (32.0-36.5); MEAN CORPUSCULAR VOLUME 99.1 fl (80.0-96.0); PLATELET COUNT, AUTOMATED 310 10^3/uL (150-450); RED BLOOD COUNT 3.48 10^6/uL (4.30-6.10); WHITE BLOOD COUNT 10.5 10^3/uL (4.0-10.0)
[2018-10-27 06:51] LABS: BLOOD UREA NITROGEN 18 MG/DL (7-18); CALCIUM LEVEL 7.5 MG/DL (8.8-10.2); CARBON DIOXIDE LEVEL 26 MEQ/L (21-32); CHLORIDE LEVEL 109 MEQ/L (98-107); CREATININE FOR GFR 0.65 MG/DL (0.70-1.30); GLOMERULAR FILTRATION RATE > 60.0 (>35); GLUCOSE, FASTING 88 MG/DL (70-100); MAGNESIUM LEVEL 2.2 MG/DL (1.8-2.4); POTASSIUM SERUM 3.9 MEQ/L (3.5-5.1); SODIUM LEVEL 139 MEQ/L (136-145)
[2018-10-27] MEDS: BISOPROLOL FUMARATE 10 MG TAB PEG SCH (09:32)
[2018-10-27] MEDS: APIXABAN 5 MG TAB (ELIQUIS) PEG SCH ×2 (09:34→21:52)
[2018-10-27] MEDS: DIGOXIN INJ 0.5 MG/2 ML AMP (J1160) IV SCH (09:34)
[2018-10-27] MEDS: ASPIRIN 81 MG CHEW TABLET PEG SCH (12:10)
[2018-10-27 14:00] VITALS: BP 139/71
--- NOTE | 2018-10-27 18:19 | IPNPDOC ---
Text Note Date of Service The patient was seen on 10/27/18. NOTE SUBJECTIVE: Patient is seen and examined in the room today. Patient feels his breathing is improving. Denies any fever or chills. Tolerated tube feeding. Denies aspiration. Patient feels saliva substitute is helping him. OBJECTIVE: VITAL SIGNS: Listed below. GENERAL: Patient is alert, awake. HEENT: Dry oral mucosa. Normocephalic. CARDIOVASCULAR: Positive S1, S2, regular rate. LUNGS: Clear to auscultation bilaterally. ABDOMEN: PEG in place. Soft. Bowel sounds present. EXTREMITIES: No edema. LABORATORY DATA: Listed below. IMPRESSION: #. Aspiration pneumonia. - CT of the chest was performed demonstrating findings suggestive of aspiration with dense consolidation of infiltrate in the left lower lobe and with some debris in the left mainstem bronchus. - Patient is on Zosyn. Titrating oxygen as tolerated. - Dietary consulted. Tube feeding regimen adjusted per recommendation. #. History of neck cancer. - Status post surgical excision and chemoradiation therapy. Patient currently has a PEG tube. Continue with PEG tube feeding. - Continue saliva substitute for comfort. #. History of cerebrovascular accident (CVA). On aspirin and Lipitor. #. Atrial fibrillation. On Zebeta, on digoxin, on Eliquis. #. Hypertension. Blood pressure in satisfactory range. Continue Zebeta. #. Hypothyroidism. On Synthroid. #. Deep venous thrombosis (DVT) prophylaxis. On Eliquis. VS,Fishbone, I+O VS, Fishbone, I+O Laboratory Tests 10/27/18 06:10 Red Blood Count 3.48 L, Mean Corpuscular Volume 99.1 H, Mean Corpuscular Hemog lobin 33.3 H, Mean Corpuscular Hemoglobin Concent 33.6, Red Cell Distribution Width 13.0, Calcium Level 7.5 L Vital Signs Date Time Temp Pulse Resp B/P (MAP) Pulse Ox O2 Delivery O2 Flow Rate FiO2 10/27/18 14:00 97.5 62 19 139/71 (93) 99 2.0 10/24/18 19:51 Nasal Cannula 10/24/18 10:00 98 I&O- Last 24 Hours up to 6 AM 10/27/18 06:00 Intake Total 2905 ml Output Total 300 ml Balance 2605 ml TEX WOMACK DO Oct 27, 2018 18:19
[2018-10-27] MEDS: ATORVASTATIN 20 MG TAB PEG SCH (21:52)
[2018-10-27 22:00] VITALS: BP 143/73
[2018-10-28] MEDS: PIPERACILLIN/TAZOBACTAM SOD 3.375 GM in D5W MINI-BAG PLUS 50 ML IV SCH ×4 (02:00→18:38)
[2018-10-28 06:00] VITALS: BP 171/67
[2018-10-28] MEDS: LEVOTHYROXINE 50MCG TABLET (0.05MG) PEG SCH (06:19)
[2018-10-28 06:58] LABS: HEMATOCRIT 42.8 % (42.0-52.0); MEAN CORPUSCULAR HEMOGLOBIN 32.9 pg (27.0-33.0); MEAN CORPUSCULAR HGB CONC 32.9 g/dl (32.0-36.5); PLATELET COUNT, AUTOMATED 358 10^3/uL (150-450); RED BLOOD COUNT 4.28 10^6/uL (4.30-6.10); WHITE BLOOD COUNT 13.1 10^3/uL (4.0-10.0)
[2018-10-28 07:02] LABS: HEMOGLOBIN 14.1 g/dl (13.5-17.5)
[2018-10-28 07:14] LABS: BLOOD UREA NITROGEN 13 MG/DL (7-18); CALCIUM LEVEL 8.5 MG/DL (8.8-10.2); CARBON DIOXIDE LEVEL 27 MEQ/L (21-32); CHLORIDE LEVEL 108 MEQ/L (98-107); GLOMERULAR FILTRATION RATE > 60.0 (>35); GLUCOSE, FASTING 79 MG/DL (70-100); MAGNESIUM LEVEL 2.3 MG/DL (1.8-2.4); POTASSIUM SERUM 4.5 MEQ/L (3.5-5.1); SODIUM LEVEL 140 MEQ/L (136-145)
[2018-10-28] MEDS: BISOPROLOL FUMARATE 10 MG TAB PEG SCH (08:36)
[2018-10-28] MEDS: DIGOXIN 0.125 MG TAB PEG SCH (08:36)
[2018-10-28] MEDS: APIXABAN 5 MG TAB (ELIQUIS) PEG SCH ×2 (08:36→21:40)
[2018-10-28] MEDS: ASPIRIN 81 MG CHEW TABLET PEG SCH (12:19)
[2018-10-28 14:00] VITALS: BP 174/81
--- NOTE | 2018-10-28 16:22 | IPNPDOC ---
Text Note Date of Service The patient was seen on 10/28/18. NOTE SUBJECTIVE: Patient is seen and examined in the room today. Patient does not feel breathing is improving in the last 24 hours. Denies any fever or chills. OBJECTIVE: VITAL SIGNS: Listed below. GENERAL: Patient is alert, awake. HEENT: Dry oral mucosa. Normocephalic. CARDIOVASCULAR: Positive S1, S2, regular rate. LUNGS: Clear to auscultation bilaterally. ABDOMEN: PEG in place. Soft. Bowel sounds present. EXTREMITIES: No edema. LABORATORY DATA: Listed below. IMPRESSION: #. Aspiration pneumonia. - CT of the chest was performed demonstrating findings suggestive of aspiration with dense consolidation of infiltrate in the left lower lobe and with some debris in the left mainstem bronchus. - Patient is on Zosyn. Titrating oxygen as tolerated. - Dietary consulted. Tube feeding regimen adjusted per recommendation. - Continue physical therapy. #. History of neck cancer. - Status post surgical excision and chemoradiation therapy. Patient currently has a PEG tube. Continue with PEG tube feeding. - Continue saliva substitute for comfort. #. History of cerebrovascular accident (CVA). On aspirin and Lipitor. #. Atrial fibrillation. On Zebeta, on digoxin, on Eliquis. #. Hypertension. Blood pressure in satisfactory range. Continue Zebeta. #. Hypothyroidism. On Synthroid. #. Deep venous thrombosis (DVT) prophylaxis. On Eliquis. VS,Fishbone, I+O VS,Fishbone, I+O VS, Fishbone, I+O Laboratory Tests 10/28/18 06:16 Red Blood Count 4.28 L, Mean Corpuscular Volume 100.0 H, Mean Corpuscular Hemoglobin 32.9, Mean Corpuscular Hemoglobin Concent 32.9, Red Cell Distribution Width 13.2, Calcium Level 8.5 L Vital Signs Date Time Temp Pulse Resp B/P (MAP) Pulse Ox O2 Delivery O2 Flow Rate FiO2 10/28/18 14:00 97.9 69 24 174/81 (112) 93 2.0 10/24/18 19:51 Nasal Cannula 10/24/18 10:00 98 I&O- Last 24 Hours up to 6 AM 10/28/18 06:00 Intake Total 860 ml Output Total 1050 ml Balance -190 ml TEX WOMACK DO Oct 28, 2018 16:22
[2018-10-28] MEDS ORDERED: guaiFENesin ER 600 MG TAB PO SCH (21:00)
[2018-10-28] MEDS: ATORVASTATIN 20 MG TAB PEG SCH (21:40)
[2018-10-28 22:00] VITALS: BP 163/92
[2018-10-28] MEDS ORDERED: guaiFENesin SYRUP 200 MG/10 ML UDC PO PRN (22:00)
[2018-10-29] MEDS: PIPERACILLIN/TAZOBACTAM SOD 3.375 GM in D5W MINI-BAG PLUS 50 ML IV SCH ×4 (01:36→18:35)
[2018-10-29 06:00] VITALS: BP 157/83
[2018-10-29] MEDS: LEVOTHYROXINE 50MCG TABLET (0.05MG) PEG SCH (06:55)
[2018-10-29 07:06] LABS: HEMOGLOBIN 13.1 g/dl (13.5-17.5); MEAN CORPUSCULAR HEMOGLOBIN 33.3 pg (27.0-33.0); MEAN CORPUSCULAR HGB CONC 33.6 g/dl (32.0-36.5); MEAN CORPUSCULAR VOLUME 99.2 fl (80.0-96.0); PLATELET COUNT, AUTOMATED 339 10^3/uL (150-450); RED BLOOD COUNT 3.93 10^6/uL (4.30-6.10); WHITE BLOOD COUNT 11.8 10^3/uL (4.0-10.0)
[2018-10-29 07:23] LABS: BLOOD UREA NITROGEN 11 MG/DL (7-18); CALCIUM LEVEL 8.2 MG/DL (8.8-10.2); CARBON DIOXIDE LEVEL 28 MEQ/L (21-32); CHLORIDE LEVEL 107 MEQ/L (98-107); CREATININE FOR GFR 0.62 MG/DL (0.70-1.30); GLOMERULAR FILTRATION RATE > 60.0 (>35); GLUCOSE, FASTING 80 MG/DL (70-100); MAGNESIUM LEVEL 2.2 MG/DL (1.8-2.4); SODIUM LEVEL 139 MEQ/L (136-145)
[2018-10-29] MEDS: APIXABAN 5 MG TAB (ELIQUIS) PEG SCH (08:51)
[2018-10-29] MEDS: guaiFENesin SYRUP 200 MG/10 ML UDC PO SCH ×2 (08:51→21:22)
[2018-10-29] MEDS: DIGOXIN 0.125 MG TAB PEG SCH (08:51)
[2018-10-29] MEDS: BISOPROLOL FUMARATE 10 MG TAB PEG SCH (08:52)
[2018-10-29] MEDS ORDERED: ALBUTEROL SULFATE 2.5 MG/0.5 ML INH NEB SOLN NEB PRN (10:45)
--- NOTE | 2018-10-29 11:31 | REP ---
CT CHEST WITHOUT CONTRAST: HISTORY: Pneumonia. COMPARISON: 10/24/2018 Parenchymal density is present in the left lower lobe consistent with an infiltrate that is increased compared to the previous study. A small area of atelectasis is present in the right lower lobe. A moderate size left pleural effusion is present that has increased compared to the previous study. A small right pleural effusion is present. The cardiac silhouette is enlarged. Atherosclerotic calcification is present in the thoracic aorta. There is no aneurysm. Small lymph nodes less than 1 cm in size are present in the mediastinum. Degenerative change is present in the thoracic spine. A 2 cm cyst is present in the left lobe of the liver. Calcifications are present in the gallbladder consistent with cholelithiasis. A 3 cm cyst is present in the left kidney. A gastrostomy tube is present in the stomach. IMPRESSION: 1. Left lower lobe infiltrate increased compared to the previous study. 2. Small area of right lower lobe atelectasis. 3. Moderate size left pleural effusion increased compared to the previous study. 4. Small right pleural effusion. 5. 2 cm liver cyst. 6. Cholelithiasis. 7. 3 cm left renal cyst. Electronically Signed by Roscoe Puente MD 10/29/2018 11:36 A
[2018-10-29] MEDS: ASPIRIN 81 MG CHEW TABLET PEG SCH (12:45)
[2018-10-29 13:38] LABS: NT-PRO BNP 6035 PG/ML (<450)
--- NOTE | 2018-10-29 13:55 | IPNPDOC ---
Text Note Date of Service The patient was seen on 10/29/18. NOTE SUBJECTIVE: Patient is seen and examined in the room today. Patient still does not feels breathing is improving. Denies any fever or chills. I have discussed with patient's family members. OBJECTIVE: VITAL SIGNS: Listed below. GENERAL: Patient is alert, awake. HEENT: Dry oral mucosa. Normocephalic. CARDIOVASCULAR: Positive S1, S2, regular rate. LUNGS: Clear to auscultation bilaterally. ABDOMEN: PEG in place. Soft. Bowel sounds present. EXTREMITIES: No edema. LABORATORY DATA: Listed below. IMPRESSION: #. Acute respiratory distress. - Secondary to aspiration PNA and possible fluid overload. - On admission, CT of the chest was performed demonstrating findings suggestive of aspiration with dense consolidation of infiltrate in the left lower lobe and with some debris in the left mainstem bronchus. Patient has been on Zosyn. Sputum color changed from yellow to white. - No improvement of breathing noted. Repeated CT chest performed. Patient has contrast allergy (Severe rash). CT demonstrated increased pleural effusion. - Hold eliquis for possible thoracentesis. Pleural fluid analysis will be ordered. - No prior history of CHF. No on diuretic at home. BNP is elevated. Trial of diuretic. Follow up with Echocardiogram. - Continue physical therapy. #. History of neck cancer. - Status post surgical excision and chemoradiation therapy. Patient currently stack s a PEG tube. Continue with PEG tube feeding. - Continue saliva substitute for comfort. - Per family, cancer has been in remission. #. History of cerebrovascular accident (CVA). On aspirin and Lipitor. #. Atrial fibrillation. On Zebeta, on digoxin. Eliquis on hold for thoracentesis. #. Hypertension. Blood pressure in satisfactory range. Continue Zebeta. #. Hypothyroidism. On Synthroid. #. Deep venous thrombosis (DVT) prophylaxis. On CARMITA. VS,Fishbone, I+O VS, Fishbone, I+O Laboratory Tests 10/29/18 06:12 Red Blood Count 3.93 L, Mean Corpuscular Volume 99.2 H, Mean Corpuscular Hemoglobin 33.3 H, Mean Corpuscular Hemoglobin Concent 33.6, Red Cell Distribution Width 13.2, Calcium Level 8.2 L Vital Signs Date Time Temp Pulse Resp B/P (MAP) Pulse Ox O2 Delivery O2 Flow Rate FiO2 10/29/18 08:52 64 157/83 10/29/18 06:00 98.3 20 100 3.0 10/24/18 19:51 Nasal Cannula 10/24/18 10:00 98 I&O- Last 24 Hours up to 6 AM 10/29/18 06:00 Intake Total 2060 ml Output Total 1190 ml Balance 870 ml TEX WOMACK DO Oct 29, 2018 13:55
[2018-10-29 14:00] VITALS: BP 149/68
[2018-10-29] MEDS ORDERED: FUROSEMIDE 40 MG/4 ML VIAL (J1940) IV ONE (14:00)
[2018-10-29 20:15] LABS: CLOSTRIDIUM DIFFICILE PCR NEGATIVE (NEGATIVE)
[2018-10-29] MEDS: ATORVASTATIN 20 MG TAB PEG SCH (21:22)
[2018-10-30] MEDS: PIPERACILLIN/TAZOBACTAM SOD 3.375 GM in D5W MINI-BAG PLUS 50 ML IV SCH ×4 (01:03→19:03)
[2018-10-30 06:00] VITALS: BP 156/81
[2018-10-30] MEDS: LEVOTHYROXINE 50MCG TABLET (0.05MG) PEG SCH (06:54)
[2018-10-30 06:58] LABS: HEMATOCRIT 37.3 % (42.0-52.0); HEMOGLOBIN 12.6 g/dl (13.5-17.5); MEAN CORPUSCULAR HEMOGLOBIN 33.8 pg (27.0-33.0); MEAN CORPUSCULAR HGB CONC 33.8 g/dl (32.0-36.5); PLATELET COUNT, AUTOMATED 336 10^3/uL (150-450); RED BLOOD COUNT 3.73 10^6/uL (4.30-6.10); WHITE BLOOD COUNT 11.3 10^3/uL (4.0-10.0)
[2018-10-30 07:24] LABS: BLOOD UREA NITROGEN 12 MG/DL (7-18); CALCIUM LEVEL 8.1 MG/DL (8.8-10.2); CARBON DIOXIDE LEVEL 30 MEQ/L (21-32); CHLORIDE LEVEL 104 MEQ/L (98-107); CREATININE FOR GFR 0.63 MG/DL (0.70-1.30); GLOMERULAR FILTRATION RATE > 60.0 (>35); GLUCOSE, FASTING 86 MG/DL (70-100); MAGNESIUM LEVEL 2.1 MG/DL (1.8-2.4); POTASSIUM SERUM 3.5 MEQ/L (3.5-5.1); SODIUM LEVEL 138 MEQ/L (136-145)
[2018-10-30 07:55] LABS: INR 1.32; PROTHROMBIN TIME 16.6 SECONDS (12.1-14.4)
[2018-10-30] MEDS: DIGOXIN 0.125 MG TAB PEG SCH (08:06)
[2018-10-30] MEDS: guaiFENesin SYRUP 200 MG/10 ML UDC PO SCH ×2 (08:06→21:05)
[2018-10-30 08:09] VITALS: BP 98/60
[2018-10-30] MEDS: BISOPROLOL FUMARATE 10 MG TAB PEG SCH (08:15)
[2018-10-30] MEDS: ASPIRIN 81 MG CHEW TABLET PEG SCH (13:42)
[2018-10-30 13:44] LABS: PH BODY FLUID 7.637 UNITS (NOT ESTABLISHED); SOURCE, BODY FLUID pH THORACENTES
[2018-10-30 13:49] LABS: LDH LACTATE DEHYDROGENASE 200 U/L (87-241)
[2018-10-30 14:00] VITALS: BP 97/54
[2018-10-30 14:08] LABS: APPEARANCE, BODY FLUID HAZY (CLEAR); PLEURAL FL COLOR ORANGE (COLORLESS); SOURCE, BODY FLUID PLEURAL
[2018-10-30 14:11] LABS: AMYLASE, BODY FLUID 53 U/L (NOT ESTABLISHED); CHOLESTEROL, BODY FLUID < 50 MG/DL (NOT ESTABLISHED); LDH, BODY FLUID 157 U/L (NOT ESTABLISHED); SOURCE, BODY FLUID ALBUMIN PLEURAL; SOURCE, BODY FLUID AMYLASE THORACENTESIS; SOURCE, BODY FLUID CHOL THORACENTESIS; SOURCE, BODY FLUID GLUCOSE THORACENTESIS; SOURCE, BODY FLUID LDH THORACENTESIS; SOURCE, BODY FLUID TOT PROTEIN THORACENTESIS; SOURCE, BODY FLUID TRIG THORACENTESIS; TOTAL PROTEIN, BODY FLUID 2.9 G/DL (NOT ESTABLISHED); TRIGLYCERIDE, BODY FLUID 9 MG/DL (NOT ESTABLISHED)
--- NOTE | 2018-10-30 14:15 | REP ---
Chest one-view HISTORY: Thoracentesis Comparison: 10/24/2018 Patchy density is present in the left lower lobe consistent with atelectasis or infiltrate unchanged compared to the previous study. The right lung is clear. There is blunting of the left costophrenic angle due to pleural thickening or small pleural effusion. The heart is normal in size. The pulmonary vasculature is normal in appearance. Impression: 1. Left lower lobe atelectasis or infiltrate unchanged compared to the previous study. 2. There is blunting of the left costophrenic angle due to pleural thickening or small pleural effusion unchanged compared to the previous study. Electronically Signed by Roscoe Puente MD 10/30/2018 02:08 P
[2018-10-30 14:56] LABS: ALBUMIN 2.2 GM/DL (3.2-5.2); ALT/SGPT 21 U/L (12-78); BILIRUBIN,DIRECT 0.2 MG/DL (0.0-0.2); BILIRUBIN,TOTAL 0.5 MG/DL (0.2-1.0); TOTAL PROTEIN 6.4 GM/DL (6.4-8.2)
--- NOTE | 2018-10-30 16:13 | IPNPDOC ---
Text Note Date of Service The patient was seen on 10/30/18. NOTE SUBJECTIVE: Patient is seen and examined in the room multiple times. Patient agrees for thoracentesis. Denies any fever or chills. OBJECTIVE: VITAL SIGNS: Listed below. GENERAL: Patient is alert, awake. HEENT: Dry oral mucosa. Normocephalic. CARDIOVASCULAR: Positive S1, S2, regular rate. LUNGS: Decreased lung sound at bases. Clear to auscultation bilaterally. ABDOMEN: PEG in place. Soft. Bowel sounds present. EXTREMITIES: No edema. LABORATORY DATA: Listed below. IMPRESSION: #. Acute respiratory distress. - Secondary to aspiration PNA and possible fluid overload. - On admission, CT of the chest was performed demonstrating findings suggestive of aspiration with dense consolidation of infiltrate in the left lower lobe and with some debris in the left mainstem bronchus. Patient has been on antibiotic for aspiration PNA. Sputum color changed from yellow to white. - No improvement of breathing noted. Repeated CT chest performed. Patient has contrast allergy (Severe rash). CT demonstrated increased pleural effusion. - Hold eliquis. Thoracentesis on 10/30/18. Follow up with fluid analysis. - Patient denies history of CHF. No on diuretic at home. BNP is elevated. Trial of diuretic. Decreased free water given between the tube feeding. Follow up with Echocardiogram. - Continue physical therapy. #. History of neck cancer. - Status post surgical excision and chemoradiation therapy. Patient currently has a PEG tube. Continue with PEG tube feeding. - Continue saliva substitute for comfort. - Per family, cancer has been in remission. #. History of cerebrovascular accident (CVA). On aspirin and Lipitor. #. Atrial fibrillation. On Zebeta, on digoxin. Eliquis on hold for thoracentesis. #. Hypertension. Blood pressure in satisfactory range. Continue Zebeta. #. Hypothyroidism. On Synthroid. #. Deep venous thrombosis (DVT) prophylaxis. On CARMITA. VS,Fishbone, I+O VS, Fishbone, I+O Laboratory Tests 10/30/18 06:14 Red Blood Count 3.73 L, Mean Corpuscular Volume 100.0 H, Mean Corpuscular Hemoglobin 33.8 H, Mean Corpuscular Hemoglobin Concent 33.8, Red Cell Distribution Width 13.4, Calcium Level 8.1 L Vital Signs Date Time Temp Pulse Resp B/P (MAP) Pulse Ox O2 Delivery O2 Flow Rate FiO2 10/30/18 14:00 98.2 76 17 97/54 (68) 100 5.0 10/24/18 19:51 Nasal Cannula 10/24/18 10:00 98 I&O- Last 24 Hours up to 6 AM 10/30/18 06:00 Intake Total 1810 ml Output Total 2065 ml Balance -255 ml TEX WOMACK DO Oct 30, 2018 16:13
--- NOTE | 2018-10-30 16:46 | REP ---
Chest one-view HISTORY: Shortness of breath Comparison: 01:19 p.m. 10/30/2018 Patchy density is present in the left lower lobe consistent with atelectasis or infiltrate that is increased compared to the previous study. The right lung is clear. There is blunting of the left costophrenic angle due to pleural thickening or a small pleural effusion unchanged compared to the previous study. The heart is normal in size. The pulmonary vasculature is normal in appearance. Impression: 1. Left lower lobe atelectasis or infiltrate increased compared to the previous study. 2. There is blunting of the left costophrenic angle due to pleural thickening or small pleural effusion unchanged compared to the previous study. Electronically Signed by Roscoe Puente MD 10/30/2018 04:37 P
--- NOTE | 2018-10-30 18:48 | RO ---
DATE OF PROCEDURE: 10/30/2018 PREPROCEDURE DIAGNOSIS: Pleural effusion. POSTPROCEDURE DIAGNOSIS: Pleural effusion. PROCEDURE: Left-sided thoracentesis. SURGEON: Ana Maria Livingston MD [employer]ATION WORKER: None. ANESTHESIA: 1% local lidocaine. SEDATION: None. VENTILATION: 3 liters nasal cannula. ESTIMATED BLOOD LOSS: Minimum. DESCRIPTION OF PROCEDURE: Consent was obtained. Risks and benefits explained. Time out was done. Site was cleaned. Ultrasound was used to locate the patient's pleural effusion, area was marked, site was cleaned with Chloraprep and covered in the usual manner. Subsequently, 1% lidocaine was first injected subcutaneously at the area right above patient's rib. Then, further injection was done deep with negative pressure; once fluid was witnessed, needle was pulled backwards and lidocaine was infused on the track. Skin was nicked with a scalpel and subsequently introducer needle was inserted with negative pressure; once the fluid was obtained, plastic catheter was slowly advanced over the introducer needle into the patient's thoracic cavity and at the same time introducer needle was removed. Then, catheter was left in the patient's thoracic cavity and connected to the tubes and pinkish cloudy fluid was removed, a total of 500 mL was removed. Procedure was terminated when fluid had stopped and fluid was sent off for testing. The patient was asked to do expirations by verbalizing the letter e for a prolonged period of time when the catheter was removed. Subsequently, a dressing was placed on the patient's back. The patient tolerated the procedure with no complications. X-ray was ordered to confirm, to make sure patient did not suffer any complications. Patient tolerated the procedure. GUERLINE
[2018-10-30] MEDS: ATORVASTATIN 20 MG TAB PEG SCH (21:06)
--- NOTE | 2018-10-30 21:15 | ECHO ---
DATE OF PROCEDURE: 10/30/2018 REFERRING PHYSICIAN: Dr. Temitope Fletcher INDICATION: Dyspnea. HEIGHT: 166 cm. WEIGHT: 59.1 kg. 2D MEASUREMENTS: Aortic root: 3.1 cm Left atrium: 4.5 cm Ventricular septum: 1.27 cm Posterior wall: 1.31 cm Left ventricle diastole: 3.9 cm LVOT: 2.1 cm Inferior vena cava: 1.6 cm DOPPLER MEASUREMENTS: Trace aortic regurgitation. No aortic stenosis. Aortic valve velocity: 155 cm/s Mild mitral regurgitation. Very mild tricuspid regurgitation. Estimated right ventricle systolic pressure: 28 mmHg assuming a pressure of 5 mmHg. Mild pulmonic regurgitation. Pulmonary artery systolic pressure: 27 mmHg by pulmonary acceleration time method. DESCRIPTION: Rhythm was atrial fibrillation with controlled ventricular response. No pericardial effusion. This was a 2D, M-mode, color flow Doppler and pulse wave Doppler examination and included mitral annular tissue Doppler. Image quality was adequate. CONCLUSIONS: 1. Mild concentric left ventricular hypertrophy. Normal regional left ventricular (LV) wall motion and wall thickening. Normal LV systolic function. Left ventricular ejection fraction (LVEF) 65% by visual estimate. Unable to adequately determine LV diastolic function in the setting of atrial fibrillation. 2. Moderate left atrial dilatation by visual assessment. 3. Moderate focal thickening and focal calcific deposits of a 3-cusp aortic valve. Trace aortic regurgitation. No aortic stenosis. 4. Moderate mitral annular calcification. Mild mitral regurgitation. No mitral stenosis.
[2018-10-30 22:00] VITALS: BP 112/60
[2018-10-31] MEDS: PIPERACILLIN/TAZOBACTAM SOD 3.375 GM in D5W MINI-BAG PLUS 50 ML IV SCH ×3 (00:53→12:33)
[2018-10-31 06:00] VITALS: BP 178/78
[2018-10-31] MEDS: LEVOTHYROXINE 50MCG TABLET (0.05MG) PEG SCH (06:11)
[2018-10-31 06:29] LABS: HEMATOCRIT 37.3 % (42.0-52.0); HEMOGLOBIN 12.4 g/dl (13.5-17.5); MEAN CORPUSCULAR HEMOGLOBIN 33.3 pg (27.0-33.0); MEAN CORPUSCULAR HGB CONC 33.2 g/dl (32.0-36.5); MEAN CORPUSCULAR VOLUME 100.3 fl (80.0-96.0); PLATELET COUNT, AUTOMATED 327 10^3/uL (150-450); RED BLOOD COUNT 3.72 10^6/uL (4.30-6.10)
[2018-10-31 06:45] LABS: BLOOD UREA NITROGEN 12 MG/DL (7-18); C REACTIVE PROTEIN QUANTITATIV 2.18 MG/DL (0.00-0.30); CALCIUM LEVEL 8.2 MG/DL (8.8-10.2); CARBON DIOXIDE LEVEL 30 MEQ/L (21-32); CHLORIDE LEVEL 106 MEQ/L (98-107); GLOMERULAR FILTRATION RATE > 60.0 (>35); GLUCOSE, FASTING 88 MG/DL (70-100); MAGNESIUM LEVEL 2.3 MG/DL (1.8-2.4); POTASSIUM SERUM 3.7 MEQ/L (3.5-5.1); SODIUM LEVEL 139 MEQ/L (136-145)
[2018-10-31] MEDS: DIGOXIN 0.125 MG TAB PEG SCH (08:55)
[2018-10-31] MEDS: BISOPROLOL FUMARATE 10 MG TAB PEG SCH (08:58)
[2018-10-31] MEDS: guaiFENesin SYRUP 200 MG/10 ML UDC PO SCH ×2 (08:58→21:30)
[2018-10-31 09:04] VITALS: BP 135/63
[2018-10-31] MEDS: ASPIRIN 81 MG CHEW TABLET PEG SCH (12:00)
[2018-10-31 12:54] VITALS: BP 128/71
[2018-10-31 14:00] VITALS: BP 133/73
--- NOTE | 2018-10-31 16:36 | IPNPDOC ---
Subjective Date Seen The patient was seen on 10/31/18. Subjective Chief Complaint/HPI Patient seen and examined at the bedside. Noted to be ambulating with PT in the hallways. States that his respiratory status is improved following thoracentesis. Objective Physical Examination General Exam: Positive: Alert, Cooperative, No Acute Distress ENT Exam: Positive: Atraumatic, Mucous membr. moist/pink Neck Exam: Negative: JVD Chest Exam: Positive: Diminished Heart Exam: Positive: Rate Normal, Normal S1, Normal S2 Abdomen Exam: Positive: Soft; Negative: Tenderness Extremity Exam: Negative: Tenderness Assessment /Plan Plan/VTE VTE Prophylaxis Ordered?: Yes Plan Acute Respiratory Distress 2/2 Aspiration Pneumonia Secondary to aspiration PNA, fluid overload. s/p Thoracentesis on 10/30/18 with removal of 500 cc's of fluid--respiratory status improved this AM Echocardiogram notable for preserved EF, indeterminable Diastolic Function 2/2 underlying A-Fib We will continue physical therapy at this time for functional optimization History of Neck Cancer. s/p Surgical Excision and Chemoradiation Therapy. s/p PEG tube. Continue with PEG tube feeding. Continue saliva substitute for comfort. History of cerebrovascular accident (CVA) Cont Aspirin and Lipitor. Atrial fibrillation Cont on Eliquis, Zebeta, on Digoxin Hypertension Continue Zebeta. Hypothyroidism Cont Synthroid. Deep venous thrombosis (DVT) prophylaxis On Eliquis VS, I&O, 24H, Fishbone Vital Signs/I&O Vital Signs Date Time Temp Pulse Resp B/P (MAP) Pulse Ox O2 Delivery O2 Flow Rate FiO2 10/31/18 14:00 98.4 74 18 133/73 (93) 98 1.0 I&O- Last 24 Hours up to 6 AM 10/31/18 06:00 Intake Total 1498 ml Output Total 1570 ml Balance -72 ml Laboratory Data 24H LABS Laboratory Tests 2 10/31/18 05:53: Nucleated Red Blood Cells % (auto) 0.0, Anion Gap 3L, Glomerular Filtration Rate > 60.0, Blood Urea Nitrogen 12, Creatinine 0.70, Sodium Level 139, Potassium Level 3.7, Chloride Level 106, Carbon Dioxide Level 30, Calcium Level 8.2L, Magnesium Level 2.3, C-Reactive Protein, Quantitative 2.18H CBC/BMP Laboratory Tests 10/31/18 05:53 Red Blood Count 3.72 L, Mean Corpuscular Volume 100.3 H, Mean Corpuscular Hemoglobin 33.3 H, Mean Corpuscular Hemoglobin Concent 33.2, Red Cell Distribution Width 13.6, Calcium Level 8.2 L Microbiology Microbiology 10/24/18 Blood Culture - Final, Complete NO GROWTH AFTER 5 DAYS 10/24/18 Blood Culture - Final, Complete NO GROWTH AFTER 5 DAYS 10/30/18 Fungal Smear, Received Pending 10/30/18 Fungal Culture, Received Pending 10/30/18 Acid Fast Stain, Received Pending 10/30/18 Mycobacterial Culture, Received Pending 10/30/18 Gram Stain - Final, Resulted 10/30/18 Anaerobic Culture, Resulted Pending 10/30/18 Body Fluid Culture, Received Pending 10/29/18 Gram Stain - Final, Complete 10/29/18 Sputum Culture - Final, Complete 10/24/18 Respiratory Virus Panel (PCR) (ZULY) - Final, Complete ALEJO ONTIVEROS MD Oct 31, 2018 16:36
[2018-10-31] MEDS: ATORVASTATIN 20 MG TAB PEG SCH (21:30)
[2018-10-31] MEDS: APIXABAN 5 MG TAB (ELIQUIS) PEG SCH (21:30)
[2018-10-31 22:00] VITALS: BP 166/76
[2018-11-01] MEDS: LEVOTHYROXINE 50MCG TABLET (0.05MG) PEG SCH (05:45)
[2018-11-01 06:00] VITALS: BP 157/72
[2018-11-01 06:15] LABS: HEMATOCRIT 40.1 % (42.0-52.0); MEAN CORPUSCULAR HEMOGLOBIN 33.1 pg (27.0-33.0); MEAN CORPUSCULAR HGB CONC 32.4 g/dl (32.0-36.5); PLATELET COUNT, AUTOMATED 360 10^3/uL (150-450); RED BLOOD COUNT 3.93 10^6/uL (4.30-6.10); WHITE BLOOD COUNT 10.8 10^3/uL (4.0-10.0)
[2018-11-01 06:42] LABS: BLOOD UREA NITROGEN 12 MG/DL (7-18); C REACTIVE PROTEIN QUANTITATIV 1.76 MG/DL (0.00-0.30); CALCIUM LEVEL 8.9 MG/DL (8.8-10.2); CARBON DIOXIDE LEVEL 31 MEQ/L (21-32); CHLORIDE LEVEL 106 MEQ/L (98-107); CREATININE FOR GFR 0.69 MG/DL (0.70-1.30); GLOMERULAR FILTRATION RATE > 60.0 (>35); GLUCOSE, FASTING 90 MG/DL (70-100); MAGNESIUM LEVEL 2.3 MG/DL (1.8-2.4); SODIUM LEVEL 140 MEQ/L (136-145)
[2018-11-01] MEDS: guaiFENesin SYRUP 200 MG/10 ML UDC PO SCH (07:57)
[2018-11-01] MEDS: DIGOXIN 0.125 MG TAB PEG SCH (07:58)
[2018-11-01] MEDS: APIXABAN 5 MG TAB (ELIQUIS) PEG SCH (07:58)
[2018-11-01 07:59] VITALS: BP 120/78
[2018-11-01] MEDS: BISOPROLOL FUMARATE 10 MG TAB PEG SCH (07:59)
[2018-11-01] MEDS: ASPIRIN 81 MG CHEW TABLET PEG SCH (11:52)
--- NOTE | 2018-11-01 16:50 | DS.PDOC ---
Discharge Summary General Date of Admission Oct 24, 2018 at 15:05 Date of Discharge 11/01/18 Discharge Summary PROCEDURES PERFORMED DURING STAY: s/p Thoracentesis on 10/30/18 with removal of 500 cc's of fluid ADMITTING/DISCHARGE DIAGNOSES: Acute Respiratory Distress 2/2 Aspiration Pneumonia History of neck cancer History of CVA Atrial fibrillation Hypertension Hypothyroidism COMPLICATIONS/CHIEF COMPLAINT: Aspiration Pneumonia Hypernatremia. HISTORY OF PRESENT ILLNESS: . 78-year-old male with past medical history of hypertension, dyslipidemia, hypothyroidism, atrial fibrillation, CVA, and neck cancer status post surgical excision, status post chemotherapy and radiation with subsequent PEG tube p lacement presented to the ER with a chief complaint of 3 days of worsening cough with whitish productive sputum. The patient also complained of subjective fevers, chills, and shortness of breath. He denied any complaints of chest pain, palpitations, abdominal pain, or any nausea/vomiting/diarrhea. In the ER, a CT scan of the chest revealed findings suggestive of aspiration with dense consolidation of infiltrate in the left lower lobe. The patient was admitted to the hospitalist service for further evaluation and management. During hospitalization, the patient was treated with empiric antibiotic therapy. The patient also underwent a thoracentesis on 10/30/18 with the removal of approximately 500 mL of fluid. The patient's respiratory status significantly improved with the aforementioned therapy. At this time, the patient states that he is feeling much better and is eager to return home. The patient has been seen and cleared by physical therapy. He has been noted to be ambulating in the hallways without any acute complaints. I have counseled the patient to follow-up with his primary care physician within 7 days. Lastly, the patient is to return to the ER for any acute emergencies. DISCHARGE MEDICATIONS: Please see below. ALLERGIES: Please see below. PHYSICAL EXAMINATION ON DISCHARGE: VITAL SIGNS: Please see below. General Exam: Positive: Alert, Cooperative, No Acute Distress ENT Exam: Positive: Atraumatic, Mucous membr. moist/pink Neck Exam: Negative: JVD Chest Exam: Positive: Diminished Heart Exam: Positive: Rate Normal, Normal S1, Normal S2 Abdomen Exam: Positive: Soft; Negative: Tenderness Extremity Exam: Negative: Tenderness LABORATORY DATA: Please see below. IMAGING: CT NECK WITHOUT CONTRAST: HISTORY: Stridor. COMPARISON: 05/26/2017 The naso-, shayan- and hypopharynx, larynx and subglottic trachea are normal in appearance. The parotid and right submandibular glands are normal in size and density. The left submandibular gland is not seen. The thyroid gland is atrophic. The thyroid gland is normal in density. Small lymph nodes less than 1 cm in size are present in the internal jugular chains, posterior triangles, and submandibular areas. Atherosclerotic calcification is present at the carotid bifurcations. Surgical clips are present in the left carotid space and lateral to the left thyroid lobe. Degenerative change is present in the cervical spine. The lung apices are clear. The visualized sinuses are clear. IMPRESSION: There is no neck mass or adenopathy. Chest one-view HISTORY: Shortness of breath Comparison: 01:19 p.m. 10/30/2018 Patchy density is present in the left lower lobe consistent with atelectasis or infiltrate that is increased compared to the previous study. The right lung is clear. There is blunting of the left costophrenic angle due to pleural thickening or a small pleural effusion unchanged compared to the previous study. The heart is normal in size. The pulmonary vasculature is normal in appearance. Impression: 1. Left lower lobe atelectasis or infiltrate increased compared to the previous study. 2. There is blunting of the left costophrenic angle due to pleural thickening or small pleural effusion unchanged compared to the previous study. CT CHEST WITHOUT CONTRAST: 10/24/2018. COMPARISON: 05/24/2017 CT; AP portable chest today. CLINICAL HISTORY: Cough, dyspnea, stridor, history of carcinoma of the neck. Possible aspiration. Leukocytosis. FINDINGS: Noncontrast techniques were utilized. There is a small left pleural effusion and consolidative opacity with air bronchograms in the left lower lobe posterior and medial basal segments more than lateral basal segment. Debris is seen in the left mainstem bronchus just beyond the vida which does not have the appearance of a solid mass within the bronchus. There is no bronchial occlusion. Lower lobe segmental bronchi are patent. The left upper lobe and entire right lung are without infiltrate. There is no right effusion. No definite nodule although what can be hidden in the infiltrates in the right base. Heart not grossly enlarged. Left atrium is mildly prominent. There are coronary calcifications, calcifications in the aortic valve plane and at the aortic root as well as at the arch and descending aorta. No aneurysm. No mediastinal or hilar pathologic sized adenopathy. The bone windows show sternum, manubrium, visualized portions of clavicles, scapulae, humeri and ribs all intact and without acute fracture. Degenerative changes in the spine with mild thoracic kyphosis but no acute compression deformity of destructive lesion. Posterior elements intact. Upper abdomen shows that portion of liver intact with a cyst in the lateral segment left hepatic lobe up to 2 cm. No biliary dilatation. There are a few calcified gallstones in the dependent gallbladder, subcentimeter in size. The spleen is absent. Pancreas shows no mass or ductal dilatation in its visualized segments. No stones, fluid collection or peripancreatic adenopathy. Upper abdominal aorta has atherosclerotic calcifications without aneurysm and there is no evidence for hiatal hernia. There is a cyst off the medial aspect interpolar region of the left kidney up to 3.6 cm. No mass or hydronephrosis. Calcified arteries in the hilum on both sides. No adrenal lesion. Small bowel loops and colon grossly unremarkable. There is a gastrostomy feeding tube in the left upper quadrant as on the previous study. No gross hiatal hernia. IMPRESSION: 1. Findings suggest aspiration with dense consolidation of infiltrate in the left lower lobe with air bronchograms and with some debris in the left mainstem bronchus but without mass or adenopathy causing compression of the hilus or lower lobe bronchi on that side. 2. Gastrostomy feeding tube in the left upper quadrant unchanged. No gross hiatal hernia. 3. Lung cesar are otherwise grossly clear. No effusion or cadence edema. 4. Some left atrial enlargement, calcified aorta without aneurysm and coronary artery calcifications as before. PROGNOSIS: Poor long-term prognosis ACTIVITY: As tolerated. DIET: 2 g low sodium diet DISCHARGE PLAN: DISPOSITION: 01 Home, Self-Care. DISCHARGE INSTRUCTIONS: I have counseled the patient to follow-up with his primary care physician within 7 days. Lastly, the patient is to return to the ER for any acute emergencies. DISCHARGE CONDITION: Stable. TIME SPENT ON DISCHARGE: Greater than 30 minutes. Vital Signs/I&Os Vital Signs Date Time Temp Pulse Resp B/P (MAP) Pulse Ox O2 Delivery O2 Flow Rate FiO2 11/01/18 07:59 72 120/78 11/01/18 06:00 97.9 22 97 10/31/18 21:15 2.0 I&O- Last 24 Hours up to 6 AM 11/01/18 06:00 Intake Total 1070 ml Output Total 930 ml Balance 140 ml Laboratory Data Labs 24H Laboratory Tests 2 11/01/18 06:02: Nucleated Red Blood Cells % (auto) 0.0, Anion Gap 3L, Glomerular Filtration Rate > 60.0, Blood Urea Nitrogen 12, Creatinine 0.69L, Sodium Level 140, Potassium Level 4.0, Chloride Level 106, Carbon Dioxide Level 31, Calcium Level 8.9, Magnesium Level 2.3, C-Reactive Protein, Quantitative 1.76H CBC/BMP Laboratory Tests 11/01/18 06:02 Red Blood Count 3.93 L, Mean Corpuscular Volume 102.0 H, Mean Corpuscular Hemoglobin 33.1 H, Mean Corpuscular Hemoglobin Concent 32.4, Red Cell Distribution Width 13.8, Calcium Level 8.9 Microbiology Microbiology 10/24/18 Blood Culture - Final, Complete NO GROWTH AFTER 5 DAYS 10/24/18 Blood Culture - Final, Complete NO GROWTH AFTER 5 DAYS 10/30/18 Fungal Smear, Received Pending 10/30/18 Fungal Culture, Received Pending 10/30/18 Acid Fast Stain, Received Pending 10/30/18 Mycobacterial Culture, Received Pending 10/30/18 Gram Stain - Final, Complete 10/30/18 Anaerobic Culture - Final, Complete 10/30/18 Body Fluid Culture - Final, Complete 10/29/18 Gram Stain - Final, Complete 10/29/18 Sputum Culture - Final, Complete 10/24/18 Respiratory Virus Panel (PCR) (ZULY) - Final, Complete Discharge Medications Scheduled (Jevity 1.5 Xander) 1 Liq Liq, 1 LIQ PEG QID, (Reported) (Digoxin) 125 Mcg Tab, 125 MCG PEG DAILY, (Reported) TAKES AT NOON Apixaban Base (Eliquis) 5 Mg Tab, 5 MG PEG BID, (Reported) Aspirin (Aspirin 81) 81 Mg Tab, 81 MG PEG DAILY, (Reported) TAKES AT NOON Atorvastatin Calcium (Atorvastatin Calcium) 20 Mg Tab, 20 MG PEG QPM, (Reported) Bisoprolol Fumarate (Bisoprolol Fumarate) 10 Mg Tab, 10 MG PEG DAILY, (Reported) Levothyroxine Sodium (Synthroid) 50 Mcg Tab, 50 MCG PEG DAILY, (Reported) Scheduled PRN Albuterol Sulfate (Ventolin Hfa) 108 Mcg/Act Aer, 2 PUFFS INH Q4H PRN for SHORTNESS OF BREATH, (Reported) Allergies Coded Allergies: Contrast Media (Verified Allergy, Mild, RASH, 06/17/14) Iodine (Verified Allergy, Unknown, 06/17/14) ALEJO ONTIVEROS MD Nov 01, 2018 16:50
== END 2018-11-01 12:45 | disposition home or self-care (01) | DRG 178 ==
LOC: M ED 09:10 → M ED INP 15:05 → M MSPAV 20:05
PROVIDERS: ADMIT Internal Medicine; ATTEND Internal Medicine
PROC: 0W993ZZ Drainage of Right Pleural Cavity, Percutaneous Approach (ICD-10-PCS; principal; 2018-10-30)
DX: J69.0 Pneumonitis due to inhalation of food and vomit (principal); E87.0 Hyperosmolality and hypernatremia; R06.03 Acute respiratory distress; E03.9 Hypothyroidism, unspecified; I10 Essential (primary) hypertension; I48.91 Unspecified atrial fibrillation; E78.5 Hyperlipidemia, unspecified; Z86.73 Personal history of transient ischemic attack (TIA), and cerebral infarction without residual deficits; Z79.899 Other long term (current) drug therapy; Z79.82 Long term (current) use of aspirin; Z91.041 Radiographic dye allergy status; Z88.8 Allergy status to other drugs, medicaments and biological substances; Z79.01 Long term (current) use of anticoagulants

== ENCOUNTER 2018-11-07 02:40 | Inpatient (IN) | payer MEDICARE, OTHER ==
[~2018-11-07] VITALS: Ht 167.6 cm; Wt 60.0 kg
[~2018-11-07 02:40] MED LIST changes: -/PANT40TA; -/WARF25TA; +ASPI-286 PEG; -ASPI1TAB PEG; +ASPI81TA26 PEG; -BISO10TA PEG; +BISO10TA13 PEG; -CHIL81CH2 PEG; +COUM1TAB18; +METO-745; +PROT1TAB2; +SYNT50TA PEG; -TOPR100T
[2018-11-07] MEDS ORDERED: ONDANSETRON 4MG/2ML VIAL (J2405) IV ONE (03:45)
[2018-11-07 03:56] LABS: BASO # 0.1 10^3/uL (0.0-0.2); BASO % 0.8 % (0.0-1.0); EOS # 0.2 10^3/uL (0.0-0.50); EOS % 1.6 % (0.0-3.0); HEMATOCRIT 42.2 % (42.0-52.0); HEMOGLOBIN 13.8 g/dl (13.5-17.5); LYMPH # 1.5 10^3/uL (1.5-4.5); LYMPH % 14.5 % (24.0-44.0); MEAN CORPUSCULAR HEMOGLOBIN 33.1 pg (27.0-33.0); MEAN CORPUSCULAR HGB CONC 32.7 g/dl (32.0-36.5); MEAN CORPUSCULAR VOLUME 101.2 fl (80.0-96.0); MONO # 0.8 10^3/uL (0.0-0.8); MONO % 7.7 % (0.0-5.0); NEUTROPHILS # 7.6 10^3/uL (1.8-7.7); NEUTROPHILS % 75.1 % (36.0-66.0); PLATELET COUNT, AUTOMATED 373 10^3/uL (150-450); RED BLOOD COUNT 4.17 10^6/uL (4.30-6.10); WHITE BLOOD COUNT 10.1 10^3/uL (4.0-10.0)
[2018-11-07] MEDS: MORPHINE 2 MG/ML 1ML SYRINGE (J2270) IV PRN ×2 (03:59→07:07)
[2018-11-07 04:06] LABS: INR 1.39; PROTHROMBIN TIME 17.3 SECONDS (12.1-14.4)
[2018-11-07 04:07] LABS: PARTIAL THROMBOPLASTIN TIME 34.1 SECONDS (25.4-37.6)
[2018-11-07 04:16] LABS: BLOOD UREA NITROGEN 20 MG/DL (7-18); CALCIUM LEVEL 8.5 MG/DL (8.8-10.2); CARBON DIOXIDE LEVEL 28 MEQ/L (21-32); CHLORIDE LEVEL 111 MEQ/L (98-107); CPK CREATINE PHOSPHOKINASE 81 U/L (39-308); CREATININE FOR GFR 0.74 MG/DL (0.70-1.30); GLOMERULAR FILTRATION RATE > 60.0 (>35); GLUCOSE, FASTING 108 MG/DL (70-100); MB/CK RELATIVE INDEX 2.47 (< OR =4); POTASSIUM SERUM 4.5 MEQ/L (3.5-5.1); SODIUM LEVEL 146 MEQ/L (136-145); TROPONIN I 0.03 NG/ML (< 0.10)
--- NOTE | 2018-11-07 06:00 | REPVR ---
EXAM: CT Chest Without Contrast EXAM DATE/TIME: 11/07/2018 3:43 AM CLINICAL HISTORY: 78 years old, male; Pain; Chest pain; Left-sided chest pain; Additional info: Left post chest wall pain TECHNIQUE: Imaging protocol: Axial computed tomography images of the chest without intravenous contrast. Coronal and sagittal reformatted images were created and reviewed. 3D rendering: MIP reconstructed images were created and reviewed. Radiation optimization: All CT scans at this facility use at least one of these dose optimization techniques: automated exposure control; mA and/or kV adjustment per patient size (includes targeted exams where dose is matched to clinical indication); or iterative reconstruction. COMPARISON: CT Chest without contrast 10/29/2018 10:34 AM FINDINGS: Lungs: There is central predominant consolidation in the left lower lobe and there are poorly defined reticulonodular densities in the left lower lobe and in the lingula, which are new or more apparent than on the prior exam, and most consistent with pneumonia. There is less volume loss in the left lower lobe compared to the prior exam. There is some continued high density material in the atelectatic left lower lobe, which may be dense aspirated material or calcification. Pleural space: There is a small left pleural effusion, slightly smaller than on the prior exam. The small right pleural effusion seen previously has resolved. Heart: There is mild cardiomegaly. There is a trace pericardial fluid. There is severe atherosclerotic calcification of the coronary arteries. Aorta: The aorta demonstrates severe atherosclerotic calcification. There is ectasia of the descending thoracic aorta, unchanged. Lymph nodes: Unremarkable. No enlarged lymph nodes. Bones/joints: Degenerative endplate changes are seen at multiple levels in the visualized spine. Soft tissues: There is nonspecific gynecomastia. Liver: There is a 2.0 cm lesion with fluid attenuation consistent with a cyst in the left lobe of liver, unchanged. Gallbladder and bile ducts: Gallstones are present. Kidneys and ureters: There is a 3.5 cm cyst in the left kidney upper pole, incompletely included. IMPRESSION: 1. The left pleural effusion is slightly smaller than on the prior exam and the right pleural effusion has resolved. 2. There is a decrease in atelectasis within the left lower lobe, but there is now central predominant consolidation in the left lower lobe and poorly defined reticulonodular densities now present in the left lower lobe and the lingula, which are most consistent with pneumonia. Electronically signed by: Alicia Coleman On 11/07/2018 06:00:06 AM
[2018-11-07] MEDS ORDERED: PIPERACILLIN/TAZOBACTAM SOD 3.375 GM in D5W MINI-BAG PLUS 50 ML IV ONE (06:45)
--- NOTE | 2018-11-07 06:58 | ECGEPIP ---
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
[2018-11-07] MEDS ORDERED: ALBUTEROL 90 MCG/ACT 8GM HFA INHALER INH PRN (10:15)
[2018-11-07] MEDS: LevoFLOXacin IV 750 MG in APPROPRIATE DILUENT 1 EA IV SCH (11:45)
[2018-11-07] MEDS: DIGOXIN 0.125 MG TAB PEG SCH (13:20)
[2018-11-07] MEDS: ASPIRIN 81 MG CHEW TABLET PEG SCH (13:20)
[2018-11-07] MEDS: LEVOTHYROXINE 50MCG TABLET (0.05MG) PEG SCH (13:20)
[2018-11-07] MEDS: BISOPROLOL FUMARATE 10 MG TAB PEG SCH (13:22)
[2018-11-07] MEDS: APIXABAN 5 MG TAB (ELIQUIS) PEG SCH ×2 (13:23→21:32)
--- NOTE | 2018-11-07 14:51 | HPEPDOC ---
[facility] Medical History & Physical Date of Admission Nov 07, 2018 Attending Physician: MAHOGANY CAMPOS MD History and Physical CHIEF COMPLAINT: Back pain HISTORY OF PRESENT ILLNESS: Patient is an 78 year old male with a past medical history significant for hypertension, hypothyroidism, atrial fibrillation on eliquis, cerebral vascular accident, and neck cancer s/p surgical excision, chemotherapy, and radiation with subsequent PEG tube placement who presented to the [facility] Emergency Department with complaint of right sided back pain at the site of recent thoracentesis on 10/30/2018. Patient was recently hospitalized on 10/24/2018-11/01/2018 for what what was believed to be aspiration pneumonia. At that time he received empiric antibiotic treatment with Zosyn. In addition, he was found to have a large right pleural effusion and underwent a thoracentesis on 10/30/2018 removing approximately 500 cc of fluid. Patient had admitted to improvement in his breathing and was agreeable to discharge. Patient states that after discharge he did fairly well until last night 11/06/2018 he stated that he was lying down to go to bed and noticed a large "pop" sound which was followed by pain on the right side of his back where he had had the thoracentesis. He has denied any shortness of breath or increased cough. He st ates that last night he did cough up phlegm which is not abnormal for him. However, he did notice some speckled blood in his sputum. He admits to coughing up blood in a similar fashion in the past. He states this only happened once last night and has not continued. He denies any fevers, or chills. He denies any nausea or vomiting, or diarrhea. He denies any shortness of breath and states that his concern is the pain in his right side. He states that he became alarmed by the "popping" which prompted him to come in for evaluation. Once in the emergency department the patient received a CT of his chest without contrast. This demonstrated a left pleural effusion which was slightly smaller than the one on the previous exam and a right pleural effusion which has resolved. There is noted decrease in atelectasis within the left lower lobe, but now central predominant consolidation in the left lower lobe and poorly defined reticulonodular densities in the left lower lobe and the lingula which were defined as consistent with pneumonia. The patient has remained afebrile and wasn't only mildly elevated white blood cell count 10.1. His lactic acid on presentation was 1.8. He received 3.375 g of Zosyn in the ER. Hospitalist service was consulted and the patient was admitted for further evaluation and treatment PAST MEDICAL HISTORY: 1. Neck cancer status post surgical resection and status post chemotherapy and radiation therapy with subsequent PEG tube placement. 2. History of CVA 2. 3. Atrial fibrillation on Eliquis 4. Hypertension. 5. Hyperlipidemia. 6. Hypothyroidism. PAST SURGICAL HISTORY: 1. Neck cancer. Surgical resection. 2. PEG tube placement SOCIAL HISTORY: Patient is a former smoker, used to smoke 2 packs cigarettes daily for 30 years, quit approximately 38 years ago. He denies any alcohol or illicit drug use. He currently lives at home alone. FAMILY HISTORY: Noncontributory ALLERGIES: Please see below. REVIEW OF SYSTEMS: CONSTITUTIONAL:. Denies fevers, chills, night sweats, unintentional weight loss or weight gain. HEENT:. Admits to cough, however, denies increase in sputum production. Denies dysphagia or sore throat. CARDIOVASCULAR:. Denies chest pain or palpitations or feelings of the heart racing RESPIRATORY: Denies shortness of breath or wheezing. Admits to cough, which she states is chronic, however, does admit to one episode of speckled blood in his sputum, which he states he has had before. Denies any additional episodes GASTROINTESTINAL:. Denies abdominal pain, nausea, vomiting, diarrhea or constipation. Denies blood in his stool. GENITOURINARY:. Denies dysuria or increased frequency. SKIN: Denies any rashes or lesions MUSCULOSKELETAL:. Denies any muscle weakness. NEUROLOGICAL:. Denies any changes in vision or gait. Denies any change in speech PSYCHIATRIC: Denies any depression or anxiety. ENDOCRINE: Denies heat intolerance or cold intolerance HEMATOLOGIC/LYMPHATIC:. Denies easy bruising or bleeding. HOME MEDICATIONS: Please see below. PHYSICAL EXAMINATION: VITAL SIGNS: Temperature 98.4, pulse, 113, respiratory rate 22, blood pressure 180/95, pulse oximetry 97 % on room air. GENERAL APPEARANCE: He is awake, alert and oriented. He is lying in bed in no acute distress. . He does have a raspy voice secondary to his neck cancer resection and radiation therapy. HEENT: Atraumatic, normocephalic. Eyes nonicteric. Trachea is midline. Lips are chapped and dry. CARDIOVASCULAR:. Irregularly irregular rhythm, slightly tachycardic rate. No clicks, rubs or murmurs appreciated. No JVD. No carotid bruits. LUNGS: Slightly decreased breath sounds bilaterally, more so on the left lower lobe. Patient's oxygen being on room air. No accessory muscle use. Good respiratory effort. No wheezes, rhonchi or rales ABDOMEN:. Soft, nondistended, nontender to palpation all 4 quadrants. No rebound tenderness or guarding. Positive bowel sounds. PEG tube in place. MUSCULOSKELETAL: Tenderness to palpation of left lower back at site of recent thoracentesis. No erythema or drainage or signs of infection. EXTREMITIES:. No edema, 2+ posterior tibial pulses 2+ radial pulses bilaterally. NEUROLOGICAL:. No focal neurological deficits. PSYCHIATRIC:. Mood and affect appear appropriate. LABORATORY DATA: See below. IMAGING: EXAM: CT Chest Without Contrast EXAM DATE/TIME: 11/07/2018 3:43 AM CLINICAL HISTORY: 78 years old, male; Pain; Chest pain; Left-sided chest pain; Additional info: Left post chest wall pain TECHNIQUE: Imaging protocol: Axial computed tomography images of the chest without intravenous contrast. Coronal and sagittal reformatted images were created and reviewed. 3D rendering: MIP reconstructed images were created and reviewed. Radiation optimization: All CT scans at this facility use at least one of these dose optimization techniques: automated exposure control; mA and/or kV adjustment per patient size (includes targeted exams where dose is matched to clinical indication); or iterative reconstruction. COMPARISON: CT Chest without contrast 10/29/2018 10:34 AM FINDINGS: Lungs: There is central predominant consolidation in the left lower lobe and there are poorly defined reticulonodular densities in the left lower lobe and in the lingula, which are new or more apparent than on the prior exam, and most consistent with pneumonia. There is less volume loss in the left lower lobe compared to the prior exam. There is some continued high density material in the atelectatic left lower lobe, which may be dense aspirated material or calcification. Pleural space: There is a small left pleural effusion, slightly smaller than on the prior exam. The small right pleural effusion seen previously has resolved. Heart: There is mild cardiomegaly. There is a trace pericardial fluid. There is severe atherosclerotic calcification of the coronary arteries. Aorta: The aorta demonstrates severe atherosclerotic calcification. There is ectasia of the descending thoracic aorta, unchanged. Lymph nodes: Unremarkable. No enlarged lymph nodes. Bones/joints: Degenerative endplate changes are seen at multiple levels in the visualized spine. Soft tissues: There is nonspecific gynecomastia. Liver: There is a 2.0 cm lesion with fluid attenuation consistent with a cyst in the left lobe of liver, unchanged. Gallbladder and bile ducts: Gallstones are present. Kidneys and ureters: There is a 3.5 cm cyst in the left kidney upper pole, incompletely included. IMPRESSION: 1. The left pleural effusion is slightly smaller than on the prior exam and the right pleural effusion has resolved. 2. There is a decrease in atelectasis within the left lower lobe, but there is now central predominant consolidation in the left lower lobe and poorly defined reticulonodular densities now present in the left lower lobe and the lingula, which are most consistent with pneumonia. Electronically signed by: Cecilia Coleman On 11/07/2018 06:00:06 AM DD: CECILIA COLEMAN MD 11/07/18 0343 DT: KATHY 11/07/18599 DS: SALLY 11/07/18599 MICROBIOLOGY: Please see below. ASSESSMENT: Patient is a 78-year-old male with a past medical history significant for hypertension, hypothyroidism, atrial fibrillation on eliquis, cerebral vascular accident, and neck cancer s/p surgical excision, chemotherapy, and radiation with subsequent PEG tube placement who presented to the [facility] Emergency Department with complaint of right sided back pain at the site of recent thoracentesis on 10/30/2018. CT imaging in the emergency department wilder ggested a possible left lower lobe pneumonia. Patient was treated with IV Zosyn in the emergency department. Patient is admitted to hospital service with IV Levaquin. . PLAN: 1. Left lower lobe pneumonia. -Patient presented with pain in his back, not necessarily shortness of breath or increased sputum production. He does have appear to be consolidation in the left lower lobe with CT imaging. History with IV Zosyn in the emergency department. We will continue him on levofloxacin. Pro-calcitonin has been ordered and is pending. -If Pro-calcitonin is negative and patient remains afebrile without a white count, we will likely discontinue antibiotics as it may be unlikely that this is a true pneumonia. 2. Atrial fibrillation. -Patient is currently rate controlled. We'll continue digoxin and bisoprolol. -We'll continue Eliquis for anticoagulation. 3. History of CVA. -Continue atorvastatin and aspirin. 4. Hypothyroidism. -Continue home Synthroid 5. DVT prophylaxis. -Patient's chronically anticoagulated on Eliquis Vital Signs Vital Signs Date Time Temp Pulse Resp B/P (MAP) Pulse Ox O2 Delivery O2 Flow Rate FiO2 11/07/18 07:07 18 98 11/07/18 06:42 97.6 11/07/18 05:25 83 11/07/18 05:07 132/76 (94) 11/07/18 02:41 Room Air Laboratory Data Labs 24H Laboratory Tests 2 11/07/18 03:20: Immature Granulocyte % (Auto) 0.3, White Blood Count 10.1H, Red Blood Count 4.17L, Hemoglobin 13.8, Hematocrit 42.2, Mean Corpuscular Volume 101.2H, Mean Corpuscular Hemoglobin 33.1H, Mean Corpuscular Hemoglobin Concent 32.7, Red Cell Distribution Width 13.9, Platelet Count 373, Neutrophils (%) (Auto) 75.1H, Lymphocytes (%) (Auto) 14.5L, Monocytes (%) (Auto) 7.7H, Eosinophils (%) (Auto) 1.6, Basophils (%) (Auto) 0.8, Neutrophils # (Auto) 7.6, Lymphocytes # (Auto) 1.5, Monocytes # (Auto) 0.8, Eosinophils # (Auto) 0.2, Basophils # (Auto) 0.1, Nucleated Red Blood Cells % (auto) 0.0, Prothrombin Time 17.3H, Prothromb Time International Ratio 1.39, Activated Partial Thromboplast Time 34.1, Anion Gap 7L, Glomerular Filtration Rate > 60.0, Lactic Acid Level 1.8, Blood Urea Nitrogen 20H, Creatinine 0.74, Sodium Level 146H, Potassium Level 4.5, Chloride Level 111H, Carbon Dioxide Level 28, Calcium Level 8.5L, Total Creatine Kinase 81, Creatine Kinase MB 2.0, Creatine Kinase MB Relative Index 2.47, Troponin I 0.03 CBC/BMP Laboratory Tests 11/07/18 03:20 Red Blood Count 4.17 L, Mean Corpuscular Volume 101.2 H, Mean Corpuscular Hemoglobin 33.1 H, Mean Corpuscular Hemoglobin Concent 32.7, Red Cell Distribution Width 13.9, Neutrophils (%) (Auto) 75.1 H, Lymphocytes (%) (Auto) 14.5 L, Monocytes (%) (Auto) 7.7 H, Eosinophils (%) (Auto) 1.6, Basophils (%) (Auto) 0.8, Neutrophils # (Auto) 7.6, Lymphocytes # (Auto) 1.5, Monocytes # (Auto) 0.8, Eosinophils # (Auto) 0.2, Basophils # (Auto) 0.1, Calcium Level 8.5 L, Total Creatine Kinase 81 Microbiology Microbiology 11/07/18 Blood Culture, Received Pending 11/07/18 Blood Culture, Received Pending Home Medications Scheduled (Jevity 1.5 Xander) 1 Liq Liq, 1 LIQ PEG QID (Digoxin) 125 Mcg Tab, 125 MCG PEG DAILY TAKES AT NOON Apixaban Base (Eliquis) 5 Mg Tab, 5 MG PEG BID Aspirin (Aspirin 81) 81 Mg Tab, 81 MG PEG DAILY TAKES AT NOON Atorvastatin Calcium (Atorvastatin Calcium) 20 Mg Tab, 20 MG PEG QPM Bisoprolol Fumarate (Bisoprolol Fumarate) 10 Mg Tab, 10 MG PEG DAILY Levothyroxine Sodium (Synthroid) 50 Mcg Tab, 50 MCG PEG DAILY Scheduled PRN Albuterol Sulfate (Ventolin Hfa) 108 Mcg/Act Aer, 2 PUFFS INH Q4H PRN for SHORTNESS OF BREATH Allergies Coded Allergies: Contrast Media (Verified Allergy, Mild, RASH, 06/17/14) MS - Iodine (Verified Allergy, Unknown, 06/17/14) GME ATTESTATION GME ATTESTATION My faculty preceptor for this patient encounter was physically present during the encounter and was fully available. All aspects of the patient interview, examination, medical decision making process, and medical care plan development were reviewed and approved by the faculty preceptor. The faculty preceptor is aware and concurs with the plan as stated in the body of this note and will attest to such by his/her cosignature. ATTENDING NOTE I, Mahogany Campos, have both independently examined this patient as well as reviewed the documentation. I have discussed in detail with the resident the findings and plan of treatment as documented in the residents documentation. I will continue to follow the patient and offer further guidance to the patients care as necessary during this hospital stay. KIM DAS DO Nov 07, 2018 11:34 MAHOGANY CAMPOS MD Nov 07, 2018 20:51
[2018-11-07 14:54] VITALS: BP 150/76
[2018-11-07] MEDS: ACETAMINOPHEN TAB 650MG DOSE (2X325MG) PO PRN (21:32)
[2018-11-07] MEDS: ATORVASTATIN 20 MG TAB PEG SCH (21:32)
[2018-11-07 22:00] VITALS: BP 148/73
[2018-11-08 06:00] VITALS: BP 140/75
[2018-11-08] MEDS: LEVOTHYROXINE 50MCG TABLET (0.05MG) PEG SCH (06:00)
[2018-11-08] MEDS: ACETAMINOPHEN TAB 650MG DOSE (2X325MG) PO PRN (06:46)
[2018-11-08 08:00] LABS: BASO % 0.4 % (0.0-1.0); EOS # 0.1 10^3/uL (0.0-0.50); EOS % 1.1 % (0.0-3.0); HEMATOCRIT 41.3 % (42.0-52.0); HEMOGLOBIN 13.3 g/dl (13.5-17.5); LYMPH # 1.3 10^3/uL (1.5-4.5); LYMPH % 13.6 % (24.0-44.0); MEAN CORPUSCULAR HEMOGLOBIN 33.1 pg (27.0-33.0); MEAN CORPUSCULAR HGB CONC 32.2 g/dl (32.0-36.5); MEAN CORPUSCULAR VOLUME 102.7 fl (80.0-96.0); MONO # 0.9 10^3/uL (0.0-0.8); MONO % 9.9 % (0.0-5.0); NEUTROPHILS % 74.7 % (36.0-66.0); PLATELET COUNT, AUTOMATED 325 10^3/uL (150-450); RED BLOOD COUNT 4.02 10^6/uL (4.30-6.10); WHITE BLOOD COUNT 9.4 10^3/uL (4.0-10.0)
[2018-11-08 08:22] LABS: BLOOD UREA NITROGEN 20 MG/DL (7-18); CALCIUM LEVEL 8.9 MG/DL (8.8-10.2); CARBON DIOXIDE LEVEL 28 MEQ/L (21-32); CHLORIDE LEVEL 110 MEQ/L (98-107); CREATININE FOR GFR 0.75 MG/DL (0.70-1.30); GLOMERULAR FILTRATION RATE > 60.0 (>35); GLUCOSE, FASTING 99 MG/DL (70-100); POTASSIUM SERUM 4.2 MEQ/L (3.5-5.1); SODIUM LEVEL 144 MEQ/L (136-145)
[2018-11-08] MEDS ORDERED: NAPROXEN 250 MG TAB PO PRN (09:15)
[2018-11-08] MEDS ORDERED: PERCOCET 5MG/325MG TAB PO PRN (09:15)
--- NOTE | 2018-11-08 09:42 | IPNPDOC ---
Date Seen The patient was seen on 11/08/18. Progress Note SUBJECTIVE: Patient was seen and examined this morning. He states he is complaining of left-sided back pain where his thoracentesis was performed on 10/30/2018. . He states that the current medications that he is receiving are not working for the pain. He also states that he is coughing up phlegm which is yellow. However, he states this is not consistent. He denies any fevers, chills, nausea, vomiting or diarrhea. OBJECTIVE PHYSICAL EXAMINATION: VITAL SIGNS: Please see below. GENERAL: Awake, alert and oriented, appears in no acute distress. He is sitting on edge of bed. He is complaining of back pain HEENT:. Atraumatic, normocephalic. Eyes nonicteric. Trachea is midline. Mucous membranes are pink but appear somewhat dry. CARDIOVASCULAR: Irregularly irregular rhythm, normal rate. No clicks, rubs or murmurs. No JVD or carotid bruits. RESPIRATORY: Decreased breath sounds bilaterally, more so on the left lower lobe. No accessory muscle use and good respiratory effort. No wheezes, rhonchi or rales. Patient is currently oxygenating on room air. He does have tenderness to palpation of the left posterior thorax. There is a small lump on the left thorax around ribs 8, 9, and 10. He denies pain with inspiration ABDOMINAL:, Soft, nontender to palpation all 4 quadrants. No rebound tenderness or guarding. Positive bowel sounds. PEG tube in place. Ventral wall hernia present EXTREMITIES:. No edema, 2+ posterior tibial pulse 2+ radial pulses bilaterally NEUROLOGICAL:. No focal neurological deficits PSYCHOLOGICAL:. Mood and appear appropriate LABORATORY DATA, IMAGING STUDIES, MICROBIOLOGY: Please see below.. DVT prophylaxis ordered?: Yes ASSESSMENT AND PLAN: Patient is a 78-year-old male with a past medical history significant for hypertension, hypothyroidism, atrial fibrillation on eliquis, cerebral vascular accident, and neck cancer s/p surgical excision, chemotherapy, and radiation with subsequent PEG tube placement who presented to the [facility] Emergency Department with complaint of right sided back pain at the site of recent thoracentesis on 10/30/2018. CT imaging in the emergency department suggested a possible left lower lobe pneumonia. Patient was treated with IV Zosyn in the emergency department. Patient is admitted to hospital service with IV Levaquin. PROBLEMS: 1. Left lower lobe pneumonia. -Patient presented with pain in his back, not necessarily shortness of breath or increased sputum production. He does have appear to be consolidation in the left lower lobe with CT imaging. He was treated with IV Zosyn in the emergency department. He is continued on Levafloxacin. -A Pro-calcitonin has been ordered and result is currently pending -If Pro-calcitonin is negative and patient remains afebrile without a white count, we will likely discontinue antibiotics as it may be unlikely that this is a true pneumonia. 2. Intractable Left Sided Thorax Pain - Presentation the emergency room, the patient complained of left-sided thorax pain around the site of where he receives his thoracentesis on 10/30/2018 patient states that the pain is improved since yesterday. CT imaging does not necessarily define anything suggest the etiology of his pain. . He stated that the night before he presented there is primary yet heard a popping sound. Once again here is nothing on imaging that would suggest a cause for this discomfort. . He does have a area of tenderness with a left-sided is back, however, this is not warm or cellulitic in nature. -We'll add Percocet 05/325 for better pain control -Naproxen with GI prophylaxis with Protonix 3. Atrial fibrillation. -Patient is currently rate controlled. We'll continue digoxin and bisoprolol. -We'll continue Eliquis for anticoagulation. 4. History of CVA. -Continue atorvastatin and aspirin. 5. Hypothyroidism. -Continue home Synthroid 6. DVT prophylaxis. -Patient's chronically anticoagulated on Eliquis VS, I&O, 24H, Fishbone Vital Signs/I&O Vital Signs Date Time Temp Pulse Resp B/P (MAP) Pulse Ox O2 Delivery O2 Flow Rate FiO2 11/08/18 06:00 98.3 98 20 140/75 (96) 99 11/07/18 02:41 Room Air I&O- Last 24 Hours up to 6 AM 11/08/18 06:00 Intake Total 0 ml Output Total 250 ml Balance -250 ml Laboratory Data 24H LABS Laboratory Tests 2 11/07/18 15:00: 11/08/18 07:39: Immature Granulocyte % (Auto) 0.3, White Blood Count 9.4, Red Blood Count 4.02L, Hemoglobin 13.3L, Hematocrit 41.3L, Mean Corpuscular Volume 102.7H, Mean Corpuscular Hemoglobin 33.1H, Mean Corpuscular Hemoglobin Concent 32.2, Red Cell Distribution Width 13.9, Platelet Count 325, Neutrophils (%) (Auto) 74.7H, Lymphocytes (%) (Auto) 13.6L, Monocytes (%) (Auto) 9.9H, Eosinophils (%) (Auto) 1.1, Basophils (%) (Auto) 0.4, Neutrophils # (Auto) 7.0, Lymphocytes # (Auto) 1.3L, Monocytes # (Auto) 0.9H, Eosinophils # (Auto) 0.1, Basophils # (Auto) 0.0, Nucleated Red Blood Cells % (auto) 0.0, Anion Gap 6L, Glomerular Filtration Rate > 60.0, Blood Urea Nitrogen 20H, Creatinine 0.75, Sodium Level 144, Potassium Level 4.2, Chloride Level 110H, Carbon Dioxide Level 28, Calcium Level 8.9 CBC/BMP Laboratory Tests 11/08/18 07:39 Red Blood Count 4.02 L, Mean Corpuscular Volume 102.7 H, Mean Corpuscular Hemoglobin 33.1 H, Mean Corpuscular Hemoglobin Concent 32.2, Red Cell Distribution Width 13.9, Neutrophils (%) (Auto) 74.7 H, Lymphocytes (%) (Auto) 13.6 L, Monocytes (%) (Auto) 9.9 H, Eosinophils (%) (Auto) 1.1, Basophils (%) (A uto) 0.4, Neutrophils # (Auto) 7.0, Lymphocytes # (Auto) 1.3 L, Monocytes # (Auto) 0.9 H, Eosinophils # (Auto) 0.1, Basophils # (Auto) 0.0, Calcium Level 8.9 Microbiology Microbiology 11/07/18 Blood Culture - Preliminary, Resulted No growth after 24 hours . All specim... 11/07/18 Blood Culture - Preliminary, Resulted No growth after 24 hours . All specim... GME ATTESTATION GME ATTESTATION My faculty preceptor for this patient encounter was physically present during the encounter and was fully available. All aspects of the patient interview, examination, medical decision making process, and medical care plan development were reviewed and approved by the faculty preceptor. The faculty preceptor is aware and concurs with the plan as stated in the body of this note and will attest to such by his/her cosignature. ATTENDING NOTE I, Mahogany Peters, have both independently examined this patient as well as reviewed the documentation. I have discussed in detail with the resident the findings and plan of treatment as documented in the residents documentation. I will continue to follow the patient and offer further guidance to the patients care as necessary during this hospital stay. KIM DAS DO Nov 08, 2018 09:42 MAHOGANY PETERS MD Nov 08, 2018 19:10
[2018-11-08 10:30] VITALS: BP 108/84
[2018-11-08] MEDS: BISOPROLOL FUMARATE 10 MG TAB PEG SCH (10:30)
[2018-11-08] MEDS: LevoFLOXacin IV 750 MG in APPROPRIATE DILUENT 1 EA IV SCH (10:35)
[2018-11-08] MEDS: PANTOPRAZOLE 40MG INJ (PROTONIX) (C9113) IV SCH (10:35)
[2018-11-08] MEDS: APIXABAN 5 MG TAB (ELIQUIS) PEG SCH (10:40)
[2018-11-08 11:55] VITALS: BP 87/51
[2018-11-08] MEDS ORDERED: NS 500 ML IV ONE (12:15)
[2018-11-08] MEDS: ASPIRIN 81 MG CHEW TABLET PEG SCH (12:16)
[2018-11-08] MEDS: DIGOXIN 0.125 MG TAB PEG SCH (12:20)
[2018-11-08 13:30] VITALS: BP 124/86
[2018-11-08 14:00] VITALS: BP 144/78
[2018-11-08] MEDS: traMADol 50 MG TAB PO PRN (18:51)
[2018-11-08] MEDS ORDERED: LIDOCAINE 5% (LIDODERM) PATCH TD ONE (20:00)
[2018-11-08 20:25] VITALS: BP 143/76
[2018-11-08] MEDS: ATORVASTATIN 20 MG TAB PEG SCH (21:14)
[2018-11-08] MEDS: KETOROLAC 30 MG/ML VIAL (J1885) IV PRN (23:40)
[2018-11-09] VITALS (7 sets, daily range): BP systolic 103–145; BP diastolic 55–96
[2018-11-09] MEDS: traMADol 50 MG TAB PO PRN ×2 (04:15→12:53)
[2018-11-09] MEDS: LEVOTHYROXINE 50MCG TABLET (0.05MG) PEG SCH (06:07)
[2018-11-09 06:10] LABS: BASO % 0.4 % (0.0-1.0); EOS # 0.2 10^3/uL (0.0-0.50); HEMOGLOBIN 11.1 g/dl (13.5-17.5); LYMPH # 1.5 10^3/uL (1.5-4.5); LYMPH % 18.6 % (24.0-44.0); MEAN CORPUSCULAR HEMOGLOBIN 32.7 pg (27.0-33.0); MEAN CORPUSCULAR HGB CONC 32.6 g/dl (32.0-36.5); MEAN CORPUSCULAR VOLUME 100.3 fl (80.0-96.0); MONO # 0.9 10^3/uL (0.0-0.8); MONO % 10.6 % (0.0-5.0); NEUTROPHILS # 5.4 10^3/uL (1.8-7.7); PLATELET COUNT, AUTOMATED 285 10^3/uL (150-450); RED BLOOD COUNT 3.39 10^6/uL (4.30-6.10)
[2018-11-09 06:25] LABS: BLOOD UREA NITROGEN 22 MG/DL (7-18); CALCIUM LEVEL 8.2 MG/DL (8.8-10.2); CARBON DIOXIDE LEVEL 28 MEQ/L (21-32); CHLORIDE LEVEL 111 MEQ/L (98-107); CREATININE FOR GFR 0.67 MG/DL (0.70-1.30); GLOMERULAR FILTRATION RATE > 60.0 (>35); GLUCOSE, FASTING 93 MG/DL (70-100); POTASSIUM SERUM 3.9 MEQ/L (3.5-5.1); SODIUM LEVEL 145 MEQ/L (136-145)
[2018-11-09] MEDS ORDERED: **NOTE PATIENT COMMENT** MISC XX ONE (08:00)
[2018-11-09] MEDS: PANTOPRAZOLE 40MG INJ (PROTONIX) (C9113) IV SCH (08:07)
[2018-11-09] MEDS: KETOROLAC 30 MG/ML VIAL (J1885) IV PRN (08:49)
[2018-11-09] MEDS ORDERED: KETOROLAC TROMETHAMINE 10 MG TAB PO PRN (09:00)
--- NOTE | 2018-11-09 09:01 | REP ---
ULTRASOUND POSTERIOR THORACIC WALL: Real-time ultrasound evaluation of posterior lower thoracic wall performed on the left where there is a palpable abnormality due to trauma. There is an intramuscular complex fluid collection at this location measuring 4.4 x 1.8 x 2.0 cm. This most likely represents a hematoma. Electronically Signed by Todd Kwan MD 11/09/2018 11:42 A
--- NOTE | 2018-11-09 09:32 | REP ---
Portable chest x-ray: Single view. History: Evaluation of pleural effusion. Comparison radiograph October 30, 2018. Findings: Left hemidiaphragm remains elevated. There is an infiltrate in the left lower lobe similar to but not identical with the infiltrate seen previously. This may be recurrent pneumonia or persistent pneumonia. There is slight blunting of the left lateral pleural angle indicating a small amount of pleural fluid. Right lung is clear. There are surgical clips in the soft tissues of the neck on the left. Cardiomegaly is again observed unchanged. Impression: Elevated left hemidiaphragm with persistent versus recurrent infiltrate in the left lower lobe and slight blunting of the left lateral pleural angle. Electronically Signed by Drew Zacarias MD 11/09/2018 12:00 P
[2018-11-09] MEDS: BISOPROLOL FUMARATE 10 MG TAB PEG SCH (10:40)
[2018-11-09] MEDS ORDERED: LevoFLOXacin 750 MG TABLET PO SCH (11:00)
--- NOTE | 2018-11-09 11:32 | IPNPDOC ---
Date Seen The patient was seen on 11/09/18. Progress Note SUBJECTIVE: Patient was seen and examined this morning. He currently states that his pain in his back has improved since yesterday evening. Yesterday evening the patient had complained of worsening pain. The patients son was present who noted concern as he felt the "bump" on the patients back was expanding. The patient had received CT imaging at admission which did not demonstrate any finding. The patient did receive a thoracentesis on 10/30/2018. It was believed that this was likely a hematoma that had expanded likely placing pressure on surrounding structures and causing pain. The patient had been on Eliquis for his Atrial Fibrillation. At the time an ultrasound and chest x-ray were ordered as well as a surgical consultation with the cardiothoracic surgeon. The patient was also placed on Toradol, tramadol, and lidocaine patch. This morning he notes improvement in his pain. He states that his pain is well controlled. Regarding his possible pneumonia, the patient denies increased cough or sputum. He denies fevers or chills. OBJECTIVE PHYSICAL EXAMINATION: VITAL SIGNS: Please see below. GENERAL: Awake, alert and oriented, appears in no acute distress. He is sitting on edge of bed. He is complaining of back pain HEENT:. Atraumatic, normocephalic. Eyes nonicteric. Trachea is midline. Mucous membranes are pink but appear somewhat dry. CARDIOVASCULAR: Irregularly irregular rhythm, normal rate. No clicks, rubs or murmurs. No JVD or carotid bruits. RESPIRATORY: Decreased breath sounds bilaterally, more so on the left lower lobe. No accessory muscle use and good respiratory effort. No wheezes, rhonchi or rales. Patient is currently oxygenating on room air. He does have tenderness to palpation of the left posterior thorax. There is a small lump on the left thorax around ribs 8, 9, and 10. He denies pain with inspiration ABDOMINAL:, Soft, nontender to palpation all 4 quadrants. No rebound tenderness or guarding. Positive bowel sounds. PEG tube in place. Ventral wall hernia present EXTREMITIES:. No edema, 2+ posterior tibial pulse 2+ radial pulses bilaterally NEUROLOGICAL:. No focal neurological deficits PSYCHOLOGICAL:. Mood and appear appropriate LABORATORY DATA, IMAGING STUDIES, MICROBIOLOGY: Please see below. DVT prophylaxis ordered?: YES ASSESSMENT AND PLAN: Patient is a 78-year-old male with a past medical history significant for hypertension, hypothyroidism, atrial fibrillation on eliquis, cerebral vascular accident, and neck cancer s/p surgical excision, chemotherapy, and radiation with subsequent PEG tube placement who presented to the [facility] with complaint of right sided back pain at the site of recent thoracentesis on 10/30/2018. CT imaging in the emergency department suggested a possible left lower lobe pneumonia. Patient was treated with IV Zosyn in the emergency department. Patient is admitted to hospital service with IV Levaquin. PROBLEMS: 1. Left lower lobe pneumonia. -Patient presented with pain in his back, not necessarily shortness of breath or increased sputum production. He does have appear to be consolidation in the left lower lobe with CT imaging. He was treated with IV Zosyn in the emergency department. He has received Levaquin. -A Pro-calcitonin is 0.05 and therefore antibiotics were discontinued 2. Intractable Left Sided Thorax Pain likely 2/2 hematoma - Presentation the emergency room, the patient complained of left-sided thorax pain around the site of where he receives his thoracentesis on 10/30/2018 patient states that the pain is improved since yesterday. CT imaging does not necessarily define anything suggest the etiology of his pain. . He stated that the night before he presented there is primary yet heard a popping sound. Once again here is nothing on imaging that would suggest a cause for this discomfort. . He does have a area of tenderness with a left-sided is back, however, this is not warm or cellulitic in nature. -Patient complained of increased pain yesterday. An ultrasound of his back was ordered which demonstrated intramuscular complex fluid collection measuring 4.4x1.8x2.0 cm and is most likely consistent with a hematoma. This was likely from his Thoracentesis. The patient is on Eliquis for atrial fibrillation. His eliquis is discontinued due to the hematoma. -Patient has been placed on tramadol and received IV toradol. He has also been receiving a lidocaine patch and noted improvement in pain this morning. His Toradol was switched to PO today. Will monitor for pain relief. 3. Atrial fibrillation. -Patient is currently rate controlled. We'll continue digoxin and bisoprolol. -Eliquis is on hold secondary to patients hematoma 4. History of CVA. -Continue atorvastatin and aspirin. 5. Hypothyroidism. -Continue home Synthroid 6. DVT prophylaxis. -Will add TEDs and Sequentials as Deyaniraquis is on hold VS, I&O, 24H, Fishbone Vital Signs/I&O Vital Signs Date Time Temp Pulse Resp B/P (MAP) Pulse Ox O2 Delivery O2 Flow Rate FiO2 11/09/18 08:00 97.1 106 20 111/71 (84) 96 11/07/18 02:41 Room Air I&O- Last 24 Hours up to 6 AM 11/09/18 06:00 Intake Total 0 ml Output Total 150 ml Balance -150 ml Laboratory Data 24H LABS Laboratory Tests 2 11/09/18 05:36: Immature Granulocyte % (Auto) 0.4, White Blood Count 8.0, Red Blood Count 3.39L, Hemoglobin 11.1#L, Hematocrit 34.0L, Mean Corpuscular Volume 100.3H, Mean Corpuscular Hemoglobin 32.7, Mean Corpuscular Hemoglobin Concent 32.6, Red Cell Distribution Width 14.0, Platelet Count 285, Neutrophils (%) (Auto) 67.0H, Lymphocytes (%) (Auto) 18.6L, Monocytes (%) (Auto) 10.6H, Eosinophils (%) (Auto) 3.0, Basophils (%) (Auto) 0.4, Neutrophils # (Auto) 5.4, Lymphocytes # (Auto) 1.5, Monocytes # (Auto) 0.9H, Eosinophils # (Auto) 0.2, Basophils # (Auto) 0.0, Nucleated Red Blood Cells % (auto) 0.0, Anion Gap 6L, Glomerular Filtration Rate > 60.0, Blood Urea Nitrogen 22H, Creatinine 0.67L, Sodium Level 145, Potassium Level 3.9, Chloride Level 111H, Carbon Dioxide Level 28, Calcium Level 8.2L CBC/BMP Laboratory Tests 11/09/18 05:36 Red Blood Count 3.39 L, Mean Corpuscular Volume 100.3 H, Mean Corpuscular Hemoglobin 32.7, Mean Corpuscular Hemoglobin Concent 32.6, Red Cell Distribution Width 14.0, Neutrophils (%) (Auto) 67.0 H, Lymphocytes (%) (Auto) 18.6 L, Monocytes (%) (Auto) 10.6 H, Eosinophils (%) (Auto) 3.0, Basophils (%) (Auto) 0.4, Neutrophils # (Auto) 5.4, Lymphocytes # (Auto) 1.5, Monocytes # (Auto) 0.9 H, Eosinophils # (Auto) 0.2, Basophils # (Auto) 0.0, Calcium Level 8.2 L Microbiology Microbiology 11/07/18 Blood Culture - Preliminary, Resulted No Growth after 48 hours. All Specime... 11/07/18 Blood Culture - Preliminary, Resulted No Growth after 48 hours. All Specime... GME ATTESTATION GME ATTESTATION My faculty preceptor for this patient encounter was physically present during the encounter and was fully available. All aspects of the patient interview, examination, medical decision making process, and medical care plan development were reviewed and approved by the faculty preceptor. The faculty preceptor is aware and concurs with the plan as stated in the body of this note and will attest to such by his/her cosignature. ATTENDING NOTE I, Mahogany Peters, have both independently examined this patient as well as reviewed the documentation. I have discussed in detail with the resident the findings and plan of treatment as documented in the residents documentation. I will continue to follow the patient and offer further guidance to the patients care as necessary during this hospital stay. KIM DAS DO Nov 09, 2018 10:20 MAHOGANY PETERS MD Nov 09, 2018 18:58
[2018-11-09] MEDS: ASPIRIN 81 MG CHEW TABLET PEG SCH (12:52)
[2018-11-09] MEDS: DIGOXIN 0.125 MG TAB PEG SCH (12:52)
--- NOTE | 2018-11-09 16:24 | CR ---
DATE OF CONSULTATION: 11/09/2018 The patient is seen at the request of Dr. Campos for left sided posterior chest pain at the site of a prior thoracentesis. HISTORY OF PRESENT ILLNESS: The patient is an 78-year-old white male who has head/neck cancer, status post surgical excision, and a percutaneous endoscopic gastrostomy (PEG) tube. He was originally hospitalized from 10/24/2018 for aspiration pneumonia where he received antibiotic therapy with Zosyn. He was found to have a large right pleural effusion and underwent a thoracentesis on 10/30/2018, removing 800 mL of fluid. Fluid came back not malignant with a pH of 7.63, LDH of 157 with a corresponding serum LDH of 200 and he was found to have 1655 white cells, 84% of which were mononucleosis and presumably lymphocytic. This looks to be a mildly exudative, if not transudative lymphocytic pleural effusion. He stated that he was lying down and going to bed after being discharged from the hospital and he heard a popping sound on his right side. This was accompanied by pain at the thoracentesis site. He did not complain of shortness of breath or increased cough. He did notice some blood in his sputum, but has had that in the past. It was only speckled blood. He denies fevers, chills or sweats. CT scan revealed a small to moderate pleural effusion on the left side, which was smaller than what was seen on his last admission when he had the thoracentesis. He was also seen to have an infiltrative process in the left lower lobe, which is markedly greater than it was on 10/29/2018. PAST MEDICAL HISTORY: 1. Hypertension. 2. Hypothyroidism. 3. Atrial fibrillation on Eliquis. 4. Status post cerebrovascular accident. 5. Head and neck cancer. PAST SURGICAL HISTORY 1. Surgical resection of the head and neck cancer. 2. PEG tube placement. HABITS: Former smoker. He used to smoke two packs per day for 30 years, quit approximately 40 years ago. He denies alcohol use. No illicit drug use. ALLERGIES: CONTRAST MEDIA and IODINE. FAMILY HISTORY: Noncontributory to the present symptoms. MEDICATIONS: At home: - digoxin 0.125 mg daily - Eliquis 5 mg twice a day - aspirin 81 mg daily - atorvastatin 20 mg at night - bisoprolol 10 mg daily - Synthroid 50 mcg daily - Jevity 1.5 calories per PEG tube four times a day REVIEW OF SYSTEMS: CONSTITUTIONAL: Without fevers, chills, sweats or night sweats. NOSE: Without epistaxis. RESPIRATORY: See history of present illness. CARDIOVASCULAR: See history of present illness. Without anginal chest pain or tachycardia or palpitations. GASTROINTESTINAL: Without nausea, vomiting, diarrhea, constipation, melena or hematochezia. GENITOURINARY: Without dysuria or hematuria. No history of renal stones. ENDOCRINE: Without diabetes. With hypothyroidism. PSYCHIATRIC: Without pathological anxiety, depression, or psychoses. HEMATOLOGIC: Without prolonged bleeding times, even on Eliquis. NEUROLOGIC: Without paresthesias, paralyses or amaurosis fugax. EYES: Without diplopia, transient monocular vision loss, or history of jaundice. PHYSICAL EXAMINATION: Well developed, chronically ill, white male in no acute distress other than pain at the thoracentesis site. VITAL SIGNS: Temperature 97.1, heart rate is 106, respiratory rate 20 without the use of accessory muscles. He is 96% saturated on room air. Blood pressure is 111/71. EYES: Pupils are equal, round and reactive light. Extraocular motors are intact. Sclerae nonicteric. NOSE: Without deformity. MOUTH: Shows mucous membranes to be pink and moist. HEAD: Normocephalic. NECK: Supple with obvious surgical procedure. There is no thyromegaly. No lymphadenopathy. Trachea is midline. There is no jugular venous distention (JVD) or lymphadenopathy. LUNGS: Show equal breath sounds on either side. There are decreased breath sounds in the left lower hemithorax. Percussion note is dull to the left lower hemithorax. The thoracentesis site is indurated, firm and without signs of inflammation or infection. It is tender to touch. CARDIAC: Without murmurs, clicks, gallops or rubs. I cannot feel his point of maximum impulse (PMI). S1, S2 are normal. ABDOMEN: Soft, nontender. Bowel sounds are positive. He has a PEG tube in place. There is no hepatomegaly. No costovertebral angle tenderness other than that of the thoracentesis site. EXTREMITIES: No pretibial edema. No calf tenderness. No differential swelling of the upper extremities. SKIN: Warm, dry and perfused without cyanosis or mottling, including that of the nailbeds and knees. NEUROLOGIC: Shows cranial nerves II-XII intact. Gross motor and gross sensation intact. Gait is not tested. PSYCHIATRIC: Shows him to be awake, alert, and oriented times three with appropriate mood/affect and conversational. His voice of course is very hoarse. White count is 8.0 with a hemoglobin and hematocrit of 11.1 and 34.0, platelet count of 285. Differential shows 67% neutrophils, 18% lymphocytes, 10% monocytes. There are no immature forms. No toxic granulations. Electrolytes are essentially normal with a BUN and creatinine of 22 and 0.67 with a glucose of 93 and calcium of 8.2. There are no blood gases on him. Fluid analysis is as discussed above. His chest x-ray today shows blunting of the left costophrenic angle. I cannot see the left diaphragmatic border nor half of the lower third of the lower cardiac border. CT scan does not show any swelling in and around the thoracentesis site. He has a significant left lower lobe infiltrative process. The pleural effusion is on the small side rather than moderate. This was done without contrast, however, I see no significant mediastinal lymphadenopathy. Other than the infiltrative process, I see no other lung lesions suggestive of metastatic carcinoma. There is a normal configuration. He has a liver cyst in the left lobe of the liver and also a renal cyst in the left side. IMPRESSION: 1. Status post head and neck cancer. 2. Probable aspiration pneumonia. 3. Pleural effusion. 4. Hematoma at prior thoracentesis site. 5. Hypertension. 6. Hypothyroidism. 7. 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 8. Hyperlipidemia. 9. Atrial fibrillation on Eliquis. 10. History of prior CVA. PLAN/DISCUSSION: I think that the lesion at the thoracentesis site is most likely a paraspinous hematoma. It is not infected and it is not secondary to generalized inflammation of the pleural I.e. empyema. I am going to treat him with pain control and antiinflammatories. As long as the creatinine is followed closely, he can receive 50 mg of Toradol IV every 6 hours.
[2018-11-09] MEDS ORDERED: ETOMIDATE INJ 20MG/10ML VIAL IV STA (16:58)
[2018-11-09] MEDS ORDERED: SUCCINYLCHOLINE INJ 200 MG/10 ML VIAL (J0330) IV STA (16:58)
[2018-11-09] MEDS ORDERED: SUCCINYLCHOLINE INJ 200 MG/10 ML VIAL (J0330) As Ordered ONE (16:59)
[2018-11-09] MEDS ORDERED: ETOMIDATE INJ 20MG/10ML VIAL As Ordered ONE (16:59)
[2018-11-09] MEDS ORDERED: FUROSEMIDE 40 MG/4 ML VIAL (J1940) IV ONE (17:00)
[2018-11-09] MEDS ORDERED: IPRATROPIUM 0.5MG/ALBUTEROL 2.5MG INH SOL UD 3ML (DUONEB)(J7620) NEB ONE (17:00)
[2018-11-09] MEDS ORDERED: MORPHINE 4 MG/ML 1ML VIAL/SYRINGE (J2270) As Ordered ONE (17:18)
[2018-11-09] MEDS ORDERED: MORPHINE 4 MG/ML 1ML VIAL/SYRINGE (J2270) IV ONE (17:20)
[2018-11-09] MEDS ORDERED: MORPHINE 4 MG/ML 1ML VIAL/SYRINGE (J2270) IV PRN (17:30)
--- NOTE | 2018-11-09 17:43 | IPNPDOC ---
Text Note Date of Service The patient was seen on 11/09/18. NOTE Rapid Assessment: I 4:45PM I was paged by the floor and advised that patient was having respiratory difficulty. I had arrived to the floor by 4:47PM. Upon evaluation of the patient, he appeared to be in severe respiratory distress. Nursing staff had indicated that he had a coughing episode and had difficulty clearing his secretions. Patient was initially able to say a few words and indicated that he did not have any chest pain. I asked him specifically about if he would want to have a breathing tube placed to assist his breathing, despite his MOLST form indicating DNR and DNI. He had indicated that he would want to be intubated. Patient was on non-rebreather and still had difficulty maintaining his oxygen saturation; even on non-rebreather saturations remained at high 80s. I have discussed with the son about intubation and what he had expressed to me, they agreed that he should be intubated if that is what he stated. Patient was intubated and end tidal CO2 showed appropriate ventilation. CXR was acquired and did not reveal any significant effusion. Patient's pulse began to weaken and his saturations failed to improve significantly even on 100% FiO2. Pulmonology, and I have expressed to the family that his situation is deteriorating rapidly. It is likely that the patient will go into cardiac arrest. They expressed that they will still uphold his prior wishes about DNR. Family had indicated that he has been suffering over the last 8 years. Family agreed that he should be made comfortable. At this point patient was extubated and given medications for pain and anxiety control. I have discussed with the family again and addressed their questions and concerns. VS,Esthela, I+O VS, Esthela, I+O Laboratory Tests 11/09/18 05:36 Red Blood Count 3.39 L, Mean Corpuscular Volume 100.3 H, Mean Corpuscular Hemoglobin 32.7, Mean Corpuscular Hemoglobin Concent 32.6, Red Cell Distribution Width 14.0, Neutrophils (%) (Auto) 67.0 H, Lymphocytes (%) (Auto) 18.6 L, Monocytes (%) (Auto) 10.6 H, Eosinophils (%) (Auto) 3.0, Basophils (%) (Auto) 0.4, Neutrophils # (Auto) 5.4, Lymphocytes # (Auto) 1.5, Monocytes # (Auto) 0.9 H, Eosinophils # (Auto) 0.2, Basophils # (Auto) 0.0, Calcium Level 8.2 L Vital Signs Date Time Temp Pulse Resp B/P (MAP) Pulse Ox O2 Delivery O2 Flow Rate FiO2 11/09/18 14:00 97.4 72 19 124/66 (85) 95 11/07/18 02:41 Room Air I&O- Last 24 Hours up to 6 AM 11/09/18 06:00 Intake Total 0 ml Output Total 150 ml Balance -150 ml LEXUS PETERS MD Nov 09, 2018 17:43
[2018-11-09] MEDS: SCOPOLAMINE 1MG TRANSDERMAL PATCH TOP PRN (18:43)
--- NOTE | 2018-11-09 19:01 | CCN ---
DATE: 11/09/2018 CRITICAL CARE NOTE I responded to a rapid assessment for a the patient who was having difficulty breathing. When I got to the room, he was unable to verbalize anything, having severe hypoxia despite high levels of oxygen. He was tachycardiac and then lost responsiveness. I felt that he had an airway issue and initially he was DO NOT RESUSCITATE/DO NOT INTUBATE (DNR/DNI); however, just immediate to this event, he had expressed to Dr. Campos that he would want to be intubated if needed, but there was no change in his cardiac resuscitation status. It was felt that this was possibly an airway issue, and and he did have an issue with hypoxia. He was therefore intubated at bedside and despite intubation and bagging had significant hypoxia with oxygen saturations averaging around 83-85. On initial evaluation of the upper airway, there was dense, thick sputum in the posterior pharynx. The patient also had a severely prolonged expiratory phase with bagging. After intubation, his son was at bedside and expressed that he would not want any further resuscitation, his other son was in agreement, and they have opted to convert him to comfort measures only. They had indicated he has been suffering too much for too long. I, therefore, discussed initiating comfort measures with his primary attending and ordered extubation. GUERLINE
--- NOTE | 2018-11-09 19:19 | CCN ---
DATE OF PROCEDURE: 11/09/2018 PREPROCEDURE DIAGNOSIS/INDICATION: Hypoxia, near respiratory arrest, concern for airway obstruction. POSTPROCEDURE DIAGNOSIS: Hypoxia. PROCEDURE: Endotracheal intubation. SURGEON: Eduardo Hansen DO [employer] ATTENDANT: None ANESTHESIA: Etomidate 20 mg and succinylcholine 100 mg IV given in rapid sequence form of intubation. DESCRIPTION OF PROCEDURE: I was called to a rapid assessment recently. Patient had expressed he would want to be intubated if needed, although he remains DO NOT RESUSCITATE (DNR). I then intubated the patient after he was unconscious, hypoxic and he was having clearly difficulty speaking, had no ability to clear his own airway. I, therefore, obtained a GlideScope and RSI as I was bagging the patient to improve his oxygenation prior to this. After the patient was placed in the supine sniffing position, he was preoxygenated with 100% oxygen with a maximum O2 saturation of 88-89%. I then placed in nasopharyngeal trumpet to assist with bag mask ventilation. The patient then was given etomidate followed by succinylcholine in rapid succession. After adequate sedation with paralysis, the 4 GlideScope was used to view the posterior pharynx. There was a grade 1 view and mucus in the back of the airway. 8.0 endotracheal tube was easily passed into the airway and secured at 24 cm at the lip. Postprocedure chest x-ray shows adequate positioning. End-tidal CO2 monitoring also showed color change and auscultation revealed breath sounds in both lungs. There was a prolonged expiratory phase and therefore, the exhalation phase of bagging was allowed to be prolonged. The patient's oxygen saturations improved somewhat; maximum of 96% on 100% FiO2. However, pulse was very thready. There were no observed complications from the intubation. [facility]
--- NOTE | 2018-11-09 19:40 | ECGEPIP ---
Stationary ECG Study [facility] Test Date: 2018-11-09 Pat Name: AALIYAH LATYON Department: Room: [place] [address] Gender: M Pediatric Neuropsychologist: : 1940 Requested By: FRANCISCO Escalante Order Number: [id number] Reading MD: Meek Gallegos Measurements Intervals [place] Rate: 106 P: WI: 0 QRS: 1 QRSD: 101 T: 13 QT: 332 QTc: 443 Interpretive Statements ATRIAL FIBRILLATION WITH RAPID VENTRICULAR RESPONSE MODERATE VOLTAGE CRITERIA FOR LVH, CONSIDER NORMAL VARIANT NONSPECIFIC ST & T-WAVE ABNORMALITY SIMILAR TO 11/07/18, HR IS FASTER TODAY Electronically Signed On 11-09-2018 19:39:33 EDT by Meek Gallegos
--- NOTE | 2018-11-09 19:52 | REP ---
Clinical: Shortness of breath. Comparison: 11/09/2018 at 07:00 a.m. . Findings: Endotracheal tube 2 cm above the vida. Mediastinum and cardiac silhouette are within normal limits. Improved aeration to the left hemithorax is noted with continued left lower lobe/retrocardiac atelectasis/infiltrate and small pleural effusion. Impression: Improved aeration. Left lower lobe infiltrate/atelectasis and small pleural effusion Electronically Signed by Tyrone Velasquez MD 11/09/2018 07:44 P
[2018-11-09] MEDS: LORazepam 2 MG/ML VIAL (J2060) IV PRN ×2 (20:55→23:12)
[2018-11-10] MEDS: LORazepam 2 MG/ML VIAL (J2060) IV PRN ×2 (10:21→17:35)
[2018-11-10] MEDS: MORPHINE 4 MG/ML 1ML VIAL/SYRINGE (J2270) IV PRN ×2 (10:25→17:38)
--- NOTE | 2018-11-10 13:15 | IPNPDOC ---
Date Seen The patient was seen on 11/10/18. Progress Note SUBJECTIVE: Patient was seen this morning. Yesterday evening he had developed difficulty breathing and subsequently a rapid assessment was called. He had been intubated but continued to remain hypoxic. The patients son was at bedside at the time and had stated not to continue with resuscitative measures. 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 Today the patient is lying in bed he is asleep. He appears comfortable. His two sons are accompanying him at bedside. They stated that they believe he looks comfortable. OBJECTIVE PHYSICAL EXAMINATION: PATIENT IS COMFORT MEASURES ONLY VITAL SIGNS: Not taken LABORATORY DATA, IMAGING STUDIES, MICROBIOLOGY: No longer taken ASSESSMENT AND PLAN:Patient is a 78-year-old male with a past medical history significant for hypertension, hypothyroidism, atrial fibrillation on eliquis, cerebral vascular accident, and neck cancer s/p surgical excision, chemotherapy, and radiation with subsequent PEG tube placement who presented to the [facility] Emergency Department with complaint of right sided back pain at the site of recent thoracentesis on 10/30/2018. CT imaging in the emergency department suggested a possible left lower lobe pneumonia. Patient was treated with IV Zosyn in the emergency department. Patient is admitted to hospital service with IV Levaquin. PROBLEMS: 1. Acute Hypoxic Respiratory Failure with inability to maintain oxygen saturations on 100% Non-rebreather -Patient had complained of shortness of breath yesterday evening and subsequently went unresponsive. He was intubated at the time but continued to clinically deteriorate. He was subsequently extubated and made Comfort Measures only. 2. Comfort Measures Only -Morphine Sulfate 4mg Q2HPRN -Scopolamine 1 mg Q3DPRN -Ativan 1 mg Q2HPRN DISPOSITION: Poor prognosis VS, I&O, 24H, Fishbone Vital Signs/I&O Vital Signs Date Time Temp Pulse Resp B/P (MAP) Pulse Ox O2 Delivery O2 Flow Rate FiO2 11/10/18 09:00 10.0 11/09/18 17:16 86 103/66 (78) 86 11/09/18 14:00 97.4 19 11/07/18 02:41 Room Air I&O- Last 24 Hours up to 6 AM 11/10/18 06:00 Intake Total 337 ml Output Total 100 ml Balance 237 ml Laboratory Data Microbiology Microbiology 11/07/18 Blood Culture - Preliminary, Resulted No Growth after 72 hours. All specime... 11/07/18 Blood Culture - Preliminary, Resulted No Growth after 72 hours. All specime... GME ATTESTATION GME ATTESTATION My faculty preceptor for this patient encounter was physically present during the encounter and was fully available. All aspects of the patient interview, examination, medical decision making process, and medical care plan development were reviewed and approved by the faculty preceptor. The faculty preceptor is aware and concurs with the plan as stated in the body of this note and will attest to such by his/her cosignature. ATTENDING NOTE I, Mahogany Peters, have both independently examined this patient as well as reviewed the documentation. I have discussed in detail with the resident the findings and plan of treatment as documented in the residents documentation. I will continue to follow the patient and offer further guidance to the patients care as necessary during this hospital stay. KIM DAS DO Nov 10, 2018 10:21 MAHOGANY PETERS MD Nov 11, 2018 17:21
[2018-11-10] MEDS ORDERED: MORPHINE 10MG/0.5ML ORAL CONCENTRATE SOLUTION U/D SL PRN (18:00)
[2018-11-10] MEDS ORDERED: LORazepam 2 MG/ML VIAL (J2060) IV PRN (18:00)
[2018-11-10] MEDS: MORPHINE 10MG/0.5ML ORAL CONCENTRATE SOLUTION U/D SL PRN (19:43)
[2018-11-10] MEDS: LORazepam 2 MG TAB PO PRN (20:09)
[2018-11-11] MEDS: LORazepam 2 MG TAB PO PRN ×3 (00:31→13:10)
[2018-11-11] MEDS: MORPHINE 10MG/0.5ML ORAL CONCENTRATE SOLUTION U/D SL PRN ×7 (07:47→23:37)
--- NOTE | 2018-11-11 10:20 | IPNPDOC ---
Date Seen The patient was seen on 11/11/18. Progress Note SUBJECTIVE: Patient was seen this morning. His family was present at bedside. 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 His family states that he appears comfortable. He had lost IV access yesterday and his pain medications were changed to sublingual. Patient does respond to questions and denies being in any pain. OBJECTIVE PHYSICAL EXAMINATION: Patient is Comfort Measures Only VITAL SIGNS: No longer taken LABORATORY DATA, IMAGING STUDIES, MICROBIOLOGY: No longer drawn ASSESSMENT AND PLAN:Patient is a 78-year-old male with a past medical history significant for hypertension, hypothyroidism, atrial fibrillation on eliquis, cerebral vascular accident, and neck cancer s/p surgical excision, chemotherapy, and radiation with subsequent PEG tube placement who presented to the [facility] Emergency Department with complaint of right sided back pain at the site of recent thoracentesis on 10/30/2018. CT imaging in the emergency department suggested a possible left lower lobe pneumonia. Patient was treated with IV Zosyn in the emergency department. Patient is admitted to hospital service with IV Levaquin. PROBLEMS: 1. Acute Hypoxic Respiratory Failure with inability to maintain oxygen saturations on 100% Non-rebreather -Patient had complained of shortness of breath 11/09/2018 and subsequently went unresponsive. He was intubated at the time but continued to clinically deteriorate. He was subsequently extubated and made Comfort Measures only. 2. 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 All specime... 11/07/18 Blood Culture - Preliminary, Resulted No Growth after 72 hours. All specime... GME ATTESTATION GME ATTESTATION My faculty preceptor for this patient encounter was physically present during the encounter and was fully available. All aspects of the patient interview, e xamination, medical decision making process, and medical care plan development were reviewed and approved by the faculty preceptor. The faculty preceptor is aware and concurs with the plan as stated in the body of this note and will attest to such by his/her cosignature. ATTENDING NOTE I, Mahogany Peters, have both independently examined this patient as well as rev iewed the documentation. I have discussed in detail with the resident the findings and plan of treatment as documented in the residents documentation. I will continue to follow the patient and offer further guidance to the patients care as necessary during this hospital stay. KIM DAS DO Nov 11, 2018 10:20 MAHOGANY PETERS MD Nov 11, 2018 17:25
[2018-11-12] MEDS: MORPHINE 10MG/0.5ML ORAL CONCENTRATE SOLUTION U/D SL PRN ×3 (10:09→15:29)
--- NOTE | 2018-11-12 13:09 | IPNPDOC ---
Text Note Date of Service The patient was seen on 11/12/18. NOTE Subjective: Patient is an 78-year-old male with a PMHx of A. Fib (on Eliquis), HTN, DLP, CVA, Hx of Neck CA (s/p surgery / radiation/ chemotherapy), Dysphagia s/p PEG tube placement, Hypothyroidism who presented to [facility] with complaints of left-sided back pain after a recent thoracentesis on 10/30. Patient was recently admitted from 10/24/2018 to 11/01/2018 for shortness of breath and underwent a thoracocentesis on for removal of approximately 500 cc of fluid. Patient had received antibiotics with Zosyn for 5 days. Was subsequently discharged with diuretics. Patient presented back to the emergency room after complaining of sudden onset left back pain after hearing a sudden popping sound. Is likely that the patient has had hematoma after completing several imaging studies. Cardiothoracic surgery was called on consultation. Patient was experiencing respiratory difficulty on 11/09, afternoon. Patient was in respiratory distress and had indicated that he would want to be intubated, despite his MOLST form indicating otherwise. Patient was intubated and his CODE STATUS remained unchanged at DNR. Patient's family had arrived. They were advised of the patient's condition appears to be deteriorating and have again reiterated that they would like to maintain the patient on DO NOT RESUSCITATE. , It was decided the patient will be transition to comfort measures only. MOLST form was updated. Objective: Vitals: No longer taken General: Lying in bed, no acute distress, comfortable, Sleeping but arousable Full examination not completed Assessment: s/p Acute respiratory distress - requiring intubation Hematoma development Acute metabolic encephalopathy Left lower lobe pneumonia Atrial fibrillation DLP CVA Hx of Neck CA (s/p surgery / radiation/ chemotherapy) Dysphagia s/p PEG tube placement Hypothyroidism DVT prophylaxis Plan: - Patient has been transition to comfort measures only - Most form has been updated - Nonessential medications are been discontinued medications for pain and anxiety alone have been instituted Code Status: - DNR / DNI Disposition: - Will discuss with Case management / PFS on Tuesday VS,Fishbone, I+O VS, Fishbone, I+O Vital Signs Date Time Temp Pulse Resp B/P (MAP) Pulse Ox O2 Delivery O2 Flow Rate FiO2 11/12/18 10:39 16 11/12/18 07:30 10.0 11/09/18 17:16 86 103/66 (78) 86 11/09/18 14:00 97.4 11/07/18 02:41 Room Air I&O- Last 24 Hours up to 6 AM 11/12/18 06:00 Intake Total 0 ml Output Total 600 ml Balance -600 ml LEXUS PETERS MD Nov 12, 2018 13:09
[2018-11-12] MEDS: SCOPOLAMINE 1MG TRANSDERMAL PATCH TOP PRN (20:36)
[2018-11-13] MEDS: LORazepam 2 MG TAB PO PRN (11:33)
--- NOTE | 2018-11-13 12:47 | IPNPDOC ---
Text Note Date of Service The patient was seen on 11/13/18. NOTE Subjective: Patient is an 78-year-old male with a PMHx of A. Fib (on Eliquis), HTN, DLP, CVA, Hx of Neck CA (s/p surgery / radiation/ chemotherapy), Dysphagia s/p PEG tube placement, Hypothyroidism who presented to [facility] with complaints of left-sided back pain after a recent thoracentesis on 10/30. Patient was recently admitted from 10/24/2018 to 11/01/2018 for shortness of breath and underwent a thoracocentesis on for removal of approximately 500 cc of fluid. Patient had received antibiotics with Zosyn for 5 days. Was subsequently discharged with diuretics. Patient presented back to the emergency room after complaining of sudden onset left back pain after hearing a sudden popping sound. Is likely that the patient has had hematoma after completing several imaging studies. Cardiothoracic surgery was called on consultation. Patient was experiencing respiratory difficulty on 11/09, afternoon. Patient was in respiratory distress and had indicated that he would want to be intubated, despite his MOLST form indicating otherwise. Patient was intubated and his CODE STATUS remained unchanged at DNR. Patient's family had arrived. They were advised of the patient's condition appears to be deteriorating and have again reiterated that they would like to maintain the patient on DO NOT RESUSCITATE. , It was decided the patient will be transition to comfort measures only. MOLST form was updated. Patient was seen and examined at bedside. Currently is nonresponsive, does not appear to be in any acute distress. Objective: Vitals: No longer taken General: Lying in bed, no acute distress, comfortable, Sleeping but arousable Full examination not completed Assessment: s/p Acute respiratory distress - requiring intubation Hematoma development Acute metabolic encephalopathy Left lower lobe pneumonia Atrial fibrillation DLP CVA Hx of Neck CA (s/p surgery / radiation/ chemotherapy) Dysphagia s/p PEG tube placement Hypothyroidism DVT prophylaxis Plan: - Patient has been transition to comfort measures only - MOLST form has been updated - Nonessential medications are been discontinued medications for pain and anxiety alone have been instituted - Discussed hospice with family; however would not like to transition to Hospice House or Home with Hospice at this time Code Status: - DNR / DNI VS,Fishbone, I+O VS, Fishbone, I+O Vital Signs Date Time Temp Pulse Resp B/P (MAP) Pulse Ox O2 Delivery O2 Flow Rate FiO2 11/13/18 08:00 8.0 11/12/18 15:59 16 11/09/18 17:16 86 103/66 (78) 86 11/09/18 14:00 97.4 11/07/18 02:41 Room Air I&O- Last 24 Hours up to 6 AM 11/13/18 06:00 Intake Total 360 ml Output Total 600 ml Balance -240 ml LEXUS PETERS MD Nov 13, 2018 12:47
[2018-11-13] MEDS: MORPHINE 10MG/0.5ML ORAL CONCENTRATE SOLUTION U/D SL PRN (17:03)
[2018-11-14] MEDS: LORazepam 2 MG TAB PO PRN ×2 (06:33→18:08)
[2018-11-14] MEDS: MORPHINE 10MG/0.5ML ORAL CONCENTRATE SOLUTION U/D SL PRN ×2 (06:39→18:09)
--- NOTE | 2018-11-14 15:42 | IPNPDOC ---
Subjective Date Seen The patient was seen on 11/14/18. Subjective Chief Complaint/HPI Patient seen and examined at the bedside. He remains comfort measures only. The patient's sons were updated at the bedside, all questions were answered to their satisfaction.. Objective Physical Examination General Exam: Positive: No Acute Distress ENT Exam: Positive: Atraumatic, Mucous membr. moist/pink Neck Exam: Negative: JVD Chest Exam: Positive: Diminished Psych Exam: Negative: Oriented x 3 Assessment /Plan Plan/VTE VTE Prophylaxis Ordered?: No Plan s/p Acute Hypoxic Respiratory Failure - requiring intubation Hematoma development Acute metabolic encephalopathy Left lower lobe pneumonia Atrial fibrillation DLP CVA Hx of Neck CA (s/p surgery / radiation/ chemotherapy) Dysphagia s/p PEG tube placement Hypothyroidism Patient is currently Comfort Measures Only. We will cont to provide supportive care. PFS on board. VS, I&O, 24H, Fishbone Vital Signs/I&O Vital Signs Date Time Temp Pulse Resp B/P (MAP) Pulse Ox O2 Delivery O2 Flow Rate FiO2 11/14/18 09:40 6.0 11/14/18 07:09 18 11/09/18 17:16 86 103/66 (78) 86 11/09/18 14:00 97.4 I&O- Last 24 Hours up to 6 AM 11/14/18 06:00 Intake Total 360 ml Output Total 500 ml Balance -140 ml Laboratory Data Microbiology Microbiology 11/07/18 Blood Culture - Final, Complete NO GROWTH AFTER 5 DAYS 11/07/18 Blood Culture - Final, Complete NO GROWTH AFTER 5 DAYS ALEJO ONTIVEROS MD Nov 14, 2018 15:42
[2018-11-15] MEDS: MORPHINE 10MG/0.5ML ORAL CONCENTRATE SOLUTION U/D SL PRN ×3 (06:05→21:22)
--- NOTE | 2018-11-15 16:06 | IPNPDOC ---
Subjective Date Seen The patient was seen on 11/15/18. Subjective Chief Complaint/HPI Patient seen and examined at the bedside. Remains comfort measures only. No acute events noted. Objective Physical Examination General Exam: Positive: No Acute Distress ENT Exam: Positive: Atraumatic, Mucous membr. moist/pink Neck Exam: Negative: JVD Chest Exam: Positive: Diminished Psych Exam: Negative: Oriented x 3 Assessment /Plan Plan/VTE VTE Prophylaxis Ordered?: No Plan s/p Acute Hypoxic Respiratory Failure - requiring intubation Hematoma development Acute metabolic encephalopathy Left lower lobe pneumonia Atrial fibrillation DLP CVA Hx of Neck CA (s/p surgery / radiation/ chemotherapy) Dysphagia s/p PEG tube placement Hypothyroidism Patient is currently Comfort Measures Only. We will cont to provide supportive care. PFS on board. VS, I&O, 24H, Fishbone Vital Signs/I&O Vital Signs Date Time Temp Pulse Resp B/P (MAP) Pulse Ox O2 Delivery O2 Flow Rate FiO2 11/15/18 09:10 6.0 11/15/18 06:35 12 11/09/18 17:16 86 103/66 (78) 86 11/09/18 14:00 97.4 I&O- Last 24 Hours up to 6 AM 11/15/18 06:00 Intake Total 0 ml Output Total 700 ml Balance -700 ml Laboratory Data Microbiology Microbiology 11/07/18 Blood Culture - Final, Complete NO GROWTH AFTER 5 DAYS 11/07/18 Blood Culture - Final, Complete NO GROWTH AFTER 5 DAYS ALEJO ONTIVEROS MD Nov 15, 2018 16:06
[2018-11-15] MEDS: LORazepam 2 MG TAB PO PRN ×2 (16:37→21:21)
[2018-11-16] MEDS: SCOPOLAMINE 1MG TRANSDERMAL PATCH TOP PRN (06:00)
[2018-11-16] MEDS: LORazepam 2 MG TAB PO PRN (06:00)
[2018-11-16] MEDS: MORPHINE 10MG/0.5ML ORAL CONCENTRATE SOLUTION U/D SL PRN (06:01)
--- NOTE | 2018-11-16 17:38 | IPNPDOC ---
Subjective Date Seen The patient was seen on 11/16/18. Subjective Chief Complaint/HPI No acute overnight events noted. We will continue to titrate pain medication to comfort. Objective Physical Examination General Exam: Positive: No Acute Distress ENT Exam: Positive: Atraumatic, Mucous membr. moist/pink Neck Exam: Negative: JVD Chest Exam: Positive: Diminished Psych Exam: Negative: Oriented x 3 Assessment /Plan Plan/VTE VTE Prophylaxis Ordered?: No Plan s/p Acute Hypoxic Respiratory Failure - requiring intubation Hematoma development Acute metabolic encephalopathy Left lower lobe pneumonia Atrial fibrillation DLP CVA Hx of Neck CA (s/p surgery / radiation/ chemotherapy) Dysphagia s/p PEG tube placement Hypothyroidism Patient is currently Comfort Measures Only. We will cont to provide supportive care. PFS on board. VS, I&O, 24H, Fishbone Vital Signs/I&O Vital Signs Date Time Temp Pulse Resp B/P (MAP) Pulse Ox O2 Delivery O2 Flow Rate FiO2 11/16/18 07:43 6.0 11/15/18 17:11 20 I&O- Last 24 Hours up to 6 AM 11/16/18 06:00 Intake Total 0 ml Output Total 600 ml Balance -600 ml Laboratory Data Microbiology Microbiology 11/07/18 Blood Culture - Final, Complete NO GROWTH AFTER 5 DAYS 11/07/18 Blood Culture - Final, Complete NO GROWTH AFTER 5 DAYS ALEJO ONTIVEROS MD Nov 16, 2018 17:38
--- NOTE | 2018-11-17 17:58 | DS.PDOC ---
Discharge Summary General Date of Admission Nov 08, 2018 at 19:10 Date of Discharge 11/16/18 Specialist/Consultants Involve Dr. Fernando of Cardiothoracic Surgery and Dr. Hansen of Pulmonary Discharge Summary PROCEDURES PERFORMED DURING STAY: None. ADMITTING/DISCHARGE DIAGNOSES: s/p Acute Hypoxic Respiratory Failure - requiring intubation Hematoma development Acute metabolic encephalopathy Left lower lobe pneumonia Atrial fibrillation DLP CVA Hx of Neck CA (s/p surgery / radiation/ chemotherapy) Dysphagia s/p PEG tube placement Hypothyroidism COMPLICATIONS/CHIEF COMPLAINT: Chest Wall Pain Pneumonia. HISTORY OF PRESENT ILLNESS: . 78-year-old male with a PMHx of A. Fib (on Eliquis), HTN, DLP, CVA, Hx of Neck CA (s/p surgery / radiation/ chemotherapy), Dysphagia s/p PEG tube placement, Hypothyroidism who presented to [facility] with complaints of left-sided back pain after a recent thoracentesis on 10/30. Patient was recently admitted from 10/24/2018 to 11/01/2018 for shortness of breath and underwent a thoracocentesis on for removal of approximately 500 cc of fluid. Patient had received antibiotics with Zosyn for 5 days. He was subsequently discharged with diuretics. Patient presented back to the emergency room after complaining of sudden onset left back pain after hearing a sudden popping sound. It is likely that the patient has had hematoma after completing several imaging studies. Cardiothoracic surgery was called on consultation for further evaluation. Patient was experiencing respiratory difficulty on the afternoon of 11/09. Patient was in respiratory distress and had indicated that he would want to be intubated, despite his MOLST form indicating otherwise. Patient was intubated and his CODE STATUS remained unchanged at DNR. Patient's family had arrived. They were advised of the patient's condition appears to be deteriorating and have again reiterated that they would like to maintain the patient on DO NOT RESUSCITATE. , It was decided the patient will be transition to comfort measures only. MOLST form was updated. The patient on 11/16/18 @ 1999. DISCHARGE MEDICATIONS: Please see below. ALLERGIES: Please see below. LABORATORY DATA: Please see below. IMAGING: EXAM: CT Chest Without Contrast EXAM DATE/TIME: 11/07/2018 3:43 AM CLINICAL HISTORY: 78 years old, male; Pain; Chest pain; Left-sided chest pain; Additional info: Left post chest wall pain TECHNIQUE: Imaging protocol: Axial computed tomography images of the chest without intravenous contrast. Coronal and sagittal reformatted images were created and reviewed. 3D rendering: MIP reconstructed images were created and reviewed. Radiation optimization: All CT scans at this facility use at least one of these dose optimization techniques: automated exposure control; mA and/or kV adjustment per patient size (includes targeted exams where dose is matched to clinical indication); or iterative reconstruction. COMPARISON: CT Chest without contrast 10/29/2018 10:34 AM FINDINGS: Lungs: There is central predominant consolidation in the left lower lobe and there are poorly defined reticulonodular densities in the left lower lobe and in the lingula, which are new or more apparent than on the prior exam, and most consistent with pneumonia. There is less volume loss in the left lower lobe compared to the prior exam. There is some continued high density material in the atelectatic left lower lobe, which may be dense aspirated material or calcification. Pleural space: There is a small left pleural effusion, slightly smaller than on the prior exam. The small right pleural effusion seen previously has resolved. Heart: There is mild cardiomegaly. There is a trace pericardial fluid. There is severe atherosclerotic calcification of the coronary arteries. Aorta: The aorta demonstrates severe atherosclerotic calcification. There is ectasia of the descending thoracic aorta, unchanged. Lymph nodes: Unremarkable. No enlarged lymph nodes. Bones/joints: Degenerative endplate changes are seen at multiple levels in the visualized spine. Soft tissues: There is nonspecific gynecomastia. Liver: There is a 2.0 cm lesion with fluid attenuation consistent with a cyst in the left lobe of liver, unchanged. Gallbladder and bile ducts: Gallstones are present. Kidneys and ureters: There is a 3.5 cm cyst in the left kidney upper pole, incompletely included. IMPRESSION: 1. The left pleural effusion is slightly smaller than on the prior exam and the right pleural effusion has resolved. 2. There is a decrease in atelectasis within the left lower lobe, but there is now central predominant consolidation in the left lower lobe and poorly defined reticulonodular densities now present in the left lower lobe and the lingula, which are most consistent with pneumonia. Portable chest x-ray: Single view. History: Evaluation of pleural effusion. Comparison radiograph October 30, 2018. Findings: Left hemidiaphragm remains elevated. There is an infiltrate in the left lower lobe similar to but not identical with the infiltrate seen previously. This may be recurrent pneumonia or persistent pneumonia. There is slight blunting of the left lateral pleural angle indicating a small amount of pleural fluid. Right lung is clear. There are surgical clips in the soft tissues of the neck on the left. Cardiomegaly is again observed unchanged. Impression: Elevated left hemidiaphragm with persistent versus recurrent infiltrate in the left lower lobe and slight blunting of the left lateral pleural angle. ULTRASOUND POSTERIOR THORACIC WALL: Real-time ultrasound evaluation of posterior lower thoracic wall performed on the left where there is a palpable abnormality due to trauma. There is an intramuscular complex fluid collection at this location measuring 4.4 x 1.8 x 2.0 cm. This most likely represents a hematoma. Clinical: Shortness of breath. Comparison: 11/09/2018 at 07:00 a.m. . Findings: Endotracheal tube 2 cm above the vida. Mediastinum and cardiac silhouette are within normal limits. Improved aeration to the left hemithorax is noted with continued left lower lobe/retrocardiac atelectasis/infiltrate and small pleural effusion. Impression: Improved aeration. Left lower lobe infiltrate/atelectasis and small pleural effusion DISPOSITION: 20 . TIME SPENT ON DISCHARGE: Greater than 30 minutes. Vital Signs/I&Os Vital Signs Date Time Temp Pulse Resp B/P (MAP) Pulse Ox O2 Delivery O2 Flow Rate FiO2 11/16/18 07:43 6.0 11/15/18 17:11 20 I&O- Last 24 Hours up to 6 AM 11/17/18 06:00 Intake Total 0 ml Output Total 0 ml Balance 0 ml Microbiology Microbiology 11/07/18 Blood Culture - Final, Complete NO GROWTH AFTER 5 DAYS 11/07/18 Blood Culture - Final, Complete NO GROWTH AFTER 5 DAYS Discharge Medications Scheduled (Jevity 1.5 Xander) 1 Liq Liq, 1 LIQ PEG QID, (Reported) (Digoxin) 125 Mcg Tab, 125 MCG PEG DAILY, (Reported) TAKES AT NOON Apixaban Base (Eliquis) 5 Mg Tab, 5 MG PEG BID, (Reported) Aspirin (Aspirin 81) 81 Mg Tab, 81 MG PEG DAILY, (Reported) TAKES AT NOON Atorvastatin Calcium (Atorvastatin Calcium) 20 Mg Tab, 20 MG PEG QPM, (Reported) Bisoprolol Fumarate (Bisoprolol Fumarate) 10 Mg Tab, 10 MG PEG DAILY, (Reported) Levothyroxine Sodium (Synthroid) 50 Mcg Tab, 50 MCG PEG DAILY, (Reported) Scheduled PRN Albuterol Sulfate (Ventolin Hfa) 108 Mcg/Act Aer, 2 PUFFS INH Q4H PRN for SHORTNESS OF BREATH, (Reported) Allergies Coded Allergies: Contrast Media (Verified Allergy, Mild, RASH, 06/17/14) iodine (Verified Allergy, Unknown, 11/08/18) ALEJO ONTIVEROS MD Nov 17, 2018 17:58
== END 2018-11-16 20:00 | disposition expired | DRG 919 ==
LOC: M ED 02:40 → M ED INP 10:29 → M MS5PR 14:47 → OBSVTOIN 11-08 19:10 → M PCU 11-08 20:25 → M MS5PR 11-09 13:48
PROVIDERS: ADMIT Internal Medicine; ATTEND Internal Medicine
PROC: 0BH17EZ Insertion of Endotracheal Airway into Trachea, Via Natural or Artificial Opening (ICD-10-PCS; principal; 2018-11-09)
DX: M96.841 Postprocedural hematoma of a musculoskeletal structure following other procedure (principal); J18.9 Pneumonia, unspecified organism; J96.01 Acute respiratory failure with hypoxia; G93.41 Metabolic encephalopathy; I48.91 Unspecified atrial fibrillation; E03.9 Hypothyroidism, unspecified; E78.5 Hyperlipidemia, unspecified; I10 Essential (primary) hypertension; Z51.5 Encounter for palliative care; Z66 Do not resuscitate; Z92.21 Personal history of antineoplastic chemotherapy; Z92.3 Personal history of irradiation; Z93.1 Gastrostomy status; Z85.89 Personal history of malignant neoplasm of other organs and systems; Z79.01 Long term (current) use of anticoagulants; Z87.891 Personal history of nicotine dependence; Z79.82 Long term (current) use of aspirin; Z79.899 Other long term (current) drug therapy; Z91.041 Radiographic dye allergy status; Z88.8 Allergy status to other drugs, medicaments and biological substances; Y84.2 Radiological procedure and radiotherapy as the cause of abnormal reaction of the patient, or of later complication, without mention of misadventure at the time of the procedure; R13.10 Dysphagia, unspecified